=== PATIENT | female | born 1955 | race Caucasian/White ===

== ENCOUNTER 2024-10-30 17:40 | Emergency (ER) | payer MEDICARE, SELFPAY ==
--- OUTSIDE RECORDS SUMMARY | 2023-12-11 15:36 | XMS_ITS ---
Author Organization [facility] in [place] Address [address] [place] [address] Care Team Providers Care Spanish Speaking Babysitter Name Role Phone Shahid Lenz Primary Care Provider REASON FOR VISIT lab results Encounters Encounter Location Date Provider Diagnosis [facility] [address] [place] [address] 12/11/2023 Shahid Lenz Plan Of Treatment No Information Progress Notes * Nicki VALVERDE ADOB: 7 (68 yo F)Acc No.[id number]:12/11/2023 Patient: Nicki GAN :1955 A ge:68 Y S ex:Female Address:[address] [place] [address] * true * Date: Generated for Azalia oneill/Fapavel/eTransmitting on: 0 10/30/2024 05:53 PM EDT
--- OUTSIDE RECORDS SUMMARY | 2024-04-30 11:07 | XMS_ITS ---
Author Organization The [facility] in [place] Address [address] [place] [address] Care Team Providers Care Aviation Warfare Systems Operator Name Role Phone Shahid Lenz Primary Care Provider REASON FOR VISIT refill Medications Medication SIG (Take, Route, Frequency, Duration) Notes Start Date End Date Status Scopolamine HBr - apply .2- .3ml behind ear topical Q8hr for 10 days scopolamine cream .25 mg per 0.1 ml Active Encounters Encounter Location Date Provider Diagnosis [address] [address] 04/30/2024 Shahid Lenz Plan Of Treatment Medication Medication Name Sig Start Date Stop Date Notes Scopolamine HBr - apply .2- .3ml behin d ear topical Q8hr for 10 days scopolamine cream .2 5 mg per 0.1 ml Progress Notes * Nicki VALVERDE ADOB: (68 yo F)Acc No.[id number]:04/30/2024 Patient: Lewis TRACY Nicki Roberto :1955 A ge:68 Y S ex:Female Address:[address] [place] [address] * Refills Refill Scopolamine HBr Powder, -, topical, 3 Milliliter, apply .2- .3ml behind ear, Q8hr, 10 days, Refills=1 * true * Date: Generated for Azalia oneill/Larry/Jan on: 0 10/30/2024 05:53 PM EDT
--- OUTSIDE RECORDS SUMMARY | 2024-05-06 10:15 | XMS_ITS ---
Author Organization [facility] [place] Address [address] [place] [address] Care Team Providers Care Application Support Analyst Name Role Phone Shahid Lenz Primary Care Provider [phone] Allergies Allergen (clinical drug ingredient) Drug/Non Drug Allergy documented on EMR Reaction Allergy Type Onset Date Status ciprofloxacin Cipro Unknown Drug Allergy Act ely Levaquin Unknown Drug Allergy Active Substance with sulfonamide structure and antibacterial mechanism of action (substance) Sulfa Antibiotics Unknown Drug Allergy Active pravastatin Pravastatin Unknown Drug Allergy Act ely REASON FOR VISIT yearly check Medications Medication SIG (Take, Route, Frequency, Duration) Notes Start Date End Date Status Rosuvastatin Calcium 5 MG TAKE 1 TABLET BY MOUTH DAILY for 90 Active Scopolamine HBr - apply .2- .3ml behind ear topical Q8hr for 10 days scopolamine cream .25 mg per 0.1 ml Active Melatonin-Lemon [place] 10-1000 MG-MCG as directed Orally Active Metoprolol Tartrate 25 MG TAKE 1 TABLET BY MOUTH TWICE A DAY for 90 Active tiZANidine HCl 4 MG 2 tablets Orally at bedtime for 90 days 07/26/2022 Active DULoxetine HCl 60 MG TAKE ONE CAPSULE BY MOUTH DAILY for 90 days Active Lynparza 150 MG 2 tablets Orally Twice a day for 30 day(s) 12/10/2023 Active Meclizine HCl 25 MG 1 tablet as needed Orally every 12 hrs Active Lansoprazole 30 MG TAKE 1 CAPSULE BY MOUTH DAILY for 90 Active Levothyroxine Sodium 200 MCG TAKE 1 TABLET BY MOUTH EVERY DAY IN THE MORNING ON AN EMPTY STOMACH FOR 30 DAYS for 90 days Active Ciprofloxacin HCl 500 MG 1 tablet Orally every 12 hrs for 10 days 05/06/2024 Active Adult Aspirin Regimen 81 MG 1 tablet Orally Once a day Active Benzonatate 200 MG 1 capsule Orally Three times a day for 7 days 04/22/2023 Active Xifaxan 550 MG 1 tablet Orally every 8 hrs for 14 04/04/2023 Active Zofran Active traMADol HCl 50 MG 1 tablet as needed Orally 4 times a day for 7 days G62.9 09/10/2022 Active Vitamin D3 50 MCG (1999 MS) TAKE 1 TABLET BY MOUTH DAILY for 90 Active Social History Tobacco Use: Social History Observation Description Date Details (start date - stop date) Former Smoker 03/25/1973 - 03/25/1995 Tobacco Use/Smoking Question Answer Notes Patient is a former smoker When did you start smoking? 03/25/1973 When did you stop smoking? 03/25/1995 How long has it been since you last smoked? > 10 years Problems Problem Type SNOMED Code ICD Code Onset Dates Problem Status W/U Status Risk Notes Problem Hypertension (69220079) Hypertension (I10) Active confirmed Problem Hypercholesterolemia (13422003) Hypercholesterolemia (E78.00) Active confirmed Problem Gastroesophageal reflux disease (891904569) GERD (gastroesophageal reflux disease) (K21.9) Active confirmed Vital Signs Weight 179.60 lbs 05/06/2024 Height 64 in 05/06/2024 Blood pressure systolic 120 mm Hg 05/06/19 25 Blood pressure diastolic 72 mm Hg 025 BMI 30.82 kg/m2 05/06/2024 Encounters Encounter Location Date Provider Diagnosis [facility] [address] [place] [address] 05/06/2024 Shahid Lenz Hypothyroidism, unsp ecified E03.9 ; Hypertension I10 ; Hypercholesterolemia E78.00 ; GERD (gastroesophageal reflux disease) K21.9 and Fatigue R53.83 Assessments Encounter Date Diagnosis (ICD Code) Assessment Notes Treatment Notes Treatment Clinical Notes Section Notes 05/06/2024 Hypothyroidism, unspecified (ICD-10 - E03.9) 05/06/2024 Hypertension (ICD-10 - I10) 05/06/2024 Hypercholesterolemia (ICD-10 - E78.00) 05/06/2024 GERD (gastroesophage al reflux disease) (ICD-10 - K21.9) 05/06/2024 Fatigue (ICD-10 - R53.83) Plan Of Treatment Medication Medication Name Sig Start Date Stop Date Notes Ciprofloxacin HCl 500 MG 1 tablet Orally every 12 hrs for 10 days 05/06/2024 Pending Test Test Name Order Date HEMOGLOBIN A1C (GLYCO) 05/06/2024 IRON, TOTAL 05/06/2024 LIPID PANEL (CHOL/TRIG/HDL/LDL) 05/06/19 25 CBC WITH DIFF 05/06/2024 VITAMIN D, 25 LEVEL (TOTAL) 05/06/2024 Insulin Level 05/06/2024 THYROID PANEL (T4/TSH/FREE T3) 5 CMP (COMP MET WING) w/eGFR CKD-EPI 2024 Medications Administered Medication Instructions Date of Administration Dosage Notes Cyanocobalamin 05/06/2024 1 mL Progress Notes * Nicki VALVERDE ADOB: [birth year] (68 yo F)Acc No.[id number]:05/06/2024 Progress Note Patient: Nicki GAN Provider: Sukhjinder Lenz ([facility])MD :1955 A ge:68 Y S ex:Female Date:05/06/2024 Address:[address] [place], [place] [id number] Check In:01:59 PM ESTCheck O ut:03:03 PM EST Subjective: * Chief Complaints: * Y early check * HPI: G eneral: gered lung cancer - stil with inflammation bp well controled Choleesterol - on meds. * ROS: E ENT: hearing changes d enies, denies. v isual changes d enies, denies. n on-healing mouth sores d enies, denies. s wollen glands or neck lumps?denies, denies. h oarseness d enies, denies. s ore throat d enies, denies. d ifficulty swallowing d enies, denies. n ose bleeds d enies, denies. n laurie congestion d enies, denies. e ar ache d enies, denies. e ar discharge d enies, denies.?ringing in ears d enies, denies. l ight sensitivity d enies, denies. e ye pain denies, denies. b lurring d enies, denies. e ye irritation d enies, denies. d ouble vision d enies, denies. v ision loss d enies, denies. G eneral/Constitutional: Sweats: D enies, Denies. F atigue d enies, denies.?Sleep problems d enies, denies. A norexia d enies, denies. M alaise d enies, denies. W eight loss d enies, denies. F atigue or Weakness d enies, denies. F ever or Chills d enies, denies. C ardiovascular: Shortness of Breath w/lying flat d enies, denies. L ightheadedness/dizziness d enies, denies. C hest tightness/ heavy pressure d enies, denies.?Swelling of legs, ankles, or feet d enies, denies. W aking up with shortness of breath denies, denies. C hest pain d enies, denies. P alpitations d enies, denies.?Weight gain d enies, denies. R espiratory: Chronic or frequent cough d enies, denies. C oughing up blood d enies, denies. D ifficulty breathing d enies, denies. P roductive cough?denies, denies. S noring d enies, denies. S hortness of breath that awakens from sleep (PND) d enies, denies. C hest pain d enies, denies. S putum production d enies, denies. W heezing d enies, denies. M usculoskeletal: Joint pain d enies, denies. J oint Fluid d enies, denies. B ack pain d enies, denies. K nee pain d enies, denies. N byron pain d enies, denies. J oint Stiffness d enies, denies. M uscle cramps d enies, denies. Weakness of muscles d enies, denies. A rthritis d enies, denies. M uscle aches?denies, denies. P ain in shoulder(s) d enies, denies. S wollen joints d enies, denies. 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, left Modified On:07/25/2022 Status:confirmed H81.399 Vertigo, peripheral Modified On:07/25/2022 Status:confirmed K91.89 Biliary anastomotic leak Modified On:07/25/2022 Status:confirmed K56.600 Partial small bowel obstruction Modified On:07/25/2022 Status:confirmed Z98.0 Intestinal anastomos is present Modified On:07/25/2022 Status:confirmed U07.1 COVID-19 virus infec tion Modified On:07/25/2022 Status:confirmed R05.9 Cough, unspecified Modified On:07/25/2022 Status:confirmed B07.8 Other viral warts Modified On:07/25/2022 Status:confirmed E66.3 Overweight Modified On:07/25/2022 Status:confirmed G25.0 Essential tremor Modified On:04/04/2023U Status:confirmed L03.313 Cellulitis of chest wall Modified On:07/25/2022U Status:confirmed M51.9 Unspecified thoracic , thoracolumbar and lumbosacral intervertebral disc disorder Modified On:07/26/2022U Status:confirmed E03.9 Hypothyroidism, unsp ecified Modified On:04/04/2023 Status:confirmed C50.919 Malignant neoplasm o f unspecified site of unspecified female breast Modified On:09/11/2022 Status:confirmed 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 Modified On:09/11/2022 Status:confirmed J21.9 Acute bronchiolitis Modified On:04/22/2023U Status:confirmed K58.9 Irritable bowel Modified On:04/22/2023U Status:confirmed I10 Hypertension Modified On:05/06/2024 Status:confirmed E78.00 Hypercholesterolemia Modified On:05/06/2024 Status:confirmed K21.9 GERD (gastroesophage al reflux disease) Modified On:05/06/2024 Status:confirmed * Medical History: * Surgical History: R ight Breast Lumpectomy 2006Colostomy- Colorectal anastomsis, sm bowel resection Left Breast Lumpectomy 2019Bil Masectomy, left subclavian port removal 2020Total Hysterctomy Lap Ablation of liver mass 2021 * Hospitalization/Major Diagno stic Procedure: s ee above * Family History: F ather: . M other: . * Social History: T obacco Use: T obacco Use/Smoking P atient is a f ormer smoker W hen did you start smoking? 0 03/25/1973 W hen did you stop smoking? 0 03/25/1995 H ow long has it been since you last smoked??> 10 years * Medications: T akingAdult Aspirin Regimen 81 MG Tablet Delayed Release 1 tablet Orally Once a day Benzonatate 200 MG Capsule 1 capsule Orally Three times a day DULoxetine HCl 60 MG Capsule Delayed Release Particles TAKE ONE CAPSULE BY MOUTH DAILY Lansoprazole 30 MG Capsule Delayed Release TAKE 1 CAPSULE BY MOUTH DAILY Levothyroxine Sodium 200 MCG Tablet TAKE 1 TABLET BY MOUTH EVERY DAY IN THE MORNING ON AN EMPTY STOMACH FOR 30 DAYS Lynparza(Olaparib) 150 MG Tablet 2 tablets Orally Twice a day Meclizine HCl 25 MG Tablet 1 tablet as needed Orally every 12 hrs Melatonin-Lemon [place] 10-1000 MG-MCG Tablet as directed Orally Metoprolol Tartrate 25 MG Tablet TAKE 1 TABLET BY MOUTH TWICE A DAY Rosuvastatin Calcium 5 MG Tablet TAKE 1 TABLET BY MOUTH DAILY Scopolamine HBr - Powder apply .2- .3ml behind ear topical Q8hr , Notes to Pharmacist: scopolamine cream .25 mg per 0.1 mltiZANidine HCl 4 MG Tablet 2 tablets Orally at bedtime traMADol HCl 50 MG Tablet 1 tablet as needed Orally 4 times a day , Notes to Pharmacist: G62.9Vitamin D3 50 MCG (1999 UT) Tablet Chewable TAKE 1 TABLET BY MOUTH DAILY Xifaxan(rifAXIMin) 550 MG Tablet 1 tablet Orally every 8 hrs Zofran Medication List reviewed and reconciled with the patientTaking Adult Aspirin Regimen 81 MG Tablet Delayed Release 1 tablet Orally Once a day Taking Benzonatate 200 MG Capsule 1 capsule Orally Three times a day Taking DULoxetine HCl 60 MG Capsule Delayed Release Particles TAKE ONE CAPSULE BY MOUTH DAILY Taking Lansoprazole 30 MG Capsule Delayed Release TAKE 1 CAPSULE BY MOUTH DAILY Taking Levothyroxine Sodium 200 MCG Tablet TAKE 1 TABLET BY MOUTH EVERY DAY IN THE MORNING ON AN EMPTY STOMACH FOR 30 DAYS Taking Lynparza(Olaparib) 150 MG Tablet 2 tablets Orally Twice a day Taking Meclizine HCl 25 MG Tablet 1 tablet as needed Orally every 12 hrs Taking Melatonin-Lemon [place] 10- 1000 MG-MCG Tablet as directed Orally Taking Metoprolol Tartrate 25 MG Tablet TAKE 1 TABLET BY MOUTH TWICE A DAY Taking Rosuvastatin Calcium 5 MG Tablet TAKE 1 TABLET BY MOUTH DAILY Taking Scopolamine HBr - Powder apply .2- .3ml behind ear topical Q8hr , Notes to Pharmacist: scopolamine cream .25 mg per 0.1 mlTaking tiZANidine HCl 4 MG Tablet 2 tablets Orally at bedtime Taking traMADol HCl 50 MG Tablet 1 tablet as needed Orally 4 times a day , Notes to Pharmacist: G62.9Taking Vitamin D3 50 MCG (1999 UT) Tablet Chewable TAKE 1 TABLET BY MOUTH DAILY Taking Xifaxan(rifAXIMin) 550 MG Tablet 1 tablet Orally every 8 hrs Taking Zofran Medication List reviewed and reconciled with the patient * Allergies: P ravastatinCiproLevaquinSulfa Antibioticsno[Allergies Verified] Objective: * Vitals: W t:179.60lbs, Ht: 64 in, BP:120/72mm Hg, BMI:30.82Index, Ht-cm: 162.56 cm, Wt-k.47 kg. * Examination: P hysical Exam: GENERAL: w ell developed, well nourished, in no acute distress , well developed, well nourished, in no acute distress. HEAD: n ormocephalic/atraumatic , normocephalic/atraumatic.? EYES: p upils equal, round and reactive to light, conjunctivae and sclerae normal , pupils equal, round and reactive to light, conjunctivae and sclerae normal.? EARS: n o deformity or lesion of external ear, canals and TM appear normal bilaterally, TM's intact, not inflamed with normal light reflex, hearing grossly normal to conversational speech , no deformity or lesion of external ear, canals and TM appear normal bilaterally, TM's intact, not inflamed with normal light reflex, hearing grossly normal to conversational speech. NOSE: n o deformity, discharge, inflammation, or lesions , no deformity, discharge, inflammation, or lesions. MOUTH: m ucous membranes moist, normal oropharynx and posterior pharynx without lesions or exudates, tongue normal, dentition normal , mucous membranes moist, normal oropharynx and posterior pharynx without lesions or exudates, tongue normal, dentition normal. NECK: n byron supple, no masses or palpable cervical nodes, trachea midline, thyroid without nodules, masses, tenderness, or enlargement , neck supple, no masses or palpable cervical nodes, trachea midline, thyroid without nodules, masses, tenderness, or enlargement. CHEST: n o chest wall deformity, no chest wall tenderness , no chest wall deformity, no chest wall tenderness. LUNGS: n ormal respiratory effort and clear to auscultation, no wheezes, rales, or rhonchi, good air exchange , normal respiratory effort and clear to auscultation, no wheezes, rales, or rhonchi, good air exchange. CARDIO: r egular rate and rhythm, normal S1 and S2, nor murmur, rub, or gallop , regular rate and rhythm, normal S1 and S2, nor murmur, rub, or gallop. PULSES: n ormal capillary refill , normal capillary refill.? ABDOMEN: s oft, non-distended, non-tender, no masses , soft, non-distended, non-tender, no masses. MUSCULOSKELETAL: n o deformity or scoliosis noted, normal range of motion, joints normal, no erythema, edema, effusion, or ecchymosis , no deformity or scoliosis noted, normal range of motion, joints normal, no erythema, edema, effusion, or ecchymosis. EXTREMITY: n o clubbing, cyanosis, edema, or deformity with normal ROM in both upper and lower bilateral extremities , no clubbing, cyanosis, edema, or deformity with normal ROM in both upper and lower bilateral extremities. NEUROLOGIC: g rossly normal , grossly normal. SKIN: n o rashes, ulcerations, or suspicious lesions , no rashes, ulcerations, or suspicious lesions. LYMPH NODES: n o cervical adenopathy, nodes normal , no cervical adenopathy, nodes normal. MENTAL STATUS: a lert and oriented x3, normal mood and affect , alert and oriented x3, normal mood and affect. Assessment: * Assessment: 1. H ypothyroidism, unspecified - E03.9 (Primary) 2 . H ypertension - I10? 3. H ypercholesterolemia - E78.00 4 . G ERD (gastroesophageal reflux disease) - K21.9 5 . F atigue - R53.83 Plan: * Treatment: 2. H ypertension L AB: HEMOGLOBIN A1C (GLYCO) L AB: IRON, TOTAL L AB: LIPID PANEL (CHOL/TRIG/HDL/LDL) L AB: CBC WITH DIFF L AB: VITAMIN D, 25 LEVEL (TOTAL) L AB: Insulin Level L AB: THYROID PANEL (T4/TSH/FREE T3) L AB: CMP (COMP MET WING) w/eGFR CKD-EPI 3. H ypercholesterolemia L AB: HEMOGLOBIN A1C (GLYCO) L AB: IRON, TOTAL L AB: LIPID PANEL (CHOL/TRIG/HDL/LDL) L AB: CBC WITH DIFF L AB: VITAMIN D, 25 LEVEL (TOTAL) L AB: Insulin Level L AB: THYROID PANEL (T4/TSH/FREE T3) L AB: CMP (COMP MET WING) w/eGFR CKD-EPI 4. G ERD (gastroesophageal reflux disease) L AB: HEMOGLOBIN A1C (GLYCO) L AB: IRON, TOTAL L AB: LIPID PANEL (CHOL/TRIG/HDL/LDL) L AB: CBC WITH DIFF L AB: VITAMIN D, 25 LEVEL (TOTAL) L AB: Insulin Level L AB: THYROID PANEL (T4/TSH/FREE T3) L AB: CMP (COMP MET WING) w/eGFR CKD-EPI * Therapeutic Injections: Cyanocobalamin : 1 mL (Route: Intramuscular) given by Kaycee Crawford , on right deltoid (Fatigue) * Procedure Codes: [id number] THERAP.INJ. OF MED. INTRAMUSCULAR OR [id number] VITAMIN B-12 < 1000 MCG * * Sign off status: Completed Visit Status: C HK (Check Out) true * Provider: Sukhjinder Lenz ([facility])MD Date: 0 05/06/2024 Generated for Printi ng/Famartag/eTransmitting on: 0 10/30/2024 05:54 PM EDT History and Physical Notes * HPI (History of Present Illness) Category Sub-Category Detail Notes Category Not es General gered lung cancer - stil with inflammation bp well controled Choleesterol - on meds Examination Category Sub-Category Detail Notes Category Not es Physical Exam GENERAL: well developed, well nourished, in no acute distress , well developed, well nourished, in no acute distress HEAD: normocephalic/atraum atic , normocephalic/atraumatic EYES: pupils equal, round and reactive to light, conjunctivae and sclerae normal , pupils equal, round and reactive to light, conjunctivae and sclerae normal EARS: no deformity or lesi on of external ear, canals and TM appear normal bilaterally, TM's intact, not inflamed with normal light reflex, hearing grossly normal to conversational speech , no deformity or lesion of external ear, canals and TM appear normal bilaterally, TM's intact, not inflamed with normal light reflex, hearing grossly normal to conversational speech NOSE: no deformity, discha rge, inflammation, or lesions , no deformity, discharge, inflammation, or lesions MOUTH: mucous membranes lorraine st, normal oropharynx and posterior pharynx without lesions or exudates, tongue normal, dentition normal , mucous membranes moist, normal oropharynx and posterior pharynx without lesions or exudates, tongue normal, dentition normal NECK: neck supple, no mass es or palpable cervical nodes, trachea midline, thyroid without nodules, masses, tenderness, or enlargement , neck supple, no masses or palpable cervical nodes, trachea midline, thyroid without nodules, masses, tenderness, or enlargement CHEST: no chest wall deform ity, no chest wall tenderness , no chest wall deformity, no chest wall tenderness LUNGS: normal respiratory e ffort and clear to auscultation, no wheezes, rales, or rhonchi, good air exchange , normal respiratory effort and clear to auscultation, no wheezes, rales, or rhonchi, good air exchange CARDIO: regular rate and rhy thm, normal S1 and S2, nor murmur, rub, or gallop , regular rate and rhythm, normal S1 and S2, nor murmur, rub, or gallop PULSES: normal capillary ref ill , normal capillary refill ABDOMEN: soft, non-distended, non-tender, no masses , soft, non-distended, non- tender, no masses RECTAL: MUSCULOSKELETAL: no deformity or scol iosis noted, normal range of motion, joints normal, no erythema, edema, effusion, or ecchymosis , no deformity or scoliosis noted, normal range of motion, joints normal, no erythema, edema, effusion, or ecchymosis EXTREMITY: no clubbing, cyanosi s, edema, or deformity with normal ROM in both upper and lower bilateral extremities , no clubbing, cyanosis, edema, or deformity with normal ROM in both upper and lower bilateral extremities NEUROLOGIC: grossly normal , ernie ssly normal SKIN: no rashes, ulceratio ns, or suspicious lesions , no rashes, ulcerations, or suspicious lesions LYMPH NODES: no cervical adenopat hy, nodes normal , no cervical adenopathy, nodes normal MENTAL STATUS: alert and oriented x 3, normal mood and affect , alert and oriented x3, normal mood and affect
--- OUTSIDE RECORDS SUMMARY | 2024-10-28 13:00 | XMS_ITS | Encounter Summary ---
Author Organization [facility] Address [address] [place] [id number] Care Team Providers Care Allergist Name Role Phone Kraig Lenz MD Primary Care Provider +- Jenn Qureshi RN Unavailable [phone] Abdirashid Anderson MD Unavailable [phone] Tamia Martinez APRN.FIRMWARE ARCHITECT Unavailable [phone] Source Comments In the event this information is protected by the Federal Confidentiality of Alcohol and Drug AbusePatient Records regulations: The Federal rules restrict any use of the information to criminally investigate or prosecute any alcohol or drug abuse patient.[facility] Encounter Details Date Type Department Care Team (Latest Contact Info) Description 10/28/2024 1:00 PM EDT Infusion Center Hematology/Oncology [address] [place] [address] [place] [address] Megaloblastic anemia due to vitamin B12 deficiency (Primary Dx); 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); Dehydration Social History Tobacco Use Types Packs/Day Years Used Date Smoking Tobacco: Former Cigarettes 1 15 0 12/10/1980 - 12/11/1995 Passive Smoke Exposure: Past Smokeless Tobacco: Never Alcohol Use Standard Drinks/Week Comments No 0 (1 standard drink = 0.6 oz pur e alcohol) PHQ-2 Answer Date Recorded PHQ-2 score 0 09/27/2023 Area Deprivation Index Answer Date Jalen rded National Score (1-100), lower number is lower ri sk 81 08/31/2022 State Score (1-10), lower number is lower risk 7 08/31/2022 Data from: https://www.neighborhoodatlas.medicine.[facility]/. Last address used for calculation [address] 08/31/2022 Comments No Sex and Gender Information Value Date Recorded Sex Assigned at Female 01/04/2022 8:03 PM EDT Legal Sex Female 10:12 AM EST Gender Identity Female 01/04/2022 8:03 PM EDT Sexual Orientation Straight 08/30/2022 7: 33 PM EDT documented as of this encounter Last Filed Vital Signs Vital Sign Reading Time Taken Comments Blood Pressure 124/62 10/28/2024 1:06 PM EDT Pulse 61 10/28/2024 1:06 PM EDT Temperature 36.7 C (98 F) 10/28/2024 1:06 PM EDT Respiratory Rate 16 10/28/2024 1:06 PM EDT Oxygen Saturation 96% 10/28/2024 1:06 PM EDT Inhaled Oxygen Concentration - - Weight - - Height - - Body Mass Index - - documented in this encounter Functional Status * Are you deaf or do you have serious difficulty hearing? Answer Date of Assessment Author No 01/12/2022 10:35 AM EDT Yudith Osullivan RN * Are you blind or do you have serious difficulty seeing, even when wearing glasses? Answer Date of Assessment Author No 01/12/2022 10:35 AM EDT Yudith Osullivan RN * Do you have serious difficulty walking or climbing stairs? Answer Date of Assessment Author No 01/12/2022 10:35 AM EDT Yudith Osullivan RN * Do you have difficulty dressing or bathing? Answer Date of Assessment Author No 01/12/2022 10:35 AM EDT Yudith Osullivan RN * Because of a physical, mental, or emotional condition, do you have difficulty doing errands alone such as visiting a doctor's office or shopping? Answer Date of Assessment Author No 01/12/2022 10:35 AM EDT Yudith Osullivan RN documented as of this encounter Mental Status * Because of a physical, mental, or emotional condition, do you have serious difficulty concentrating, remembering, or making decisions? Answer Entry Date Author No 01/12/2022 10:35 AM EDT Yudith Osullivan RN documented in this encounter Plan of Treatment Upcoming Encounters Date Type Department Care Team (Latest Contact Info) Description 11/05/2024 11:40 AM EDT [facility] Hematology/Oncology [address] [place] [place] [address] Abdirashid Anderson MD [address] [place] [address] Harmon 11/10/2024 11:30 AM EDT Office Visit General Surgery [address] [place] [address] [place] [id number] [facility] [address] [place] [address] New; increase liver lesion size - ref by Dr. 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) Dehydration documented in this encounter Administered Medications Inactive Administered Medications - up to 3 most recent administrations Medication Order MAR Action Action Date Dose Rate Site cyanocobalamin 1,000 mcg injection 1,000 mcg, INTRAMUSCULAR, ONCE, 1 dose, On Sat10/28/24 at 1330Indications:Tai loblastic anemia due to vitamin B12 deficiency Given 10/28/2024 1:17 PM EDT 1,000 mcg Arm, Right NaCl 0.9% iv infusion 1,000 mL/hr (rounded to 999 mL/hr), INTRAVENOUS, Administer over 1 Hours, ONCE, 1 dose, On Sat10/28/24 at 1330Indications:Lester ocarcinoma of left breast metastatic to liver (HCC),Dehydration New Bag/Syringe/Lesvia le 10/28/2024 1:13 PM EDT 1,000 mL/hr 999 mL/hr documented in this encounter Care Teams Allergist Relationship Specialty Start Date End Date Kraig Lenz MD [address] [place] [address] PCP - General Family Medicine 11/28/21 Jenn Qureshi, CHRISTOPHER [address] [place] [address] Specialty Rehabilitation Clerk Hematology/Oncology 05/27/23 Abdirashid Anderson MD [address] [place] [address] Physician Hematology/Oncology 05/27/23 Tamia Martinez APRN.FIRMWARE ARCHITECT [address] [place] [address] Nurse Practitioner Hematology/Oncology 05/27/23 documented as of this encounter
--- OUTSIDE RECORDS SUMMARY | 2024-10-29 20:00 | XMS_ITS | Encounter Summary ---
Author Organization [facility] Address [address] [place] [address] Care Team Providers Care Television Equipment Operator Name Role Phone Kraig Lenz MD Primary Care Provider [phone] Qureshi RN Unavailable [phone] Abdirashid Anderson MD Unavailable [phone] Tamia Martinez APRN.INDUSTRIAL DESIGNER Unavailable [phone] Source Comments In the event this information is protected by the Federal Confidentiality of Alcohol and Drug AbusePatient Records regulations: The Federal rules restrict any use of the information to criminally investigate or prosecute any alcohol or drug abuse patient.[facility] Reason for Visit * Reason Comments Fever With History Of Cancer Breast canc er with mets to the liver. Pt stated fever at home today. Pt is currently on Oral cancer medications. Pt does not have fever upon arrival but has elevated heart rate. Encounter Details Date Type Department Care Team (Late st Contact Info) Description 10/29/2024 8:00 PM EDT - 10/29/2024 11:22 PM EDT Emergency [facility] Emergency Dept [address] [id number] Fever, stage 4 cancer Discharge Disposition: Home Social History Tobacco Use Types Packs/Day Years [...] is lower risk 7 08/31/2022 Data from: https://www.neighborhoodatlas.medicine.[facility]/. Last address used for calculation [address] [...] Sign Reading Time Taken Comments Blood Pressure 138/80 10/29/2024 10:59 PM EDT Pulse 86 10/29/2024 10:52 PM EDT Temperature 36.7 C (98 F) 10/29/2024 10:52 PM EDT Respiratory Rate 16 10/29/2024 10:52 PM EDT Oxygen Saturation 96% 10/29/2024 10:59 PM EDT Inhaled Oxygen Concentration - - Weight 82.1 kg (181 lb) 10/29/2024 7:59 PM EDT Height 162.6 cm (5' 4 ) 10/29/2024 7:59 PM EDT Body Mass Index 31.07 10/29/2024 7:59 PM EDT documented in this encounter Functional Status * [...] of Assessment Author No 01/12/2022 10:35 AM Yudith Carreon RN * Do you have difficulty dressing or bathing? Answer Date of Assessment Author No 01/12/2022 10:35 AM Yudith Carreon RN * Because of a physical, mental, or emotional condition, do you have difficulty doing errands alone such as visiting a doctor's office or shopping? Answer Date of Assessment Author No 01/12/2022 10:35 AM Yudith Carreon RN documented as of this encounter Mental Status * Because of a physical, mental, or emotional condition, do you have serious difficulty concentrating, remembering, or making decisions? Answer Entry Date Author No 01/12/2022 10:35 AM Yudith Carreon RN documented in this encounter Discharge Instructions * Attachments The following attachments cannot be sent through Care Everywhere. * Fever Unclear Etiology (ITALIAN) documented in this encounter Medications at Time of Discharge amoxicillin-clav ulanate potassium (AUGMENTIN) 875-125 mg per tablet Take 1 tablet by mouth two times a day for 5 days. 10 tablet 10/29/2024 11/03/2024 azithromycin (ZITHROMAX) 250 mg tablet Take 2 tablets by mouth once daily for 1 day, THEN 1 tablet once daily for 4 days. 6 tablet 10/29/2024 11/03/2024 ondansetron (ZOFRAN) 8 mg tablet TAKE 1 TABLET BY MOUTH EVERY 8 HOURS NEEDED FOR NAUSEA AND VOMITING 90 tablet 1 09/28/2024 folic acid 1 mg tablet TAKE 1 TABLET BY MOUTH EVERY DAY 90 tablet 3 08/03/2024 emollient combo no.59, bulk, (CUSTOM BASE PCCA LIPODERM) crea Apply to affected area. prochlorperazine (COMPAZINE) 10 mg tablet Take 1 tablet by mouth every 6 hours as needed. 100 tablet 1 06/06/2023 3:39 PM EDT 05/29/2023 tiZANidine (ZANAFLEX) 4 mg tablet Take 8 mg by mouth daily at bedtime. 04/04/2023 metoprolol tartrate, short acting, (LOPRESSOR) 25 mg tablet Take 25 mg by mouth two times a day. cholecalciferol, vitamin D3, 10 mcg (400 unit) cap Take 400 Units by mouth once daily. Biotin 1 mg tab Take 1,000 mcg by mouth. DULoxetine (CYMBALTA) 60 mg capsule Take 60 mg by mouth once daily. 11/05/2020 lansoprazole (PREVACID) 30 mg capsule Take 30 mg by mouth once daily. loperamide (IMODIUM) 2 mg cap(s) Take 4 mg by mouth. Takes BID 09/22/2021 meloxicam (MOBIC) 7.5 mg tablet Take 7.5 mg by mouth once daily. rosuvastatin (CRESTOR) 5 mg tablet Take 5 mg by mouth once daily. 10/14/2020 simethicone, chewable (MYLICON) 80 mg chewable tablet Take 80 mg by mouth every 6 hours as needed. levothyroxine (SYNTHROID) 175 mcg tablet Take 175 mcg by mouth once daily. 08/17/2012 Aspirin 81 mg Tab Take 81 mg by mouth. documented as of this encounter ED Notes * Mela Moise RN - 10/29/2024 11:21 PM EDT Pt A&Ox3. Equal even resp rate. Proper use of medications discussed pt. Pt verbalizes understanding. Pt home with medications to be filled. Discharged instructions hi-lighted and reviewed with pt. Pt verbalized understanding. Will follow-up with physician as instructed. No questions/ Concerns at this time of discharge. Ambulated at discharge with steady gait. * Nisha Ramírez PA-C - 10/29/2024 11:10 PM EDT ED Provider Note Patient Name: Nicki Valverde : 1955 SERVICE DATE: 10/29/24 History Patient presents with: Fever With History Of Cancer: Breast cancer with mets to the liver. Pt stated fever at home today. Pt is currently on Oral cancer medications. Pt does not have fever upon arrival but has elevated heart rate. This is a 69-year-old female with a history of breast cancer on oral anticancer drug presenting to the emergency department for evaluation of a fever. Patient states that starting last night, she wasnauseous and had a headache. She took her temperature this evening around 7 PM and found it to be 102.0 ??F. Took Tylenol and fever resolved. Denies rash, shortness of breath, cough, sore throat, abdominal pain, dysuria, leg swelling, back pain. She is scheduled to get an MRI tomorrow because she was found to have new liver metastasis with elevated liver enzymes. 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 used: No PAST MEDICAL HISTORY Diagnosis Date Arthritis Basal cell carcinoma (BCC) of face Biliary colic Breast cancer (HCC) Chronic kidney disease Diverticulitis Dizziness GERD (gastroesophageal reflux disease) Hx of sleep apnea Hyperlipidemia Hypertension Hypothyroidism Kidney stones Liver metastasis Megaloblastic anemia due to vitamin B12 deficiency 08/09/2023 Osteopenia PAST SURGICAL HISTORY Procedure Laterality Date BREAST LUMPECTOMY HX 11/09/20192016 BUNIONECTOMY, LAPIDUS-TYPE Right 2003 BX OF BREAST; INCISIONAL Right 2006&2008 BX OF BREAST; INCISIONAL Left 2016 DELIVERY ONLY 1982,1983,1985 HERNIA REPAIR HX 03/24/2019 IMPLANT CATH INSERTION (AG) 01/18/2020 LAP ABLATION LIVER TUMOR(S) CYRO 01/10/2022 LAPAROSCOPIC HEMICOLECTOMY LAPAROSCOPIC HEMICOLECTOMY 07/28/2021 MASTECTOMY,SIMPLE Bilateral 02/09/2021 PAST SURGICAL HISTORY OF reversal of ostomy PORT REMOVAL 04/25/2020 REMOVAL GALLBLADDER 03/24/2019 REVISE MEDIAN N/CARPAL TUNNEL SURG Left THYROIDECTOMY TOTAL ABDOM HYSTERECTOMY WOUND VAC 02/09/2021 FAMILY HISTORY Problem Relation Age of Onset Gall Stones Mother Alcohol abuse Father Kidney stones Paternal Aunt Breast Cancer Paternal Aunt Liver Cancer Half-brother Uterine Cancer Paternal cousin Social History Tobacco Use Smoking status: Former Current packs/day: 0.00 Average packs/day: 1 pack/day for 15.0 years (15.0 ttl pk-yrs) Types: Cigarettes Start date: 12/10/1980 Quit date: 12/11/1995 Years since quittin.9 Passive exposure: Past Smokeless tobacco: Never Vaping Use Vaping status: Never Used Substance and Sexual Activity Alcohol use: No Drug use: No Sexual activity: Not on file ALLERGIES Allergen Reactions Levofloxacin Anaphylaxis Pravastatin Other: See Comments Sulfa (Sulfonamide * Hives, Vomiting Sular [Nisoldipine] Vomiting Review of Systems Constitutional: Positive for fever. HENT: Negative. Eyes: Negative. Respiratory: Negative. Cardiovascular: Negative. Gastrointestinal: Negative. Genitourinary: Negative. Musculoskeletal: Negative. Skin: Negative. Neurological: Negative. Psychiatric/Behavioral: Negative. Physical Exam Vitals BP Pulse Temp Temp src Resp SpO2 Weight Height 10/29/24195710/29/24195710/29/24195710/29/24195710/29/24195710/29/24195710/29/24195810/29/241958 134/69 (!) 125 36.9 ??C (98.4 ??F) Oral 18 95 % 82.1 kg (181 lb) 1.626 m (5' 4 ) Physical Exam Vitals and nursing note reviewed. Constitutional: General: She is not in acute distress. Appearance: Normal appearance. She is well-developed. She is not ill-appearing, toxic-appearing or diaphoretic. HENT: Head: Normocephalic and atraumatic. Right Ear: External ear normal. Left Ear: External ear normal. Nose: Nose normal. Mouth/Throat: Mouth: Mucous membranes are moist. Eyes: Conjunctiva/sclera: Conjunctivae normal. Pupils: Pupils are equal, round, and reactive to light. Cardiovascular: Rate and Rhythm: Normal rate and regular rhythm. Heart sounds: Normal heart sounds. No murmur heard. No friction rub. No gallop. Pulmonary: Effort: Pulmonary effort is normal. No respiratory distress. Breath sounds: Normal breath sounds. No stridor. No wheezing, rhonchi or rales. Comments: Speaking in complete sentences without evidence of airway compromise Abdominal: General: Abdomen is flat. There is no distension. Palpations: Abdomen is soft. There is no mass. Tenderness: There is abdominal tenderness (Right upper quadrant tenderness, chronic due to liver mets.). There is no guarding or rebound. Musculoskeletal: General: No tenderness or deformity. Normal range of motion. Cervical back: Normal range of motion and neck supple. Right lower leg: No edema. Left lower leg: No edema. Skin: General: Skin is warm and dry. Capillary Refill: Capillary refill takes less than 2 seconds. Coloration: Skin is not jaundiced or pale. Findings: No erythema or rash. Neurological: General: No focal deficit present. Mental Status: She is alert and oriented to person, place, and time. Cranial Nerves: No cranial nerve deficit. Sensory: No sensory deficit. Comments: NIH=0 Psychiatric: Mood and Affect: Mood normal. Behavior: Behavior normal. Thought Content: Thought content normal. Judgment: Judgment normal. Diagnostic Testing ED Labs Ordered and Reviewed COMPREHENSIVE METABOLIC PANEL - Abnormal; Notable for the following components: Result Value Ref Range Protein, Total 6.2 (*) 6.3 - 8.0 g/dL Bilirubin, Total 6.2 (*) 0.2 - 1.3 mg/dL AST 167 (*) 13 - 35 U/L ALT 127 (*) 7 - 38 U/L Glucose 124 (*) 74 - 99 mg/dL CO2 21 (*) 22 - 30 mmol/L All other components within normal limits MAGNESIUM - Abnormal; Notable for the following components: Magnesium 1.6 (*) 1.7 - 2.3 mg/dL All other components within normal limits COMPLETE BLOOD COUNT AND DIFFERENTIAL - Abnormal; Notable for the following components: RBC 2.85 (*) 3.90 - 5.20 m/uL Hemoglobin 11.3 (*) 11.5 - 15.5 g/dL Hematocrit 30.6 (*) 36.0 - 46.0 % MCV 107.4 (*) 80.0 - 100.0 fL MCH 39.6 (*) 26.0 - 34.0 pg MCHC 36.9 (*) 30.5 - 36.0 g/dL RDW-CV 15.7 (*) 11.5 - 15.0 % Platelet Count 140 (*) 150 - 400 k/uL Abs Neut 8.64 (*) 1.45 - 7.50 k/uL Abs Lymph 0.13 (*) 1.00 - 4.00 k/uL Absolute nRBC 0.03 (*) <0.01 k/uL All other components within normal limits URINALYSIS (WITH MICROSCOPIC) WITH CULTURE IF INDICATED - Abnormal; Notable for the following components: Color Dark Yellow (*) Yellow Clarity Turbid (*) Clear Bilirubin, Urine 1+ (*) Negative Protein, Urine 1+ (*) Trace, Negative Urobilinogen 2+ (*) Normal WBC, Urine 6-10 /HPF (*) 0-5 /HPF RBC, Urine 3-5 /HPF (*) 0-3 /HPF Bacteria Rare (*) None Seen /HPF All other components within normal limits SEPSIS LACTATE W/ REFLEX (INITIAL) - Normal COVID & INFLUENZA A/B & RSV PCR, EXPEDITED - Normal Narrative: Reference Range (the expected result in uninfected individuals): Not detected BACTERIAL CULTURE, BLOOD BACTERIAL CULTURE, BLOOD Procedures ED Course / Clinical Impression Clinical Impressions as of 10/29/24 2323 Fever of unknown origin (FUO) Elevated liver enzymes Elevated bilirubin MDM / Disposition / Plan This is a pleasant 69-year-old female presenting to the emergency department for evaluation of fever. On exam, she is hemodynamically stable and afebrile. No jaundice. Lung sounds clear to auscultation. No leg edema. Noted to have tenderness to palpation of the right upper quadrant which patient states is chronic due to known liver mets. CBC shows no evidence of neutropenia. Liver enzymes and bilirubin are elevated on CMP, patient has known diagnosis of liver mets and is getting an MRI tomorrow. Urinalysis is not suggestive of UTI. COVID/flu/RSV negative. Patient remains afebrile during ED stay. I feel she stable for discharge home. Offered antibiotics prior to discharge, patient does not want IV antibiotics so she was given a dose of oral antibiotics. Recommend she follow-up with her oncologist after MRI tomorrow. Released in good condition with stable vital signs. The patient and/or family -had the results of all tests and diagnosis explained to them -were given both verbal and written discharge instructions -were instructed of the importance of close follow-up -educated on strict return precautions, to return to the ED if no improvement of symptoms or pain worsens or new symptoms arise. -were told that close follow-up is essential for good health and good outcomes Vital signs were reviewed. Triage records were reviewed. Medical records were reviewed. Nursing notes were reviewed and incorporated. History and Record Review Clinical information obtained from an independent historian. History obtained from or confirmed by:spouse. External record(s) reviewed: prior outpatient record. Findings from review of outpatient records: History of breast cancer Differential Diagnoses - Fever of unknown origin - COVID/flu/RSV is less likely for the following reason(s): laboratory studies not suggestive - Pneumonia is less likely for the following reason(s): no evidence on imaging - Cholecystitis is less likely for the following reason(s): H&P not suggestive - UTI is less likely for the following reason(s): laboratory studies not suggestive - Sepsis is less likely for the following reason(s): laboratory studies not suggestive - Neutropenic fever is less likely for the following reason(s): laboratory studies not suggestive Management I performed an independent interpretation of the following:imaging Imaging: My interpretation is No acute chest process Radiology Reports XR CHEST 2V FRONTAL/LAT Final Result IMPRESSION: Unremarkable exam with no acute radiographic abnormality. 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 Transcribe Date/Time: Oct 29 2024 8:38P Dictated by : PAOLA ZARAGOZA MD This examination was interpreted and the report reviewed and electronically signed by: PAOLA ZARAGOZA MD on Oct 29 2024 8:38PM EST Meds Given During Visit ED Medication Administration from 10/29/20241951 to 10/29/20242321 Date/Time Order Dose Route Action 10/29/20242316 EDT amoxicillin-clavulanate potassium 875 mg tab(s) (AUGMENTIN) 875 mg ORAL Given 10/29/20242316 EDT azithromycin 500 mg tab(s) (ZITHROMAX) 500 mg ORAL Given Contributing Factors Chronic conditions affecting care: cancer (see comments) and hypertension Chronic conditions addressed by: As above Re-evaluation clinically improved and feeling better and vital signs in acceptable range Nisha Ramírez PA-C Disposition The patient was discharged. Yes Escalation of care including transfer to ED considered. Reason(s) for deciding against admission/observation: No conditions were found that warrant admission or observation Counseled patient and spouse regarding lab results, radiology results and suspected diagnosis. Prescriptions and Discharge Orders Discharge Orders amoxicillin-clavulanate potassium (AUGMENTIN) 875-125 mg per tablet 2 TIMES DAILY Route: ORAL Dose: 1 tablet azithromycin (ZITHROMAX) 250 mg tablet DAILY Route: ORAL SIGNATURE: Nisha Ramírez PA-C - NISHA RAMÍREZ 10/29/242325 * Autumn Prater RN - 10/29/2024 10:39 PM EDT Bed: 54-ED Expected date: Expected time: Means of arrival: Comments: * Milan Salinas DO - 10/29/2024 7:57 PM EDT ED TRIAGE PROVIDER NOTE Patient Name: Nicki Valverde Service Date: 10/29/24 BRIEF HPI: This is a 69 year old female who presents to the ED with: hx of breast ca with spread to liver. Fever at home this am. No active chemotherapy. Denies dysuria, cough, abd pain, rash, or sore throat BRIEF EXAM: NAD Awake and Alert Non labored breathing INITIAL WORKUP AND DECISION MAKING: Orders Placed This Encounter XR CHEST 2V FRONTAL/LAT COMPREHENSIVE METABOLIC PANEL (BMP+LFT) MAGNESIUM BLOOD CBC + AUTO DIFF Urinalysis w Microscopic, reflex Culture COVID & Influenza A/B & RSV PCR, Expedited SIGNATURE: Milan Salinas DO documented in this encounter Miscellaneous Notes * [facility] - Nereida Artis RT(R) - 10/29/2024 8:23 PM EDT Radiology Service Progress Note PATIENT NAME: Nicki Valverde DATE OF SERVICE: October 29, 2024 TIME: 8:23 PM PATIENT IDENTITY VERIFICATION COMPLETED USING TWO (2) IDENTIFIERS: Name and Date of confirmedby patient verbally and Name and Date of confirmed by identification band. FALL SCREENING: Has the patient had 2 falls in the last year or 1 fall with injury or currently using an Ambulatory Assistive Device (Walker, Cane, Wheelchair, Crutches, etc.)? Emergency Room Patient: Screened in ED PATIENT GENDER DATA: Assigned female at . status: : No status:NO. PATIENT RELEVANT IMPLANT DATA REVIEWED: Not Applicable PATIENT PRESENTS WITH AN IMPLANTABLE OR ATTACHED TROPHY ASSEMBLER: No RADIOLOGY DEPARTMENT: General X-ray: Exam(s) Completed: Chest X-Ray PERIPHERAL IV DATA: Not applicable SIGNED BY: RT Brenda(Mallika) October 29, 2024 8:23 PM documented in this encounter Plan of Treatment Upcoming Encounters Date Type Department Care Team (Latest Contact Info) Description 11/05/2024 11:40 AM EDT [facility] Hematology/Oncology [address] [place] [address] [place] [address] Abdirashid Anderson MD [address] [place] [address] Harmon 11/10/2024 11:30 AM EDT Office Visit General Surgery [address] [facility] [address] [place] [address] [place] [address] [facility] [address] [place] [address] New; increase liver lesion size - ref by Dr. Anderson *schedule on Pending Results Name Type Priority Associated Diagnoses Date /Time BACTERIAL CULTURE, BLOOD Microbiology STAT 10/29/2024 8:40 PM EDT BACTERIAL CULTURE, BLOOD Microbiology STAT 10/29/2024 8:44 PM EDT documented as of this encounter Procedures Procedure Name Priority Date/Time Associated Diagnosis Comments URINALYSIS (WITH MICROSCOPIC) WITH CULTURE IF INDICATED STAT 10/29/2024 8:53 PM EDT COVID & INFLUENZA A/B & RSV PCR, EXPEDITED STAT 10/29/2024 8:45 PM EDT BACTERIAL CULTURE, BLOOD STAT 10/29/2024 8:44 PM EDT MAGNESIUM BLD STAT 10/29/2024 8:40 PM EDT SEPSIS LACTATE W/ REFLEX (INITIAL) STAT 10/29/2024 8:40 PM EDT BACTERIAL CULTURE, BLOOD STAT 10/29/2024 8:40 PM EDT COMPREHENSIVE METABOLIC PANEL STAT 10/29/2024 8:40 PM EDT CBC + DIFF STAT 10/29/2024 8:40 PM EDT XR CHEST 2V FRONTAL/LAT STAT 10/29/2024 8:23 PM EDT documented in this encounter Results * (ABNORMAL) URINALYSIS (WITH MICROSCOPIC) WITH CULTURE IF INDICATED (10/29/2024 8:53 PM EDT) Color Dark Yellow(A) Yellow 10/29/2024 9:[address] [facility] Clarity Turbid(A) Clear 10/29/2024 9:[address] [facility] Glucose, Urine Negative Trace, Negative 10/29/2024 9:[address] [facility] Bilirubin, Urine 1+(A) Negative 10/30/19 25 9:[address] [facility] Comment:Suggest correlation with clinical findings and serum bilirubin if clinically indicated. Ketones, Urine Negative Negative, Trace 10/29/2024 9:[address] [facility] Specific [place], Ur 1.019 1.005 - 1.030 10/29/2024 9:[address] [facility] Hemoglobin/Blood ,Ur Negative Negative, Trace 10/29/2024 9:[address] [facility] pH, Urine 8.0 5.0 - 8.0 10/29/2024 9:[address] [facility] Protein, Urine 1+(A) Trace, Negative 10/29/2024 9:[address] [facility] Urobilinogen 2+(A) Normal 10/29/2024 9:[address] [facility] Nitrites Negative Negative 10/29/2024 9:[address] [facility] Leuk Esterase Negative Negative, 25 Renzo/uL 10/29/2024 9:[address] [facility] WBC, Urine 6-10 /HPF(A) 0-5 /HPF 10/29/2024 9:[address] [facility] RBC, Urine 3-5 /HPF(A) 0-3 /HPF 10/29/2024 9:[address] [facility] Bacteria Rare(A) None Seen /HPF 10/29/2024 9:[address] [facility] Squamous Epithelial Cells Few /HPF 10/29/2024 9:[address] [facility] Urine MID-STREAM URINE SPECIMEN / Unknown Non Blood / Unknown 10/29/2024 8:53 PM EDT 10/29/2024 9:23 PM EDT Milan Salinas DO LABORATORY Final Re sult Performing Organization Address [facility] Co de Phone Number [facility] [address] [place] [address], * COVID & INFLUENZA A/B & RSV PCR, EXPEDITED (10/29/2024 8:45 PM EDT) [facility] SARS-CoV-2 (Agent of COVID-19) RNA Not detected See comment [employer] COVID19 10/29/2024 9:[address] [facility] Influenza A RNA Not detected Not Detected CEPHEID [employer] COVID19 10/29/2024 9:[address] [facility] Influenza B RNA Not detected Not Detected CEPHEID [employer]EXP[employer] COVID19 10/29/2024 9:[address] [facility] Respiratory syncytial virus (RSV) RNA Not detected Not Detected CEPID GENEXPERT COVID19 10/29/2024 9:[address] [facility] Swab NASOPHARYNGEAL SWAB / Unknown Non Blood / Unknown 10/29/2024 8:45 PM EDT 10/29/2024 8:51 [address]ative [facility] - 10/29/2024 9:34 PM EDT Reference Range (the expected result in uninfected individuals): Not detected Milan Salinas DO MICROBIOLOGY Final Re sult Performing Organization Address [facility] Co de Phone Number [facility] [address] [place] [address], * SEPSIS LACTATE W/ REFLEX (INITIAL) (10/29/2024 8:40 PM EDT) [facility] Sepsis Lactate 1.7 <=2.0 mmol/L 10/29/2024 8:[address] [facility] Blood BLOOD SPECIMEN / Unknown Venipuncture / Unknown 10/29/2024 8:40 PM EDT 10/29/2024 8:51 PM EDT us Milan Salinas DO LABORATORY Final Re sult [facility] [address] [place] [address], * (ABNORMAL) COMPLETE BLOOD COUNT AND DIFFERENTIAL (10/29/2024 8:40 PM EDT) WBC 9.44 3.70 - 11.00 k/uL 10/29/2024 9:[address] [facility] RBC 2.85(L) 3.90 - 5.20 m/uL 10/29/2024 9:[address] [facility] Hemoglobin 11.3(L) 11.5 - 15.5 g/dL 10/29/2024 9:[address] [facility] Hematocrit 30.6(L) 36.0 - 46.0 % 10/29/2024 9:[address] [facility] MCV 107.4(H) 80.0 - 100.0 fL 10/29/2024 9:[address] [facility] MCH 39.6(H) 26.0 - 34.0 pg 10/29/2024 9:[address] [facility] MCHC 36.9(H) 30.5 - 36.0 g/dL 10/29/2024 9:[address] [facility] RDW-CV 15.7(H) 11.5 - 15.0 % 10/29/2024 9:[address] [facility] Platelet Count 140(L) 150 - 400 k/uL 10/29/2024 9:[address] [facility] Comment:No clot detected. MPV 9.1 9.0 - 12.7 fL 10/29/2024 9:[address] [facility] Neutrophils % 91.5 % 10/29/2024 9:[address] [facility] Abs Neut 8.64(H) 1.45 - 7.50 k/uL 10/29/2024 9:[address] [facility] Lymphocytes % 1.4 % 10/29/2024 9:[address] [facility] Abs Lymph 0.13(L) 1.00 - 4.00 k/uL 10/29/2024 9:[address] [facility] Monocytes % 6.4 % 10/29/2024 9:[address] [facility] Abs [place] 0.60 <0.87 k/uL 10/29/2024 9:[address] [facility] Eosinophils % 0.0 % 10/29/2024 9:[address] [facility] Abs Eosin <0.03 <0.46 k/uL 10/29/2024 9:[address] [facility] Basophils % 0.2 % 10/29/2024 9:[address] [facility] Abs Baso <0.03 <0.11 k/uL 10/29/2024 9:[address] [facility] Immature Granulocytes % 0.5 % 10/29/2024 9:[address] [facility] Abs Immature Gran 0.05 <0.10 k/uL 10/29/2024 9:[address] [facility] NRBC 0.3 /100 WBC 10/29/2024 9:[address] [facility] Absolute nRBC 0.03(H) <0.01 k/uL 10/29/2024 9:[address] [facility] Diff Type Auto 10/29/2024 9:[address] [facility] Blood BLOOD SPECIMEN / Unknown Venipuncture / Unknown 10/29/2024 8:40 PM EDT 10/29/2024 8:51 PM EDT Milan Salinas DO LABORATORY Final Re sult [facility] [address] * (ABNORMAL) MAGNESIUM (10/29/2024 8:40 PM EDT) Magnesium 1.6(L) 1.7 - 2.3 mg/dL 10/29/2024 9:[address] [facility] Blood BLOOD SPECIMEN / Unknown Venipuncture / Unknown 10/29/2024 8:40 PM EDT 10/29/2024 8:51 PM EDT Christopher P Salinas DO LABORATORY Final Re sult [facility] [address] [place] [address], * (ABNORMAL) COMPREHENSIVE METABOLIC PANEL (10/29/2024 8:40 PM EDT) Protein, Total 6.2(L) 6.3 - 8.0 g/dL 10/29/2024 9:[address] [facility] Albumin 4.0 3.9 - 4.9 g/dL 10/29/2024 9:[address] [facility] Calcium, Total 8.7 8.5 - 10.2 mg/dL 10/29/2024 9:[address] [facility] Bilirubin, Total 6.2(H) 0.2 - 1.3 mg/dL 10/29/2024 9:[address] [facility] Alkaline Phosphatase 100 34 - 123 U/L 10/29/2024 9:[address] [facility] AST 167(H) 13 - 35 U/L 10/29/2024 9:[address] [facility] ALT 127(H) 7 - 38 U/L 10/29/2024 9:[address] [facility] Glucose 124(H) 74 - 99 mg/dL 10/29/2024 9:[address] [facility] Comment: The [place] Diabetes Association (ADA) provides guidance for cutoff values for fasting glucose and random glucose. The ADA defines fasting as no caloric intake for at least 8 hours. Fasting plasma glucose results between 100 to 125 mg/dL indicate increased risk for diabetes (prediabetes). Fasting plasma glucose results greater than or equal to 126 mg/dL meet the criteria for diagnosis of diabetes. In the absence of unequivocal hyperglycemia, results should be confirmed by repeat testing. In a patient with classic symptoms of hyperglycemia or hyperglycemic crisis, random plasma glucose results greater than or equal to 200 mg/dL meet the criteria for diagnosis of diabetes. Reference: Standards of Medical Care in Diabetes 2016, Canadian Diabetes Association. Diabetes Care. 2016.39(Suppl 1). BUN 9 7 - 21 mg/dL 10/29/2024 9:[address] [facility] Creatinine 0.76 0.58 - 0.96 mg/dL 10/29/2024 9:[address] [facility] Sodium 136 136 - 144 mmol/L 10/29/2024 9:[address] [facility] Potassium 3.8 3.7 - 5.1 mmol/L 10/29/2024 9:[address] [facility] Chloride 100 98 - 107 mmol/L 10/29/2024 9:[address] [facility] CO2 21(L) 22 - 30 mmol/L 10/29/2024 9:[address] [facility] Anion Gap 15 8 - 15 mmol/L 10/29/2024 9:[address] [facility] Estimated Glomerular Filtration Rate 85 >=60 mL/min/1. 73m 10/29/2024 9:[address] [facility] Comment:Estimated Glomerular Filtration Rate (eGFR) is calculated using the 2020 CKD-EPI creatinine equation. This equation utilizes serum creatinine, sex, and age as parameters. The creatinine assay has traceable calibration to isotope dilution- mass spectrometry. Refer to KDIGO guidelines for clinical interpretation. In patients with unstable renal function, e.g. those with acute kidney injury, the eGFR may not accurately reflect actual GFR. Blood BLOOD SPECIMEN / Unknown Venipuncture / Unknown 10/29/2024 8:40 PM EDT 10/29/2024 8:51 PM EDT us Milan Salinas DO LABORATORY Final Re sult [facility] [address] [place] [address], [place] * XR CHEST 2V FRONTAL/LAT (10/29/2024 8:23 PM EDT) Anatomical Region Laterality Modality Chest Radiographic Sophie ging 10/29/2024 8:20 PM EDT Impressions 10/29/2024 8:41 PM EDT IMPRESSION: Unremarkable exam with no acute radiographic abnormality. 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 Transcribe Date/Time: Oct 29 2024 8:38P Dictated by : PAOLA ZARAGOZA MD This examination was interpreted and the report reviewed and electronically signed by: PAOLA ZARAGOZA MD on Oct 29 2024 8:38PM EST Narrative 10/29/2024 8:41 PM EDT * * *Final Report* * * DATE OF EXAM: Oct 29 2024 8:20PM [id number] 5291 - XR CHEST 2V FRONTAL/LAT / PROCEDURE REASON: Cough * * * * Physician Interpretation * * * * EXAMINATION: CHEST RADIOGRAPH (2 VIEW FRONTAL & LATERAL) CLINICAL HISTORY: Cough MQ: XC2_6 EXAM DATE/TIME: 10/29/2024 8:20 PM COMPARISON: No relevant prior studies available. RESULT: Lines, tubes, and devices: None. Lungs and pleura: No consolidation. No lung mass. No pleural effusion. No pneumothorax. Cardiomediastinal silhouette: Unremarkable cardiomediastinal silhouette. Bones and soft tissues: Unremarkable. Procedure Note Provider, [facility] [place] - 10/29/2024 * * *Final Report* * * DATE OF EXAM: Oct 29 2024 8:20PM FVX [id number] - XR CHEST 2V FRONTAL/LAT / PROCEDURE REASON: Cough * * * * Physician Interpretation * * * * EXAMINATION: CHEST RADIOGRAPH (2 VIEW FRONTAL & LATERAL) CLINICAL HISTORY: Cough MQ: XC2_6 EXAM DATE/TIME: 10/29/2024 8:20 PM COMPARISON: No relevant prior studies available. RESULT: Lines, tubes, and devices: None. Lungs and pleura: No consolidation. No lung mass. No pleural effusion. No pneumothorax. Cardiomediastinal silhouette: Unremarkable cardiomediastinalsilhouette. Bones and soft tissues: Unremarkable. IMPRESSION IMPRESSION: Unremarkable exam with no acute radiographic abnormality. 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 Transcribe Date/Time: Oct 29 2024 8:38P Dictated by : PAOLA ZARAGOZA MD This examination was interpreted and the report reviewed and electronically signed by: PAOLA ZARAGOZA MD on Oct 29 2024 8:38PM EST Milan BRIGHT Final Re sult documented in this encounter Visit Diagnoses Diagnosis Fever of unknown origin (FUO)- Primary Fever, unspecified Elevated liver enzymes Other nonspecific abnormal serum enzyme levels Elevated bilirubin Jaundice, unspecified, not of documented in this encounter Administered Medications Inactive Administered Medications - up to 3 most recent administrations Medication Order MAR Action Action Date Dose Rate Site amoxicillin-clavulanate potassium 875 mg tab(s) (AUGMENTIN) 875 mg, ORAL, ONCE, 1 dose, On Rosario 10/29/24 at 2330, Antimicrobial indication: Empiric, Infectious source(s): Respiratory, Pharmacist may modify dose per [facility] dose optimization consult agreement: Yes Given 10/29/2024 11:17 PM EDT 875 mg azithromycin 500 mg tab(s) (ZITHROMAX) 500 mg, ORAL, ONCE, 1 dose, On Rosario 10/29/24 at 2330, Antimicrobial indication: Empiric, Infectious source(s): Respiratory, Pharmacist may modify dose per [facility] dose optimization consult agreement: Yes Given 10/29/2024 11:17 PM EDT 500 mg documented in this encounter Active and Recently Administered Medications Times are shown in EDT. Scheduled Medication Order 10/27/2024 10/28/2024 10/29/2024 amoxicillin-clavulanate potassium 875 mg tab(s) (AUGMENTIN) (COMPLETED) 875 mg, ORAL, ONCE, 1 dose, On Rosario 10/29/24 at 2330, Antimicrobial indication: Empiric, Infectious source(s): Respiratory, Pharmacist may modify dose per [facility] dose optimization consult agreement: Yes 2316 (Given - Provid er: Mela Moise RN) azithromycin 500 mg tab(s) (ZITHROMAX) (COMPLETED) 500 mg, ORAL, ONCE, 1 dose, On Rosario 10/29/24 at 2330, Antimicrobial indication: Empiric, Infectious source(s): Respiratory, Pharmacist may modify dose per [facility] dose optimization consult agreement: Yes 2316 (Given - Provid er: Mela Moise RN) documented in this encounter Additional Health Concerns Infection Onset Date Last Indicated Resolved Time COVID-19 Rule-Out 10/29/2024 10/29/2024 10/29/2024 9:34 PM EDT documented as of this encounter Care Teams Television Equipment Operator Relationship Specialty Start Date End Date Kraig Lenz MD [address] [place] [address] PCP - General Family Medicine 11/28/21 Jenn Qureshi RN [address] [place] [address] [place] [address] Specialty Lacquer Shader Hematology/Oncology 05/27/23 Abdirashid Anderson MD [address] [place] [address] [place] [address] Physician Hematology/Oncology 05/27/23 Tamia Martinez APRN.[facility] [address] [place] [address] Nurse Practitioner Hematology/Oncology 05/27/23 documented as of this encounter
--- OUTSIDE RECORDS SUMMARY | 2024-10-30 07:55 | XMS_ITS | Encounter Summary ---
Author Organization [facility] Address [address] [place] [id number] Care Team Providers Care Commercial Sheet Metal Foreman Name Role Phone Kraig Lenz MD Primary Care Provider [phone] Jenn Qureshi RN Unavailable [phone] Abdirashid Anderson MD Unavailable [phone] Tamia Martinez APRN.[employer]OWERTR[employer] CONTROL SYSTEMS ENGINEER Unavailable [phone] Source Comments In the event this information is protected by the Federal Confidentiality of Alcohol and Drug AbusePatient Records regulations: The Federal rules restrict any use of the information to criminally investigate or prosecute any alcohol or drug abuse patient.[facility] Encounter Details Date Type Department Care Team (Latest Contact Info) Description 10/30/2024 7:55 AM EDT Hospital Encounter Radiology [address] [place], [place] [id number] Liver disease [K76.9] Social History Tobacco Use Types Packs/Day Years [...] is lower risk 7 08/31/2022 Data from: https://www.neighborhoodatlas.medicine.[facility]/. Last address used for calculation [address] 08/31/2022 Comments No Sex and Gender Information Value Date Recorded Sex Assigned at Female 01/04/2022 8:03 PM EDT Legal Sex Female 10:12 AM EST Gender Identity Female 01/04/2022 8:03 PM EDT Sexual Orientation Straight 08/30/2022 7: 33 PM EDT documented as of this encounter Functional Status * Are you [...] of Assessment Author No 01/12/2022 10:35 AM KITTYT Yudith Osullivan RN * Do you have [...] Yudith Osullivan RN documented in this encounter Progress Notes * Maddison Mcmanus, RT(R) - 10/30/2024 8:30 AM EDT Radiology Service Progress Note PATIENT NAME: Nicki Valverde DATE OF SERVICE: October 30, 2024 TIME: 8:08 AM PATIENT IDENTITY VERIFICATION COMPLETED USING TWO (2) IDENTIFIERS: Name and Date of confirmedby patient verbally and Name and Date of confirmed by identification band. FALL SCREENING: Has the patient had 2 falls in the last year or 1 fall with injury or currently using an Ambulatory Assistive Device (Walker, Cane, Wheelchair, Crutches, etc.)? No PATIENT GENDER DATA: Assigned female at . status: : No status:NO. PATIENT RELEVANT IMPLANT DATA REVIEWED: Yes PATIENT PRESENTS WITH AN IMPLANTABLE OR ATTACHED INFORMATION CLERK CASHIER: No RADIOLOGY DEPARTMENT: MR; Exam(s) Completed: Body: Liver (routine). Aromatherapy Administered: No PERIPHERAL IV DATA: Site assessment: Clean,Dry and Intact, Site disposition Discontinued SIGNED BY: RT Tashi(R) October 30, 2024 8:08 AM documented in this encounter Nursing Notes * Davey Teran RN - 10/30/2024 8:30 AM EDT Radiology Service Progress Note DATE OF SERVICE: October 30, 2024 TIME: 8:30 AM PATIENT WEIGHT: 181 LBS PATIENT IDENTITY VERIFICATION COMPLETED USING TWO (2) STANDARD IDENTIFIERS: Name and Date of confirmed by patient verbally and Name and Date of confirmed by identification band. FALL SCREENING: Has the patient had 2 falls in the last year or 1 fall with injury or currently using an Ambulatory Assistive Device (Walker, Cane, Wheelchair, Crutches, etc.)? No PATIENT GENDER DATA: Assigned female at . status: : No status: NO. ALLERGIES: Reviewed and unchanged CONTRAST ALLERGY: No EXAM: MRI - CONTRAST TYPE: GROUP II IV SITE: Ambulatory: A peripheral IV was started in the Right antecubital site with a Angio cath/Butterfly: 22 gauge. Diffuiscs by Vega Shay RN IV SITE APPEARANCE: Clean,Dry and Intact SIGNATURE: Davey Teran RN PATIENT NAME: Nicki Valverde DATE: October 30, 2024 TIME: 8:30 AM documented in this encounter Plan of Treatment Upcoming Encounters Date Type Department Care Team (Latest Contact Info) Description 11/05/2024 11:40 AM EDT [facility] Hematology/Oncology [address] [place] [address] Abdirashid Anderson MD [address] [place] [address] Harmon 11/10/2024 11:30 AM EDT Office Visit General Surgery [address] [place], [place] [id number] [place] [address] [place] [address] New; increase liver lesion size - ref by Dr. Anderson *schedule on documented as of this encounter Procedures Procedure Name Priority Date/Time Associated Diagnosis Comments MRI LIVER (EOVIST) WO/W IVCON Routine 10/30/2024 9:18 AM EDT Liver disease documented in this encounter Results * MRI LIVER (EOVIST) WO/W IVCON (10/30/2024 9:18 AM EDT) Anatomical Region Laterality Modality Abdomen Magnetic Resonan ce 10/30/2024 9:18 AM EDT Impressions 10/30/2024 10:54 AM EDT IMPRESSION: 1.7 cm solitary metastasis in segment 2 just medial to the ablation zone. 0.5 cm treated metastasis in segment 6 without viable tumor. Hepatic steatosis. Speech Pathologist: PSCB Transcribe Date/Time: Oct 30 2024 10:22A Dictated by : LINN ASTUDILLO MD This examination was interpreted and the report reviewed and electronically signed by: LINN ASTUDILLO MD on Oct 30 2024 10:52AM EST Narrative 10/30/2024 10:54 AM EDT * * *Final Report* * * DATE OF EXAM: Oct 30 2024 9:18AM [facility] 2175 - MRI LIVER (EOVIST) WO/W IVCON / PROCEDURE REASON: Liver disease * * * * Physician Interpretation * * * * MRI OF THE ABDOMEN WITHOUT AND WITH CONTRAST CLINICAL HISTORY: History of triple negative breast cancer to the liver. * 01/10/2022 - Dr. Ordonez: Diagnostic laparoscopy with lysis of adhesions and intraoperative liver ultrasound with laparoscopic ablation of liver mass * 03/22/2023 - 04/03/2023 - SBRT lesions in left liver / upper. * 03/06/2023 - 03/15/2023 - SBRT lesions in right liver / lower. * 10/01/2024 - CT Liver/Pelvis: 1. ?Interval increase in size of left hepatic lobe hypodensity, now measuring up to 1.6 cm. ?Findings are again suspicious for progression of metastatic disease. ?No new hepatic lesions are identified. COMPARISON: Liver CT 10/01/2024, 02/13/2024, MR Liver 10/17/2023, 01/16/2023, 05/18/2022, 12/19/2021 TECHNIQUE: Magnet: 1.5T scanner. Multiplanar MRI of the abdomen with multiple sequences, including both pre- and post-contrast imaging, utilizing liver protocol Contrast: IV: 8 ml of Elucirem RESULT: Liver: Ablation changes within segment 4A with volume loss and associated posttreatment related intrahepatic biliary ductal dilation and volume loss. 1.7 cm T2 hyperintense peripherally enhancing mass within segment 2 (4:21) slowly enlarging since 05/28/2024 compatible with metastatic disease. 0.5 cm treated metastasis in segment 6 (702:99) without associated enhancement though there is peripheral wedge-shaped enhancement which is posttreatment related. No additional hepatic metastasis. Diffuse signal loss on opposed phase imaging compatible with steatosis. No thrombus in the portal venous system (splenic vein, main portal vein, left and right anterior and right posterior portal vein branches). Spleen: No focal splenic lesions. Spleen is normal in size. Pancreas: Pancreas is normal in precontrast T1 signal intensity with no solid masses or main pancreatic duct dilatation. Biliary: No intrahepatic or extrahepatic biliary ductal dilation. Gallbladder: Status post cholecystectomy. Kidneys: Kidneys enhance symmetrically without hydroureteronephrosis or enhancing renal masses. Bilateral parapelvic cysts. Adrenal glands: Adrenal glands are normal. Lymph nodes: No lymphadenopathy by size criteria. Mesentery: No ascites. Osseous structures: No aggressive osseous lesions. Procedure Note Provider, [facility] [place] - 10/30/2024 * * *Final Report* * * DATE OF EXAM: Oct 30 2024 9:18AM [facility] 2175 - MRI LIVER (EOVIST) WO/W IVCON / PROCEDURE REASON: Liver disease * * * * Physician Interpretation * * * * MRI OF THE ABDOMEN WITHOUT AND WITH CONTRAST CLINICAL HISTORY: History of triple negative breast cancer to the liver. * 01/10/2022 - Dr. Ordonez: Diagnostic laparoscopy with lysis of adhesions and intraoperative liver ultrasound with laparoscopic ablation of liver mass * 03/22/2023 - 04/03/2023 - SBRT lesions in left liver / upper. * 03/06/2023 - 03/15/2023 - SBRT lesions in right liver / lower. * 10/01/2024 - CT Liver/Pelvis: 1. ?Interval increase in size of left hepatic lobe hypodensity, now measuring up to 1.6 cm. ?Findings are again suspicious for progression of metastatic disease. ?No new hepatic lesions are identified. COMPARISON: Liver CT 10/01/2024, 02/13/2024, MR Liver 10/17/2023, 01/16/2023, 05/18/2022, 12/19/2021 TECHNIQUE: Magnet: 1.5T scanner. Multiplanar MRI of the abdomen with multiple sequences, including both pre- and post-contrast imaging, utilizing liver protocol Contrast: IV: 8 ml of Elucirem RESULT: Liver: Ablation changes within segment 4A with volume loss and associated posttreatment related intrahepatic biliary ductal dilation and volume loss. 1.7 cm T2 hyperintense peripherally enhancing mass within segment 2 (4:21) slowly enlarging since 05/28/2024 compatible with metastatic disease. 0.5 cm treated metastasis in segment 6 (702:99) without associated enhancement though there is peripheral wedge-shaped enhancement which is posttreatment related. No additional hepatic metastasis. Diffuse signal loss on opposed phase imaging compatible with steatosis. No thrombus in the portal venous system (splenic vein, main portal vein, left and right anterior and right posterior portal vein branches). Spleen: No focal splenic lesions. Spleen is normal in size. Pancreas: Pancreas is normal in precontrast T1 signal intensity with no solid masses or main pancreatic duct dilatation. Biliary: No intrahepatic or extrahepatic biliary ductal dilation. Gallbladder: Status post cholecystectomy. Kidneys: Kidneys enhance symmetrically without hydroureteronephrosis or enhancing renal masses. Bilateral parapelvic cysts. Adrenal glands: Adrenal glands are normal. Lymph nodes: No lymphadenopathy by size criteria. Mesentery: No ascites. Osseous structures: No aggressive osseous lesions. IMPRESSION IMPRESSION: 1.7 cm solitary metastasis in segment 2 just medial to the ablationzone. 0.5 cm treated metastasis in segment 6 without viable tumor. Hepatic steatosis. Speech Pathologist: PSCB Transcribe Date/Time: Oct 30 2024 10:22A Dictated by : LINN ASTUDILLO MD This examination was interpreted and the report reviewed and electronically signed by: LINN ASTUDILLO MD on Oct 30 2024 10:52AM EST Abdirashid Anderson MD [facility] Final Result documented in this encounter Visit Diagnoses Diagnosis Liver disease Unspecified disorder of liver documented in this encounter Care Teams Commercial Sheet Metal Foreman Relationship Specialty Start Date End Date Kraig Lenz MD [address] [place] [address] PCP - General Family Medicine 11/28/21 Jenn Qureshi, CHRISTOPHER [address] [place] [address] Specialty Line Installer Trolley Hematology/Oncology 05/27/23 Abdirashid Anderson MD [address] [facility] [facility] [place] [address] Physician Hematology/Oncology 05/27/23 Tamia Martinez APRN.POWERTRAIN CONTROL SYSTEMS ENGINEER [address] [facility] [place] [address] Nurse Practitioner Hematology/Oncology 05/27/23 documented as of this encounter
[2024-10-30 17:47] VITALS: BP 148/60; PULSE 114; TEMP 39.4; O2SAT 95; BMI 34.3
--- OUTSIDE RECORDS SUMMARY | 2024-10-30 17:53 | XMS_ITS | Encounter Summary ---
Author Organization [facility] tem Address [id number] [address] [place] [address] Care Team Providers Care Breaker Machine Tender Name Role Phone Kraig Lenz MD Primary Care Provider [phone] Encounter Details Date Type Department Care Team (Late st Contact Info) Description 11/02/2021 Telephone [facility] - CT Imaging [address] [place] [phone] Antonia Espinoza, RN Social History Tobacco Use Types Packs/Day Years Used Date Smoking Tobacco: Former Cigarettes 1 15 0 12/10/1980 - 12/11/1995 Smokeless Tobacco: Never Alcohol Use Standard Drinks/Week Comments No 0 (1 standard drink = 0.6 oz pur e alcohol) PHQ-2 Answer Date Recorded Total Score 0 01/04/2020 Childcare Answer Date Recorded Childcare Unknown 09/03/2018 Employment Answer Date Recorded Employment Unknown 09/03/2018 Purpose - Life Answer Date Recorded Purpose and direction in life Unknown Comments No Sex and Gender Information Value Date Recorded Sex Assigned at Female 12/24/2019 7:02 AM EDT Legal Sex Female 11:39 AM EDT Gender Identity Female 12/24/2019 7:02 AM EDT Sexual Orientation Straight 12/24/2019 7: 02 AM EDT COVID-19 Exposure Response Date Recorded In the last month, have you been in contact with someone who was confirmed or suspected to have Coronavirus / COVID-19? No / Unsure 10/26/2021 1:53 PM EDT documented as of this encounter Plan of Treatment Not on file documented as of this encounter Goals Goal Patient Goal Type Associated Problems Recent Progress Patient-Stated? Author home General Yes Yulia Redding, RN Note: Evaluation of progress towards goal: PT/OT consulted for discharge recommendations. Patient may need Home Health Care vs Long-Term Facility documented as of this encounter Visit Diagnoses Not on filedocumented in this encounter Additional Health Concerns Assessment Noted Time PHQ-9 Depression Total Score: 0 01/04/20 20 1:35 PM EDT documented as of this encounter Care Teams Breaker Machine Tender Relationship Specialty Start Date End Date Kraig Lenz MD PCP - General Family Medicine 09/16/19 documented as of this encounter
--- OUTSIDE RECORDS SUMMARY | 2024-10-30 17:53 | XMS_ITS | Encounter Summary ---
Author Organization [facility] Address [id number] [address] [place] [address] Care Team Providers Care Childbirth Educator Name Role Phone Kraig Lenz MD Primary Care Provider [phone] Encounter Details Date Type Department Care Team (Late st Contact Info) Description 08/16/2020 Orders Only [facility] [address] [place] [id number] Nicole Alejo CMA Personal history of malignant neoplasm of breast (Primary Dx) Social History Tobacco Use Types Packs/Day Years Used Date Smoking Tobacco: Former Cigarettes 1 2 0 12/10/1993 - 12/11/1995 Smokeless Tobacco: Never Alcohol Use [...] have Coronavirus / COVID-19? No / Unsure 08/19/2020 12:56 PM EDT documented as of this encounter Plan of Treatment Scheduled Orders Name Type Priority Associated Diagnoses Orde r Schedule Ultrasound breast limited left Imaging Routine Personal history of malignant neoplasm of breast Expected: 08/16/2020, Expires: 08/16/2021 documented as of this encounter Visit Diagnoses Diagnosis Personal history of malignant neoplasm of breast- Primary documented in this encounter Additional Health Concerns Infection Onset Date Last Indicated Resolved Time Enteric Rule-Out 12/28/2020 12/28/2020 12/28/2020 10:49 PM EDT COVID-19 Rule-Out 02/06/2021 02/06/2021 02/06/2021 10:23 PM EST Assessment Noted Time PHQ-9 Depression Total Score: 0 01/04/20 20 1:35 PM EDT documented as of this encounter Care Teams Childbirth Educator Relationship Specialty Start Date End Date Kraig Lenz MD PCP - General Family Medicine 09/16/19 documented as of this encounter
--- OUTSIDE RECORDS SUMMARY | 2024-10-30 17:53 | XMS_ITS | Encounter Summary ---
Author Organization Address [address] [place] [address] Care Team Providers Care Bander And Cellophaner Helper Machine Name Role Phone Kraig Lenz MD Primary Care Provider + Jenn Qureshi RN Unavailable [phone] Abdirashid Anderson MD Unavailable [phone] Tamia Martinez SAFE AND VAULT INSTALLER.WELFARE SUPERVISOR Unavailable [phone] Source Comments In the event this information is protected by the Federal Confidentiality of Alcohol and Drug AbusePatient Records regulations: The Federal rules restrict any use of the information to criminally investigate or prosecute any alcohol or drug abuse patient. Reason for Visit * Reason Comments Refill Request Encounter Details Date Type Department Care Team (Late st Contact Info) Description 04/05/2024 Refill Hematology/Oncology [address] [facility] [address] Rachana Baer APRN.WELFARE SUPERVISOR [address] [facility] [place] [address] Refill Request Social History Tobacco Use Types Packs/Day Years [...] is lower risk 7 08/31/2022 Data from: https://www.neighborhoodatlas.medicine.[facility]/. Last address used for calculation 6[address] [...] Yudith Carreon RN * Do you have serious difficulty [...] Yudith Carreon RN documented in this encounter Plan of Treatment Upcoming Encounters Date Type Department Care Team (Latest Contact Info) Description 11/05/2024 11:40 AM EDT [facility] Hematology/Oncology [address] [facility] [place] [address] Abdirashid Anderson MD [address] [facility] [place] [address] Harmon 11/10/2024 11:30 AM EDT Office Visit General Surgery [address] [facility] [address] [place] [address] [place] [address] [facility] [address] [place] [address] New; increase liver lesion size - ref by Dr. Anderson *schedule on documented as of this encounter Visit Diagnoses Not on filedocumented in this encounter Additional Health Concerns Infection Onset Date Last Indicated Resolved Time COVID-19 Rule-Out 10/29/2024 10/29/2024 10/29/2024 9:34 PM EDT documented as of this encounter Care Teams Bander And Cellophaner Helper Machine Relationship Specialty Start Date End Date Kraig Lenz MD [address] [place] [address] PCP - General Family Medicine 11/28/21 Jenn Qureshi, CHRISTOPHER [address] [facility] [place] [address] Specialty Dimethylaniline Sulfator Operator Hematology/Oncology 05/27/23 Abdirashid Anderson MD [address] [facility] [place] [address] Physician Hematology/Oncology 05/27/23 Tamia Martinez APRN.WELFARE SUPERVISOR [address] [place] [address] [place] [address] Nurse Practitioner Hematology/Oncology 05/27/23 documented as of this encounter
--- OUTSIDE RECORDS SUMMARY | 2024-10-30 17:53 | XMS_ITS | Encounter Summary ---
Author Organization [facility] tem Address [id number] [address] [place] [address] Care Team Providers Care Store Coordinator Name Role Phone Kraig Lenz MD Primary Care Provider [phone] Encounter Details Date Type Department Care Team (Late st Contact Info) Description 01/08/2020 Orders Only [facility] - Medical Oncology [address] [place] [address] Trae Nicholas, DO [address] [place] [address], [address] [place] [address] Social History Tobacco Use Types Packs/Day Years Used Date Smoking Tobacco: Former Cigarettes 1 2 0 12/10/1993 - 12/11/1995 Smokeless Tobacco: Never Alcohol Use Standard Drinks/Week Comments No 0 (1 standard drink = 0.6 oz pur e alcohol) PHQ-2 Answer Date Recorded Total Score 0 01/04/2020 Childcare Answer Date Recorded Childcare Unknown 09/03/2018 Employment Answer Date Recorded Employment Unknown 09/03/2018 Comments No Sex and Gender Information Value [...] have Coronavirus / COVID-19? No / Unsure 01/11/2020 1:11 PM EDT documented as of this encounter Plan of Treatment Not on file documented as of this encounter Procedures Procedure Name Priority Date/Time Associated Diagnosis Comments BETA GLOBIN FULL GENE SEQ Routine 12/24/2019 documented in this encounter Results * Unlisted Genetic Test (12/24/2019) Trae Nicholas DO LAB BLOOD ORDERABLES Final Resu lt documented in this encounter Visit Diagnoses Not on filedocumented in this encounter Additional Health Concerns Infection Onset Date Last Indicated Resolved Time Enteric Rule-Out 12/28/2020 12/28/2020 12/28/2020 10:49 PM EDT COVID-19 Rule-Out 02/06/2021 02/06/2021 02/06/2021 10:23 PM EST Assessment Noted Time PHQ-9 Depression Total Score: 0 01/04/20 20 1:35 PM EDT documented as of this encounter Care Teams Store Coordinator Relationship Specialty Start Date End Date Kraig Lenz MD PCP - General Family Medicine 09/16/19 documented as of this encounter
--- OUTSIDE RECORDS SUMMARY | 2024-10-30 17:53 | XMS_ITS | Encounter Summary ---
Author Organization [facility] Address [address] [place] [address] Care Team Providers Care Experimental Mechanic Spacecraft Name Role Phone Kraig Lenz MD Primary Care Provider + Jenn Qureshi RN Unavailable [phone] Abdirashid Anderson MD Unavailable [phone] Tamia Martinez APRN.POST PARTUM NURSE Unavailable [phone] Source Comments In the event this information is protected by the Federal Confidentiality of Alcohol and Drug AbusePatient Records regulations: The Federal rules restrict any use of the information to criminally investigate or prosecute any alcohol or drug abuse patient.[facility] Reason for Visit * Reason Comments Refill Request Encounter Details Date Type Department Care Team (Late st Contact Info) Description 06/03/2024 Refill Hematology/Oncology [address] [facility] [address] Christal Vega PA-C [address] [facility] [place] [address] Refill Request Social History Tobacco Use [...] is lower risk 7 08/31/2022 Data from: https://www.neighborhoodatlas.medicine.[facility]/. Last address used for calculation [address] [...] Yudith Carreon RN documented in this encounter Miscellaneous Notes * Telephone Encounter - Christal Vega PA-C - 06/03/2024 11:37 AM EDT The following approved medication requests have been transmitted electronically. Requested Prescriptions Signed Prescriptions Disp Refills ondansetron (ZOFRAN) 8 mg tablet 90 tablet 1 Sig: TAKE 1 TABLET BY MOUTH EVERY 8 HOURS NEEDED FOR NAUSEA AND VOMITING Authorizing Provider: CHRISTAL VEGA PA-C documented in this encounter Plan of Treatment Upcoming Encounters Date Type Department Care Team (Latest Contact Info) Description 11/05/2024 11:40 AM EDT [facility] Hematology/Oncology [address] [place] [address] [place] [address] Abdirashid Anderson MD [address] [place] [address] [place] [address] Harmon 11/10/2024 11:30 AM EDT Office Visit General Surgery [address] [facility] [address] [place], [place] [id number] [place] [address] [facility] [address] [place] [address] New; increase liver lesion size - ref by Dr. Anderson *schedule on documented as of this encounter Visit Diagnoses Not on filedocumented in this encounter Additional Health Concerns Infection Onset Date Last Indicated Resolved Time COVID-19 Rule-Out 10/29/2024 10/29/2024 10/29/2024 9:34 PM EDT documented as of this encounter Care Teams Experimental Mechanic Spacecraft Relationship Specialty Start Date End Date Kraig Lenz MD [address] [place] [address] PCP - General Family Medicine 11/28/21 Jenn Qureshi RN [address] [place] [address] [place] [address] Specialty Corn Cooker Hematology/Oncology 05/27/23 Abdirashid Anderson MD [address] [facility] [place] [place] [address] Physician Hematology/Oncology 05/27/23 Tamia Martinez APRN.POST PARTUM NURSE [address] [place] [address] Nurse Practitioner Hematology/Oncology 05/27/23 documented as of this encounter
--- OUTSIDE RECORDS SUMMARY | 2024-10-30 17:53 | XMS_ITS | Encounter Summary ---
Author Organization [employer] [facility] tem Address [id number] [address] [place] [address] Care Team Providers Care Wad Blanking Press Adjuster Name Role Phone Kraig Lenz MD Primary Care Provider [phone] Encounter Details Date Type Department Care Team (Late st Contact Info) Description 02/08/2020 Social Work [facility] - Medical Oncology [address] [place] [id number] Clair Gomez LSW Social History Tobacco Use Types Packs/Day Years [...] have Coronavirus / COVID-19? No / Unsure 02/08/2020 12:47 PM EST documented as of this encounter Plan of Treatment Not on file documented as of this encounter Visit Diagnoses Not on filedocumented in this encounter Additional Health Concerns Infection Onset Date Last Indicated Resolved Time Enteric Rule-Out 12/28/2020 12/28/2020 12/28/2020 10:49 PM EDT COVID-19 Rule-Out 02/06/2021 02/06/2021 02/06/2021 10:23 PM EST Assessment Noted Time PHQ-9 Depression Total Score: 0 01/04/20 1:35 PM EDT documented as of this encounter Care Teams Wad Blanking Press Adjuster Relationship Specialty Start Date End Date Kraig Lenz MD PCP - General Family Medicine 09/16/19 documented as of this encounter
--- OUTSIDE RECORDS SUMMARY | 2024-10-30 17:53 | XMS_ITS | Encounter Summary ---
Author Organization [facility] Address [address] [place] [address] Care Team Providers Care Ambulatory Services Representative Name Role Phone Kraig Lenz MD Primary Care Provider + Jenn Qureshi RN Unavailable [phone] Abdirashid Anderson MD Unavailable [phone] Ernst Thompson APRN.EXTRUSION PRESS ADJUSTER Unavailable [phone] Source Comments In the event this information is protected by the Federal Confidentiality of Alcohol and Drug AbusePatient Records regulations: The Federal rules restrict any use of the information to criminally investigate or prosecute any alcohol or drug abuse patient.[facility] Reason for Visit * Reason Onset Date Comments Refill Request 07/02/2024 Encounter Details Date Type Department Care Team (Late st Contact Info) Description 07/02/2024 Refill Hematology/Oncology [address] [place], [place] [address] [address] Abdirashid Anderson MD [facility] [address] [facility] [place] [address] Refill Request Social History Tobacco Use [...] is lower risk 7 08/31/2022 Data from: https://www.neighborhoodatlas.medicine.[facility]/. Last address used for calculation [...] 10:35 AM KITTYT Yudith Osullivan RN * Are you blind or do you have serious difficulty seeing, even when wearing glasses? Answer Date of Assessment Author No 01/12/2022 10:35 AM Yudith Crareon RN * Do you have serious difficulty [...] encounter Miscellaneous Notes * Telephone Encounter - Ernst Thompson APRN.CNP - 07/02/2024 2:56 PM EDT The following approved medication requests have been transmitted electronically. Requested Prescriptions Signed Prescriptions Disp Refills oxyCODONE IR (ROXICODONE) 5 mg immediate release tablet 50 tablet 0 Sig: Take 1 tablet by mouth every 6 hours as needed for pain for up to 13 days. Authorizing Provider: ERNST THOMPSON APRN.CNP * Telephone Encounter - Kary Hayden RN - 07/02/2024 2:21 PM EDT Pt here for b12 and hydration requesting a refill of oxycodone. Last filled in March. documented in this encounter Plan of Treatment Upcoming Encounters Date Type Department Care Team (Latest Contact Info) Description 11/05/2024 11:40 AM EDT [facility] Hematology/Oncology [address] [place] [address] [place] [address] Abdirashid Anderson MD [address] [facility] [address] Harmon 11/10/2024 11:30 AM EDT Office Visit General Surgery [address] [place] [address] [place] [address] [address] [place] [address] New; increase liver lesion size - ref by Dr. Anderson *schedule on documented as of this encounter Visit Diagnoses Diagnosis Breast cancer metastasized to liver, left (HCC) documented in this encounter Additional Health Concerns Infection Onset Date Last Indicated Resolved Time COVID-19 Rule-Out 10/29/2024 10/29/2024 10/29/2024 9:34 PM EDT documented as of this encounter Care Teams Ambulatory Services Representative Relationship Specialty Start Date End Date Kraig Lenz MD [address] [place] [address] PCP - General Family Medicine 11/28/21 Jenn Qureshi, RN [address] [facility] [place] [address] Specialty Jowl Trimmer Hematology/Oncology 05/27/23 Abdirashid Anderson MD [address] [facility] [place] [address] Physician Hematology/Oncology 05/27/23 Ernst Thompson APRN.CNP [address] [facility] [place] [address] Nurse Practitioner Hematology/Oncology 05/27/23 documented as of this encounter
--- OUTSIDE RECORDS SUMMARY | 2024-10-30 17:53 | XMS_ITS | Continuity of Care Document ---
Author [facility] Address [address] [place] [address] Problems Unknown Problems Results Test Result Date/Time Value / Unit Interp. Refere nce Range SARS-COV-2 (COVID19), NAAT[[id number]] Collected: 01/15/2020 06:15 PM Specimen Received: 01/17/2020 06:49 PM Source: [facility] SARS-CoV-2 INTERPRETATION [[id number]] 01/18/2020 03:16 AM Negative See Note SARS-CoV-2 RNA NOT DETECTEDN egative results do not preclude SARS-CoV-2 infection and should notbe used as the sole basis for patient management decisions. Negativeresults must be combined with clinical observations, patient history,and epidemiological information. Optimum specimen types and timingfor peak viral levels during infections caused by SARS-CoV-2 have notbeen determined. Collection of multiple specimens or types ofspecimens may be necessary to detect virus. Improper specimencollection and handling, sequence variability under primers/probes,or organism present below the limit of detection may lead to falsenegative results. Positive and negative predictive values oftesting are highly dependent on prevalence. False negative testresults are more likely when prevalence is high. SOURCE [[id number]] 01/18/2020 03:16 AM NASOPHARYNGEAL Note: Methodology is Elaine C carmita Real-Time RT-PCR. The expected result or reference range is NEGATIVE (Not Detected). For more information regarding COVID-19 testing to include clinicalinformation, methodology detail, intended use, FDA authorization andrecommended fact sheets for patients or healthcare providers, see NewTest Announcement: SARS-CoV-2 (COVID-19) by NAAT at URL below (note,fact sheets are provided by method given in report:https://www.[employer].com/clinicians/client-communications/ Alternatively, see downloadable PDF fact sheet at:https://[email or web address].MysteryD/GICKS-20-DE-PCR Allergies, adverse reactions, alerts No known allergies and adverse reactions Medications No administered medications reported Vital Signs No vital signs reported Social History No smoking Hx information available
--- OUTSIDE RECORDS SUMMARY | 2024-10-30 17:53 | XMS_ITS | Encounter Summary ---
Author Organization [facility] Address [address] [place] [address] Care Team Providers Care Fence Rider Name Role Phone Kraig Lenz MD Primary Care Provider [phone] Jenn Qureshi RN Unavailable [phone] Abdirashid Anderson MD Unavailable [phone] Tamia Martinez APRN.SILVERING APPLICATOR Unavailable [phone] Source Comments In the event this information is protected by the Federal Confidentiality of Alcohol and Drug AbusePatient Records regulations: The Federal rules restrict any use of the information to criminally investigate or prosecute any alcohol or drug abuse patient.[facility] Encounter Details Date Type Department Care Team (Latest Contact Info) Description 11/30/2021 H&P External-NonCCF Provider, External, PADeloresC Do not enter address information under generic External Provider. Social History Tobacco Use Types Packs/Day Years Used Date Smoking Tobacco: Former Cigarettes 1 15 0 12/10/1980 - 12/11/1995 Passive Smoke Exposure: Past Smokeless Tobacco: Never Alcohol Use Standard Drinks/Week Comments No 0 (1 standard drink = 0.6 oz pur e alcohol) Comments Unknown Sex and Gender Information Value Date Recorded Sex Assigned at Female 01/04/2022 8:03 PM EDT Legal Sex Female 10:12 AM EST Gender Identity Female 01/04/2022 8:03 PM EDT Sexual Orientation Straight 08/30/2022 7: 33 PM EDT COVID-19 Exposure Response Date Recorded In the last 10 days, have yo u been in contact with someone who was confirmed or suspected to have Coronavirus/COVID-19? No / Unsure 12/01/2021 10:07 AM EDT documented as of this encounter Plan of Treatment Upcoming Encounters Date Type Department Care Team (Latest Contact Info) Description 11/05/2024 11:40 AM EDT [facility] Hematology/Oncology [address] [place] [address] [place] [address] Abdirashid Anderson MD [address] [place] [address] [place] [address] Harmon 11/10/2024 11:30 AM EDT Office Visit General Surgery [address] [place] [facility] [address] [place] [address] [place] [address] [facility] [place] [facility] [address] [place] [address] New; increase liver lesion size - ref by Dr. Anderson *schedule on documented as of this encounter Visit Diagnoses Not on filedocumented in this encounter Additional Health Concerns Infection Onset Date Last Indicated Resolved Time COVID-19 Rule-Out 01/10/2022 01/10/2022 01/10/2022 9:08 AM EDT COVID-19 Rule-Out 10/29/2024 10/29/2024 10/29/2024 9:34 PM EDT documented as of this encounter Care Teams Fence Rider Relationship Specialty Start Date End Date Kraig Lenz MD [address] [place] [address] PCP - General Family Medicine 11/28/21 Jenn Qureshi, CHRISTOPHER [address] [facility] [place] [address] Specialty Electronic Equipment Maint Tech Hematology/Oncology 05/27/23 Abdirashid Anderson MD [address] [place] [address] Physician Hematology/Oncology 05/27/23 Tamia Martinez APRN.SILVERING APPLICATOR [address] [place] [address] Nurse Practitioner Hematology/Oncology 05/27/23 documented as of this encounter
--- OUTSIDE RECORDS SUMMARY | 2024-10-30 17:53 | XMS_ITS | Encounter Summary ---
Author Organization [facility] Address [address] [place] [address] Care Team Providers Care Environmental Permitting Specialist Name Role Phone Giovanny Serra MD Primary Care Provider [phone] Kraig Lenz MD Primary Care Provider [phone] Jenn Qureshi RN Unavailable [phone] Abdirashid Anderson MD Unavailable [phone] Tamia Martinez APRN.FELLER OPERATOR Unavailable [phone] Source Comments In the event this information is protected by the Federal Confidentiality of Alcohol and Drug AbusePatient Records regulations: The Federal rules restrict any use of the information to criminally investigate or prosecute any alcohol or drug abuse patient.[facility] Encounter Details Date Type Department Care Team (Late st Contact Info) Description 2021 [place] [address] Provider, [facility] Medicare Coverage of Physical Exams Social History Tobacco Use Types Packs/Day Years Used Date Smoking Tobacco: Never Smokeless Tobacco: Never Alcohol Use Standard Drinks/Week [...] [facility] Hematology/Oncology [address] [place] [address] [place] [address] Abdirashid Anderson MD [address] [facility] [place] [place] [address] Harmon 11/10/2024 11:30 AM EDT Office Visit General Surgery [address] [id number] [place] [address] [address] New; increase liver lesion size - ref by Dr. Anderson *schedule on documented as of this encounter Visit Diagnoses Not on filedocumented in this encounter Additional Health Concerns Infection Onset Date Last Indicated Resolved Time COVID-19 Rule-Out 01/10/2022 01/10/2022 01/10/2022 9:08 AM EDT COVID-19 Rule-Out 10/29/2024 10/29/2024 10/29/2024 9:34 PM EDT documented as of this encounter Care Teams Environmental Permitting Specialist Relationship Specialty Start Date End Date Giovanny Serra MD PCP - General Family Medicine 05/10/11 11/27/21 Kraig Lenz MD [address] [place] [address] PCP - General Family Medicine 11/28/21 Jenn Qureshi, CHRISTOPHER [address] [facility] [place] [place] [address] Specialty Scrap Drop Operator Hematology/Oncology 05/27/23 Abdirashid Anderson MD [address] [place] [address] Physician Hematology/Oncology 05/27/23 Tamia Martinez APRN.FELLER OPERATOR [address] [place] [address] Nurse Practitioner Hematology/Oncology 05/27/23 documented as of this encounter
--- OUTSIDE RECORDS SUMMARY | 2024-10-30 17:53 | XMS_ITS | Encounter Summary ---
Author Organization [facility] Address [address] [place] [address] Care Team Providers Care Dry Wall Installer Name Role Phone Kraig Lenz MD Primary Care Provider + Jenn Qureshi RN Unavailable [phone] Abdirashid Anderson MD Unavailable [phone] Tamia Martinez APRN.RN TESTING Unavailable [phone] Source Comments In the event this information is protected by the Federal Confidentiality of Alcohol and Drug AbusePatient Records regulations: The Federal rules restrict any use of the information to criminally investigate or prosecute any alcohol or drug abuse patient.[facility] Reason for Visit * Reason Comments Lab Orders Encounter Details Date Type Department Care Team (Late st Contact Info) Description 06/03/2024 Telephone Hematology/Oncology [facility] [place] [address] Abdirashid Anderson MD [facility] [address] [facility] [place] [address] Lab Orders Social History Tobacco Use Types Packs/Day Years [...] is lower risk 7 08/31/2022 Data from: https://www.neighborhoodatlas.[facility]/. Last address used for calculation [address] [...] encounter Miscellaneous Notes * Telephone Encounter - Kadi Becerra MA - 06/03/2024 3:23 PM EDT Lab orders needed for appointment scheduled 06/04. Kadi Becerra MA documented in this encounter Plan of Treatment Upcoming Encounters Date Type Department Care Team (Latest Contact Info) Description 11/05/2024 11:40 AM EDT [facility] Hematology/Oncology [address] [facility] [place] [address] Abdirashid Anderson MD [address] [place] [address] [place] [address] Harmon 11/10/2024 11:30 AM EDT Office Visit General Surgery [address] [facility] [address] [place], [place] [address] [place] [address] [facility] [address] [place] [address] New; increase liver lesion size - ref by Dr. Anderson *schedule on documented as of this encounter Visit Diagnoses Not on filedocumented in this encounter Additional Health Concerns Infection Onset Date Last Indicated Resolved Time COVID-19 Rule-Out 10/29/2024 10/29/2024 10/29/2024 9:34 PM EDT documented as of this encounter Care Teams Dry Wall Installer Relationship Specialty Start Date End Date Kraig Lenz MD [address] [place] [address] PCP - General Family Medicine 11/28/21 Jenn Qureshi, CHRISTOPHER [address] [place] [address] [place] [address] Specialty Greeter Guest Services Hematology/Oncology 05/27/23 Abdirashid Anderson MD [address] [facility] [place] [address] Physician Hematology/Oncology 05/27/23 Tamia Martinez APRN.[facility] [address] [place] [address] [place] [address] Nurse Practitioner Hematology/Oncology 05/27/23 documented as of this encounter
--- OUTSIDE RECORDS SUMMARY | 2024-10-30 17:53 | XMS_ITS | Encounter Summary ---
Author Organization [facility] Address [address] [place] [id number] Care Team Providers Care School Athletic Director Name Role Phone Kraig Lenz MD Primary Care Provider [phone] Jenn Qureshi RN Unavailable [phone] Abdirashid Anderson MD Unavailable [phone] Tamia Martinez APRN.KILN TESTER Unavailable [phone] Source Comments In the event this information is protected by the Federal Confidentiality of Alcohol and Drug AbusePatient Records regulations: The Federal rules restrict any use of the information to criminally investigate or prosecute any alcohol or drug abuse patient.[facility] Encounter Details Date Type Department Care Team (Late st Contact Info) Description 12/04/2021 Patient Msg Hematology/Oncology [address] [place] [address] Seven Perez, Research Coordinator Genomic testing ordered by Dr. Anderson Social History Tobacco Use Types Packs/Day Years Used Date Smoking Tobacco: Former Cigarettes 1 15 0 12/10/1980 - 12/11/1995 Passive Smoke Exposure: Past Smokeless Tobacco: Never Alcohol Use Standard Drinks/Week Comments No 0 (1 standard drink = 0.6 oz pur e alcohol) Comments No Sex and Gender Information Value [...] 11/05/2024 11:40 AM EDT [facility] Hematology/Oncology [address] [place] [address] Abdirashid Anderson MD [address] [place] [address] Harmon 11/10/2024 11:30 AM EDT Office Visit General [facility] [address] [facility] [address] [place] [address] [place] [address] [address] [facility] [address] [place] [address] New; increase liver lesion size - ref by Dr. Anderson *schedule on 12th documented as of this encounter Visit Diagnoses Not on filedocumented in this encounter Additional Health Concerns Infection Onset Date Last Indicated Resolved Time COVID-19 Rule-Out 01/10/2022 01/10/2022 01/10/2022 9:08 AM EDT COVID-19 Rule-Out 10/29/2024 10/29/2024 10/29/2024 9:34 PM EDT documented as of this encounter Care Teams School Athletic Director Relationship Specialty Start Date End Date Kraig Lenz MD [address] [place] [address] PCP - General Family Medicine 11/28/21 Jenn Qureshi, CHRISTOPHER [address] [place] [address] Specialty Bay Stocker Hematology/Oncology 05/27/23 Abdirashid Anderson MD [address] [place] [address] Physician Hematology/Oncology 05/27/23 Tamia Martinez APRN.KILN TESTER [address] [place] [address] [place] [address] Nurse Practitioner Hematology/Oncology 05/27/23 documented as of this encounter
--- OUTSIDE RECORDS SUMMARY | 2024-10-30 17:54 | XMS_ITS | Encounter Summary ---
Author Organization [facility] Address [address] [place] [address] Care Team Providers Care Strategy Planning Consultant Name Role Phone Kraig Lenz MD Primary Care Provider [phone] Jenn Qureshi RN Unavailable [phone] Abdirashid Anderson MD Unavailable [phone] Tamia Martinez APRN.DISTRICT MANAGER IN TRAINING Unavailable [phone] Source Comments In the event this information is protected by the Federal Confidentiality of Alcohol and Drug AbusePatient Records regulations: The Federal rules restrict any use of the information to criminally investigate or prosecute any alcohol or drug abuse patient.[facility] Encounter Details Date Type Department Care Team (Late st Contact Info) Description 03/16/2022 Patient Msg General Surgery [address] [facility] [address] [place] [id number] [place] [address] [address] [facility] [address] [place] [address] Repeat MRI due Social History Tobacco Use Types Packs/Day Years [...] Recorded In the last 10 days, have ashia wilson been in contact with someone who was confirmed or suspected to have Coronavirus/COVID-19? No / Unsure 02/16/2022 1:32 PM EST documented as of this encounter Functional Status [...] 10:35 AM KITTYT Yudith Osullivan RN * Because of a physical, mental, or emotional condition, do you have difficulty doing errands alone such as visiting a doctor's office or shopping? Answer Date of Assessment Author No 01/12/2022 10:35 AM KITTYT Yudith Osullivan RN documented as of this encounter Mental Status * Because of a physical, mental, or emotional condition, do you have serious difficulty concentrating, remembering, or making decisions? Answer Entry Date Author No 01/12/2022 10:35 AM Yudith Carreon RN documented in this encounter Plan of Treatment Upcoming Encounters Date Type Department Care Team (Latest Contact Info) Description 11/05/2024 11:40 AM EDT [facility] Hematology/Oncology [address] [place] [address] [place] [address] Abdirashid Anderson MD [address] [place] [address] Harmon 11/10/2024 11:30 AM EDT Office Visit General Surgery [address] [facility] [address] [place] [address] [place] [address] [facility] [address] [place] [address] New; increase liver lesion size - ref by Dr. Anderson *schedule on documented as of this encounter Visit Diagnoses Not on filedocumented in this encounter Additional Health Concerns Infection Onset Date Last Indicated Resolved Time COVID-19 Rule-Out 10/29/2024 10/29/2024 10/29/2024 9:34 PM EDT documented as of this encounter Care Teams Strategy Planning Consultant Relationship Specialty Start Date End Date Kraig Lenz MD [address] [place] [address] PCP - General Family Medicine 11/28/21 Jenn Qureshi, RN [address] [place] [address] Specialty Buyer Planner Hematology/Oncology 05/27/23 Abdirashid Anderson MD [address] [place] [address] Physician Hematology/Oncology 05/27/23 Tamia Martinez APRN.DISTRICT MANAGER IN TRAINING [address] [place] [address] Nurse Practitioner Hematology/Oncology 05/27/23 documented as of this encounter
--- OUTSIDE RECORDS SUMMARY | 2024-10-30 17:54 | XMS_ITS | Encounter Summary ---
Author Organization [employer] Address [id number] [address] [place] [address] Care Team Providers Care Senior Network Administrator Name Role Phone Kraig Lenz MD Primary Care Provider [phone] Encounter Details Date Type Department Care Team (Late st Contact Info) Description 02/01/2020 Orders Only Alyssa Chávez Larue [facility] - Medical Oncology [address] [place] [phone] Zaira Mathews, CHRISTOPHER Social History Tobacco Use Types Packs/Day Years [...] have Coronavirus / COVID-19? No / Unsure 02/04/2020 2:17 PM EST documented as of this encounter [...] documented as of this encounter Care Teams Senior Network Administrator Relationship Specialty Start Date End Date Kraig Lenz MD PCP - General Family Medicine 09/16/19 documented as of this encounter
--- OUTSIDE RECORDS SUMMARY | 2024-10-30 17:54 | XMS_ITS | Clinical Summary ---
Author Organization [employer] Address [id number] [address] [place] [address] Care Team Providers Care Senior Interactive Producer Name Role Phone Kraig Lenz MD Primary Care Provider [phone] Allergies Active Allergy Reactions Criticality Noted Date Comments Levofloxacin Anaphylaxis High 09/11/2012 Pravastatin muscle cramps High 12/10/2016 Sulfa (Sulfonamide Antibiotics) Hives,Vomiting High 12/10/2016 Medications aspirin 81 mgIndications: myocardial infarction prevention Take 1 tablet (81 mg total) by mouth in the morning. Indications: treatment to prevent a heart attack. Active levothyroxine (SYNTHROID, LEVOTHROID) 112 MCG tabletIndicati ons:hypothyroi dism Take 150 mcg by mouth in the morning. Indications: a condition with low thyroid hormone levels. Active lansoprazole (PREVACID) 30 mg capsuleIndicat ions:gastroeso phageal reflux disease Take 1 capsule (30 mg total) by mouth in the morning. Indications: gastroesophageal reflux disease. Active melatonin (CIRCADIN) capsule Take 2 capsules (10 mg total) by mouth daily as needed (SLEEP). PER PT OTC Activ e metoprolol tartrate (LOPRESSOR ORAL) Take 25 mg by mouth 2 (two) times a day. 25 Active rosuvastatin (CRESTOR) 5 mg tabletIndicati ons:hyperchole sterolemia Take 1 tablet (5 mg total) by mouth in the morning. Indications: high cholesterol. 021 Active DULoxetine (CYMBALTA) 60 mg capsuleIndicat ions:diabetic peripheral neuropathy Take 1 capsule (60 mg total) by mouth in the morning. Indications: diabetic complication causing injury to some body nerves. Active estradioL (ESTRACE) 0.01 % (0.1 mg/gram) vaginal creamIndicatio ns:Vaginal atrophy Insert 2 g into the vagina daily. For two weeks before bed. 42.5 g Active Additional Information Patient not taking.Reported on 03/14/2022 meloxicam (MOBIC) 7.5 mg tablet Take 7.5 mg by mouth in the morning. Active simethicone (MYLICON) 80 mg chewable tablet Chew 1 tablet (80 mg total) and swallow every 6 (six) hours as needed for flatulence. Active biotin 1 mg tablet Take 1 tablet (1 mg total) by mouth 3 (three) times a day. Active meclizine (ANTIVERT) 25 mg tablet Chew 1 tablet (25 mg total) and swallow 3 (three) times a day as needed for dizziness. Active colestipoL (COLESTID) 1 g tabletIndicati ons:Diarrhea, unspecified type TAKE ONE TABLET BY MOUTH EVERY MORNING AND TAKE ONE TABLET BY MOUTH EVERY NIGHT BEFORE BEDTIME 60 tablet 2 Active Additional Information Patient not taking.Reported on 03/14/2022 predniSONE (DELTASONE) 10 mg tablet Active psyllium (METAMUCIL) 0.52 gram capsuleIndicat ions:Altered bowel habits Take 4 capsules (2.08 g total) by mouth in the morning. 3 capsules twice daily. Total of 6 capsules. . 180 capsule 5 Active Additional Information Patient not taking.Reported on 03/14/2022 loperamide (IMODIUM) 2 mg capsuleIndicat ions:Altered bowel habits TAKE 2 CAPSULES BY MOUTH IN THE MORNING AND 2 CAPSULES AT BEDTIME 120 capsule 6 025 Active loperamide (IMODIUM) 2 mg capsuleIndicat ions:Altered bowel habits TAKE TWO CAPSULES BY MOUTH EVERY MORNING AND TAKE TWO CAPSULES BY MOUTH EVERY NIGHT AT BEDTIME 120 capsule 6 023 2024 Discontinued Active Problems Problem Noted Date Diagnosed Date Liver metastasis 11/22/2021 Overview (12/23/2022): replacing diagnoses that were inactivated after the 12/23 regulatory import Functional diarrhea 08/08/2021 Right lower quadrant pain and bulge 08/08/2021 Bone pain 08/03/2021 Iron deficiency anemia 03/31/2021 Altered bowel habits 01/10/2021 CINV (chemotherapy-induced nausea and vomiting) 01/25/2020 BRCA2 gene mutation positive 01/08/2020 Triple negative malignant neoplasm of breast Cancer Staging:Pathologic stage from 10/30/2019:Stage IIA(pT2, pN0(sn), cM0, G3, ER-, NM-, HER2-) - Signed by Aimee Gardner DO on 01/01/2020 Clinical stage from 12/11/2019:Stage IIB(cT2, cN0, cM0, G3, ER-, NM-, HER2-) - Unsigned Personal history of malignant neoplasm of breast 12/11/2019 Cholecystitis 04/07/2019 Parastomal hernia without obstruction or gangren e 03/24/2019 Resolved Problems Problem Noted Date Diagnosed Date Resolved Date Colostomy status 10/23/2020 08/08/2021 Encounters Date Type Department Care Team Description 10/20/2024 Refill [facility] General [facility] [address] [place] [address] [address] [place] [phone] Kelly Kimball PA Altered bowel habits from Last 3 Months Immunizations Immunization Administration Dates Next Due Hepatitis B 07/17/2001,02/28/2001,01/24/2001 Zoster Live 03/16/2017 Zoster, unspecified formulation 01/23/2017 Family History Medical History Relation Name Comments Alcohol abuse Father Skin cancer Father Liver cancer Half-sibling Agent orange Gallbladder disease Mother Kidney cancer Paternal Aunt 1 Breast cancer Paternal Aunt 2 metastatic Uterine cancer Paternal cousin Anesthesia problems Neg Hx Bleeding Disorder Neg Hx Clotting disorder Neg Hx Colon cancer Neg Hx Heart attack Neg Hx Ovarian cancer Neg Hx Pancreatic cancer Neg Hx Stroke Neg Hx Relation Name Status Comments Father Half-sibling agent orange li cleo cancer Mother Paternal Aunt 1 Paternal Aunt 2 Paternal cousin Son Alive Social History Tobacco Use Types Packs/Day Years Used Date Smoking Tobacco: Former Cigarettes 1 15 0 12/10/1980 - 12/11/1995 Smokeless Tobacco: Never Tobacco Cessation:Counseling Given: Not Answered Alcohol Use Standard Drinks/Week Comments No 0 [...] Orientation Straight 12/24/2019 7: 02 AM EDT Last Filed Vital Signs Vital Sign Reading Time Taken Comments Blood Pressure 141/93 10/04/2022 12:57 PM EDT Pulse 64 10/04/2022 12:57 PM EDT Temperature 36.4 C (97.6 F) 10/04/2022 12:57 PM EDT Respiratory Rate 16 03/14/2022 3:33 PM EST Oxygen Saturation 93% 11/17/2021 11:45 AM EDT Inhaled Oxygen Concentration - - Weight 83.9 kg (185 lb) 10/04/2022 12:57 PM EDT Height 165.1 cm (5' 5 ) 10/04/2022 12:57 PM EDT Body Mass Index 30.79 10/04/2022 12:57 PM EDT Plan of Treatment Health Maintenance Due Date Last Done Comments Depression Screening 1967 Tobacco Screening 1967 DTaP,Tdap and Td Vaccines (1 - Tdap) 07/01/1975 Zoster (Shingles) Vaccine (1 of 2) 05/11/20172016, 01/23/2017 Fall Risk Screening 2021 Adult BMI Screening 10/05/2023 10/04/2022 Influenza Vaccine 11/23/2024 Goals Goal Patient Goal Type Associated Problems Recent Progress Patient-Stated? Author home General Yes Yulia Redding, RN Note: Evaluation of progress towards goal: PT/OT consulted for discharge recommendations. Patient may need Home Health Care vs Halfway Facility Medical Devices Implanted Type Area Power Hammer Operator Device Identifier Shelf Expiration Date Model / Serial / Lot Mesh [id number] Pp Macroporous Parietene Mfl Srg Strl Lf Disp Rpl [id number] - [id number] Implanted:Qty: 1 on 12/01/2020 by Donnie Lucas MD at [facility] Mesh N/A: Abdomen [employer] [place] 04/24/2025 [id number] / / [id number] Mesh [id number] Macroporous Parietene Srg Rpl [id number] - [id number] Implanted:Qty: 1 on 12/01/2020 by Donnie Lucas MD at [facility] Mesh N/A: Abdomen [employer] [place] 04/24/2025 [id number] / / [id number] Port Pp Mri 8fr Chrnflx - Sna - [id number] Implanted:Qty: 1 on 01/18/2020 by Julius Richmond MD at [facility] Port Left: Chest [employer] [facility] 06/22/2021 [id number] / [id number] / [id number] Insurance MEDICARE [facility]URANCE Advance Directives Documents on File Type Date Recorded Patient Straightening Press Operator Expl anation Durable Power of Fashion Director * Full Code (Latest Code Status on File) Date Activated Date Inactivated Comments 12/01/2020 6:32 PM 12/08/2020 7:58 PM * Full Code Date Activated Date Inactivated Comments 03/24/2019 4:34 PM 03/25/2019 1:37 PM Care Teams Senior Interactive Producer Relationship Specialty Start Date End Date Kraig Lenz MD PCP - General Family Medicine 09/16/19
--- OUTSIDE RECORDS SUMMARY | 2024-10-30 17:54 | XMS_ITS | Clinical Summary ---
Author Organization [facility] Address [address] [place] [address] Care Team Providers Care Meter Readers Supervisor Name Role Phone Kraig Lenz MD Primary Care Provider [phone] Jenn Qureshi RN Unavailable [phone] Abdirashid Anderson MD Unavailable [phone] Tamia Martinez ASSISTANT STORE MANAGER OPERATIONS.APPROVER Unavailable [phone] Allergies Active Allergy Reactions Criticality Noted Date Comments Levofloxacin Anaphylaxis High 09/11/2012 Pravastatin Other: See Comments High 12/10/2016 Nisoldipine Vomiting 09/11/2012 Sulfa (Sulfonamide Antibiotics) Hives,Vomiting High 12/10/2016 Medications levothyroxine (SYNTHROID) 175 mcg tablet Take 175 mcg by mouth once daily. 08/18/19 13 Active Aspirin 81 mg Tab Take 81 mg by mouth. Active Biotin 1 mg tab Take 1,000 mcg by mouth. Active DULoxetine (CYMBALTA) 60 mg capsule Take 60 mg by mouth once daily. 11/06/19 21 Active lansoprazole (PREVACID) 30 mg capsule Take 30 mg by mouth once daily. Active loperamide (IMODIUM) 2 mg cap(s) Take 4 mg by mouth. Takes BID 09/23/19 22 Active meloxicam (MOBIC) 7.5 mg tablet Take 7.5 mg by mouth once daily. Active rosuvastatin (CRESTOR) 5 mg tablet Take 5 mg by mouth once daily. 10/15/19 21 Active simethicone, chewable (MYLICON) 80 mg chewable tablet Take 80 mg by mouth every 6 hours as needed. Active cholecalciferol, vitamin D3, 10 mcg (400 unit) cap Take 400 Units by mouth once daily. Active metoprolol tartrate, short acting, (LOPRESSOR) 25 mg tablet Take 25 mg by mouth two times a day. Active tiZANidine (ZANAFLEX) 4 mg tablet Take 8 mg by mouth daily at bedtime. 04/04/19 24 Active prochlorperazine (COMPAZINE) 10 mg tablet Take 1 tablet by mouth every 6 hours as needed. 100 tablet 1 4 3:39 PM EDT 05/29/19 24 Active emollient combo no.59, bulk, (CUSTOM BASE PCCA LIPODERM) crea Apply to affected area. Active olaparib (LYNPARZA) 150 mg tabletIndication s:Breast cancer metastasized to liver, left (HCC),Malignant neoplasm of areola of left breast in female, estrogen receptor negative (HCC) Take 2 tablets (300 mg) by mouth two times a day. 120 tablet 3 06/19/19 25 Active folic acid 1 mg tablet TAKE 1 TABLET BY MOUTH EVERY DAY 90 tablet 3 08/04/19 25 Active ondansetron (ZOFRAN) 8 mg tablet TAKE 1 TABLET BY MOUTH EVERY 8 HOURS NEEDED FOR NAUSEA AND VOMITING 90 tablet 1 09/29/19 25 Active amoxicillin-clav ulanate potassium (AUGMENTIN) 875-125 mg per tablet Take 1 tablet by mouth two times a day for 5 days. 10 tablet 10/30/19 25 025 Active azithromycin (ZITHROMAX) 250 mg tablet Take 2 tablets by mouth once daily for 1 day, THEN 1 tablet once daily for 4 days. 6 tablet 10/30/19 25 025 Active ALPRAZolam (XANAX) 0.25 mg tabletIndication s:Breast cancer metastasized to liver, left (HCC),Megaloblas tic anemia due to vitamin B12 deficiency,Bone pain,Insomnia due to medical condition,Anxiet y neurosis,Cancer associated pain Take 1 tablet by mouth at bedtime as needed for up to 60 days. 30 tablet 1 08/28/19 25 025 iv contrast (will be provided with radiology test) MRI LIVER (EOVIST) Inject, intravenously, once for 1 dose. No IV access, insert saline lock prior to the beginning of sedation, infusion, injection of imaging exam. Discontinue saline lock post exam. If Pt. has a central line or IVAD, may access for administration according to line specific nursing protocol. Once exam is complete flush line and de-access according to line specific nursing protocol in the MR contrast administration guidelines link. 1 each 10/08/19 25 025 Active Problems Problem Noted Date Diagnosed Date Malignant neoplasm of upper- outer quadrant of left breast in female, estrogen receptor negative 02/13/2024 Dehydration 10/24/2023 Megaloblastic anemia due to vitamin B12 deficien cy 08/09/2023 Red blood cell antibody positive 01/15/2022 Overview (01/15/2022): See Blood Bank Report, Antibody Interpretation for details. Breast cancer metastasized to liver, left 2021 Post-operative nausea and vomiting 01/05/2022 Adenocarcinoma of left breast metastatic to live r 09/11/2012 Hyperlipidemia Hypertension GERD (gastroesophageal reflux disease) Hypothyroidism Hx of sleep apnea Resolved Problems Problem Noted Date Diagnosed Date Resolved Date Malignant neoplasm of areola of left breast in female, estrogen receptor negative 03/16/2022 Chronic kidney disease 06/23 Encounters Date Type Department Care Team Description 10/30/2024 7:55 AM EDT Hospital Encounter Radiology [address] [place] [address] Liver disease [K76.9] 10/30/2024 Telephone Hematology/Oncolog y [facility] [place] [address] Rosetta Hawkins, CHRISTOPHER Care Coordination (ER follow up call) 10/29/2024 8:00 PM EDT - 10/29/2024 11:22 PM EDT Emergency [facility] Emergency Dept [address] [id number] Fever, stage 4 cancer Discharge Disposition: Home 10/29/2024 Travel 10/28/2024 1:00 PM EDT Infusion Center Hematology/Oncolog y [facility] [place] [address] Megaloblastic anemia due to vitamin B12 deficiency (Primary Dx); 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); Dehydration 10/21/2024 Orders Only Hematology/Oncolog y [address] [place] [address] Lydia Vega PA-C 10/21/2024 Orders Only Hematology/Oncolog y [address] [place] [address] Tamia Martinez APRN.APPROVER 10/07/2024 1:00 PM EDT Visit (SP) Office Hematology/Oncolog y [address] [place] [address] Abdirashid Anderson MD Liver disease (Primary Dx); Other specified carcinomas of liver (HCC); Secondary malignant neoplasm of liver (HCC); Triple negative malignant neoplasm of breast (HCC); Encounter for antineoplastic chemotherapy 10/07/2024 Telephone Cancer Appts [facility] [place] [address] [place] [address] Abdirashid Anderson MD Future Appointment 10/01/2024 11:45 AM EDT Infusion Center Hematology/Oncolog y [address] [place] [address] 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) (Primary Dx); Dehydration 10/01/2024 11:30 AM EDT Nurse Visit Hematology/Oncolog y [address] [place] [address] Gretchen Monet Nurse Chang Megaloblastic anemia due to vitamin B12 deficiency (Primary Dx) 10/01/2024 9:37 AM EDT - 10/01/2024 11:59 PM EDT Hospital Encounter Radiology [facility] [address] [place] [address] Malignant neoplasm of right breast in female, estrogen receptor positive, unspecified site of breast (HCC) [C50.911, Z17.0] Discharge Disposition: Home 10/01/2024 Travel 09/26/2024 Refill Hematology/Oncolog y [address] [place] [address] Tamia Martinez APRN.APPROVER Refill Request 09/24/2024 Orders Only Hematology/Oncolog y [address] [place] [address] Abdirashid Anderson MD 09/24/2024 Orders Only [facility] [address] [place] [address] Elissa Dennis [facility] 09/23/2024 Orders Only HOSPITAL PHARMACY -[address] [place] [address] Elissa Dennis, [facility] 08/27/2024 3:00 PM EDT Infusion Center Hematology/Oncolog y [address] [place] [address] 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) (Primary Dx); Dehydration 08/27/2024 2:45 PM EDT Nurse Visit Hematology/Oncolog y [address] [place] [address] [place] [address] Gretchen Monet Nurse Chang Megaloblastic anemia due to vitamin B12 deficiency (Primary Dx) 08/27/2024 2:20 PM EDT Visit (SP) Office Hematology/Oncolog y [address] [place] [address] [place] [address] Abdirashid Anderson MD Breast cancer metastasized to liver, left (HCC) (Primary Dx); Megaloblastic anemia due to vitamin B12 deficiency; Bone pain; Insomnia due to medical condition; Anxiety neurosis; Cancer associated pain; Malignant neoplasm of right breast in female, estrogen receptor positive, unspecified site of breast (HCC); Encounter for antineoplastic chemotherapy; Secondary malignant neoplasm of bone (HCC); Arthritis; Anemia due to vitamin B12 deficiency, unspecified B12 deficiency type 08/27/2024 Travel 08/25/2024 Results Follow-Up Hematology/Oncolog y [address] [place] [address] [place] [address] Abdirashid Anderson MD Care Coordination (CT Results) 08/20/2024 12:47 PM EDT - 08/20/2024 11:59 PM EDT Hospital Encounter Radiology Pet CT [address] [facility] [place] [address] Breast cancer metastasized to liver, left (HCC) [C50.912, C78.7] Discharge Disposition: Home 08/02/2024 Refill Hematology/Oncolog y [address] [place] [address] [place] [address] Abdirashid Anderson MD Refill Request 07/30/2024 2:00 PM EDT Infusion Center Hematology/Oncolog y [address] [place] [address] Megaloblastic anemia due to vitamin B12 deficiency (Primary Dx); 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); Dehydration 07/30/2024 Travel from Last 3 Months Immunizations Immunization Administration Dates Next Due hepatitis B (HepB) vaccine, 3-dose series, age 20+ yr (ENGERIX-B, RECOMBIVAX HB) 07/17/2001,02/28/2001,01/24/2001 zoster (ZVL) vaccine, live (ZOSTAVAX) 03/16/2017 zoster vaccine, unspecified formulation 01/24/20 17 Family History Medical History Relation Comments Alcohol abuse Father Liver Cancer Half-brother Gall Stones Mother Kidney stones Paternal Aunt 1 Breast Cancer Paternal Aunt 2 Uterine Cancer Paternal cousin Relation Status Comments Father Half-brother Alive possible agent o range Mother Paternal Aunt 1 Alive Paternal Aunt 2 Alive Paternal cousin Alive Social History Tobacco Use Types Packs/Day Years Used Date Smoking Tobacco: Former Cigarettes 1 15 0 12/10/1980 - 12/11/1995 Passive Smoke Exposure: Past Smokeless Tobacco: Never Tobacco Cessation:Counseling Given: Not Answered Alcohol Use Standard Drinks/Week Comments No 0 (1 standard drink = 0.6 oz pur e alcohol) PHQ-2 Answer Date Recorded PHQ-2 score 0 09/27/2023 Area Deprivation Index Answer Date Jalen rded National Score (1-100), lower number is lower ri sk 81 08/31/2022 State Score (1-10), lower number is lower risk 7 08/31/2022 Data from: https://www.neighborhoodatlas.medicine.[facility].edu/. Last address used for calculation [address] 08/31/2022 Comments No Sex and Gender Information Value Date Recorded Sex Assigned at Female 01/04/2022 8:03 PM EDT Legal Sex Female 10:12 AM EST Gender Identity Female 01/04/2022 8:03 PM EDT Sexual Orientation Straight 08/30/2022 7: 33 PM EDT Last Filed Vital Signs Vital Sign [...] Mass Index 31.07 10/29/2024 7:59 PM EDT Plan of Treatment Upcoming Encounters Date Type Department Care Team (Latest Contact Info) Description 11/05/2024 11:40 AM EDT [facility] Hematology/Oncology [address] [place] [address] [place] [address] Abdirashid Anderson MD [address] [facility] [place] [address] Harmon 11/10/2024 11:30 AM EDT Office Visit General Surgery [address] [place] [address] [place] [address] [facility] [address] [place] [address] New; increase liver lesion size - ref by Dr. Anderson *schedule on Health Maintenance Due Date Last Done Comments Annual PCP Team Chronic Dise ase Visit 1974 Anxiety Screening 1974 Depression Screening 1974 Hepatitis C Screening 1974 DTaP,Tdap,Td Vaccine (1 - Tdap) 07/01/1975 Pneumococcal Vaccine: 50+ (1 of 2 - PCV) 07/01/1975 CT Colonography 2001 Cologuard (FIT-DNA) 2001 Colonoscopy 2001 Fecal Occult Blood 2001 Shingrix Vaccine (1 of 2) 05/11/2017 03/16/2017, 03/2016 Mammogram Screening 10/22/2020 10/23/2019, 09/16/2019, 09/16/2019, Additional history exists Medicare Annual Wellness Visit 06/23/2021 Advance Directive Discussion 03/25/2024 Influenza Vaccine (#1) 2024 Colorectal Cancer Screening 12/01/2025 Sigmoidoscopy 12/01/2025 12/01/2020 Diabetes Screening 10/30/2027 10/29/2024, 0 10/01/2024, 08/20/2024, Additional history exists Lipid Screening 04/08/2028 04/08/2023, 05/09/2022, 08/28/2019 RSV Vaccine (1 - 1-dose 75+ series) 07/01/2031 Bone Density Screening Completed 11/05/2016 Procedures Procedure Name Priority Date/Time Associated Diagnosis Comments MRI LIVER (EOVIST) WO/W IVCON Routine 10/30/2024 9:18 AM EDT Liver disease URINALYSIS (WITH MICROSCOPIC) WITH CULTURE IF INDICATED STAT 10/29/2024 8:53 PM EDT COVID & INFLUENZA A/B & RSV PCR, EXPEDITED STAT 10/29/2024 8:45 PM EDT BACTERIAL CULTURE, BLOOD STAT 10/29/2024 8:44 PM EDT BACTERIAL CULTURE, BLOOD STAT 10/29/2024 8:40 PM EDT SEPSIS LACTATE W/ REFLEX (INITIAL) STAT 10/29/2024 8:40 PM EDT CBC + DIFF STAT 10/29/2024 8:40 PM EDT MAGNESIUM BLD STAT 10/29/2024 8:40 PM EDT COMPREHENSIVE METABOLIC PANEL STAT 10/29/2024 8:40 PM EDT XR CHEST 2V FRONTAL/LAT STAT 10/29/2024 8:[address] LIVER/PELVIS W IVCON Routine 10/01/2024 11:10 AM EDT Malignant neoplasm of right breast in female, estrogen receptor positive, unspecified site of breast (HCC) CBC + DIFF Routine 10/01/2024 9:39 AM EDT Breast cancer metastasized to liver, left (HCC) Megaloblastic anemia due to vitamin B12 deficiency COMPREHENSIVE METABOLIC PANEL Routine 10/01/2024 9:39 AM EDT Breast cancer metastasized to liver, left (HCC) Megaloblastic anemia due to vitamin B12 deficiency IRON + TIBC Routine 10/01/2024 9:39 AM EDT Breast cancer metastasized to liver, left (HCC) Megaloblastic anemia due to vitamin B12 deficiency FERRITIN BLD Routine 10/01/2024 9:39 AM EDT Breast cancer metastasized to liver, left (HCC) Megaloblastic anemia due to vitamin B12 deficiency VITAMIN B12 BLOOD Routine 10/01/2024 9:3 9 AM EDT Breast cancer metastasized to liver, left (HCC) Megaloblastic anemia due to vitamin B12 deficiency FOLATE SERUM Routine 10/01/2024 9:39 AM EDT Breast cancer metastasized to liver, left (HCC) Megaloblastic anemia due to vitamin B12 deficiency CA 15-3 BLD Routine 10/01/2024 9:39 AM EDT Breast cancer metastasized to liver, left (HCC) CT LIVER/PELVIS W IVCON Routine 08/20/2024 2:05 PM EDT Breast cancer metastasized to liver, left (HCC) Malignant neoplasm of left breast in female, estrogen receptor negative, unspecified site of breast (HCC) CT CHEST W IVCON Routine 08/20/2024 2:05 PM EDT Breast cancer metastasized to liver, left (HCC) Malignant neoplasm of left breast in female, estrogen receptor negative, unspecified site of breast (HCC) COMPREHENSIVE METABOLIC PANEL Routine 08/20/2024 12:51 PM EDT Breast cancer metastasized to liver, left (HCC) CBC + DIFF Routine 08/20/2024 12:51 PM EDT Breast cancer metastasized to liver, left (HCC) CA 15-3 BLD Routine 08/20/2024 12:51 PM EDT Breast cancer metastasized to liver, left (HCC) from Last 3 Months Results * MRI LIVER (EOVIST) WO/W IVCON (10/30/2024 9:18 AM EDT) Anatomical Region Laterality Modality Abdomen Magnetic Resonan ce 10/30/2024 9:18 AM EDT Impressions 10/30/2024 10:54 AM EDT IMPRESSION: 1.7 cm solitary metastasis in segment 2 just medial to the ablation zone. 0.5 cm treated metastasis in segment 6 without viable tumor. Hepatic steatosis. Torts Law Professor: [facility] Transcribe Date/Time: Oct 30 2024 10:22A Dictated by : LINN ASTUDILLO MD This examination was interpreted and the report reviewed and electronically signed by: LINN ASTUDILLO MD on Oct 30 2024 10:52AM EST Narrative 10/30/2024 10:54 AM EDT * * *Final Report* * * DATE OF EXAM: Oct 30 2024 9:18AM [facility] 2175 - MRI LIVER (EOVIST) WO/W [...] No aggressive osseous lesions. Procedure Note Provider, [facility] - 10/30/2024 * * *Final Report* * * DATE OF EXAM: Oct 30 2024 9:18AM [facility] 2175 - MRI LIVER (EOVIST) WO/W [...] segment 6 without viable tumor. Hepatic steatosis. Torts Law Professor: LINDEN Transcribe Date/Time: Oct 30 2024 10:22A Dictated by : LINN ASTUDILLO MD This examination was interpreted and the report reviewed and electronically signed by: LINN ASTUDILLO MD on Oct 30 2024 10:52AM EST us Abdirashid Abhyankar MD [facility] Final Result * (ABNORMAL) URINALYSIS (WITH MICROSCOPIC) WITH CULTURE IF INDICATED (10/29/2024 8:53 PM EDT) Color Dark Yellow(A) Yellow 10/29/2024 9:50 PM EDT [facility] Clarity Turbid(A) Clear 10/29/2024 9:50 PM EDT [facility] Glucose, Urine Negative Trace, Negative 10/29/2024 9:50 PM EDT [facility] Bilirubin, Urine 1+(A) Negative 10/30/19 25 9:50 PM EDT [facility] Comment:Suggest correlation with clinical findings and serum bilirubin if clinically indicated. Ketones, Urine Negative Negative, Trace 10/29/2024 9:50 PM EDT [facility] Specific [place], Ur 1.019 1.005 - 1.030 10/29/2024 9:50 PM EDT [facility] Hemoglobin/Blood ,Ur Negative Negative, Trace 10/29/2024 9:50 PM EDT [facility] pH, Urine 8.0 5.0 - 8.0 10/29/2024 9:50 PM EDT [facility] Protein, Urine 1+(A) Trace, Negative 10/29/2024 9:50 PM EDT [facility] Urobilinogen 2+(A) Normal 10/29/2024 9:50 PM EDT [facility] Nitrites Negative Negative 10/29/2024 9:50 PM EDT [facility] Leuk Esterase Negative Negative, 25 Renzo/uL 10/29/2024 9:50 PM EDT [facility] WBC, Urine 6-10 /HPF(A) 0-5 /HPF 10/29/2024 9:50 PM EDT [facility] RBC, Urine 3-5 /HPF(A) 0-3 /HPF 10/29/2024 9:50 PM EDT [facility] Bacteria Rare(A) None Seen /HPF 10/29/2024 9:50 PM EDT [facility] Squamous Epithelial Cells Few /HPF 10/29/2024 9:50 PM EDT [facility] Urine MID-STREAM URINE SPECIMEN / Unknown Non Blood / Unknown 10/29/2024 8:53 PM EDT 10/29/2024 9:23 PM EDT Milan Salinas DO LABORATORY Final Re sult Performing Organization Address [facility] Co de Phone Number [facility] [id number] [place] [address], * COVID & INFLUENZA A/B & RSV PCR, EXPEDITED (10/29/2024 8:45 PM EDT) [facility] SARS-CoV-2 (Agent of COVID-19) RNA Not detected See comment CEPHEID [employer]EXPERT COVID19 10/29/2024 9:34 PM EDT [facility] Influenza A RNA Not detected Not Detected CEPID GENEXPERT COVID19 10/29/2024 9:34 PM EDT [facility] Influenza B RNA Not detected Not Detected CEPHEID GENEXPERT COVID19 10/29/2024 9:34 PM EDT [facility] Respiratory syncytial virus (RSV) RNA Not detected Not Detected CEPID GENEXPERT COVID19 10/29/2024 9:34 PM EDT [facility] Swab NASOPHARYNGEAL SWAB / Unknown Non Blood / Unknown 10/29/2024 8:45 PM EDT 10/29/2024 8:51 PM EDT Narrative [facility] - 10/29/2024 9:34 PM EDT Reference Range (the expected result in uninfected individuals): Not detected Milan Salinas DO MICROBIOLOGY Final Re sult Performing Organization Address [facility] Co de Phone Number [facility] [address] [place] [address], * (ABNORMAL) MAGNESIUM (10/29/2024 8:40 PM EDT) [facility] Magnesium 1.6(L) 1.7 - 2.3 mg/dL 10/29/2024 9:16 PM EDT [facility] Blood BLOOD SPECIMEN / Unknown Venipuncture / Unknown 10/29/2024 8:40 PM EDT 10/29/2024 8:51 PM EDT Milan Salinas DO LABORATORY Final Re sult Performing Organization Address [facility]/ZIP Co de Phone Number [facility] [phone] [phone], * SEPSIS LACTATE W/ REFLEX (INITIAL) (10/29/2024 8:40 PM EDT) [facility] Sepsis Lactate 1.7 <=2.0 mmol/L 10/29/2024 8:57 PM EDT [facility] Blood BLOOD SPECIMEN / Unknown Venipuncture / Unknown 10/29/2024 8:40 PM EDT 10/29/2024 8:51 PM EDT Milan Salinas DO LABORATORY Final Re sult Performing Organization Address [facility] de Phone Number [facility] [address] [place] [address], * (ABNORMAL) COMPREHENSIVE METABOLIC PANEL (10/29/2024 8:40 PM EDT) Only the most recent of3 resultswithin the time period is included. [facility] Protein, Total 6.2(L) 6.3 - 8.0 g/dL 10/29/2024 9:16 PM EDT [facility] Albumin 4.0 3.9 - 4.9 g/dL 10/29/2024 9:16 PM EDT [facility] Calcium, Total 8.7 8.5 - 10.2 mg/dL 10/29/2024 9:16 PM EDT [facility] Bilirubin, Total 6.2(H) 0.2 - 1.3 mg/dL 10/29/2024 9:16 PM EDT [facility] Alkaline Phosphatase 100 34 - 123 U/L 10/29/2024 9:16 PM EDT [facility] AST 167(H) 13 - 35 U/L 10/29/2024 9:16 PM EDT [facility] ALT 127(H) 7 - 38 U/L 10/29/2024 9:16 PM EDT [facility] Glucose 124(H) 74 - 99 mg/dL 10/29/2024 9:16 PM EDT [facility] Comment: The [place] [employer] (ADA) provides guidance for cutoff [...] Standards of Medical Care in Diabetes 2016, [place] [employer]. Diabetes Care. 2016.39(Suppl 1). BUN 9 7 - 21 mg/dL 10/29/2024 9:16 PM EDT [facility] Creatinine 0.76 0.58 - 0.96 mg/dL 10/29/2024 9:16 PM [facility] Sodium 136 136 - 144 mmol/L 10/29/2024 9:16 PM EDT [facility] Potassium 3.8 3.7 - 5.1 mmol/L 10/29/2024 9:16 PM EDT [facility] Chloride 100 98 - 107 mmol/L 10/29/2024 9:16 PM EDT [facility] CO2 21(L) 22 - 30 mmol/L 10/29/2024 9:16 PM [facility] Anion Gap 15 8 - 15 mmol/L 10/29/2024 9:16 PM EDT [facility] Estimated Glomerular Filtration Rate 85 >=60 mL/min/1. 73m 10/29/2024 9:16 PM [facility] Comment:Estimated Glomerular Filtration Rate (eGFR) is [...] Milan Salinas DO LABORATORY Final Re sult [facility] [id number] [phone], [place] * (ABNORMAL) COMPLETE BLOOD COUNT AND DIFFERENTIAL (10/29/2024 8:40 PM EDT) Only the most recent of3 resultswithin the time period is included. WBC 9.44 3.70 - 11.00 k/uL 10/29/2024 9:12 PM EDT [facility] RBC 2.85(L) 3.90 - 5.20 m/uL 10/29/2024 9:12 PM EDT [facility] Hemoglobin 11.3(L) 11.5 - 15.5 g/dL 10/29/2024 9:12 PM EDT [facility] Hematocrit 30.6(L) 36.0 - 46.0 % 10/29/2024 9:12 PM EDT [facility] MCV 107.4(H) 80.0 - 100.0 fL 10/29/2024 9:12 PM EDT [facility] MCH 39.6(H) 26.0 - 34.0 pg 10/29/2024 9:12 PM EDT [facility] MCHC 36.9(H) 30.5 - 36.0 g/dL 10/29/2024 9:12 PM EDT [facility] RDW-CV 15.7(H) 11.5 - 15.0 % 10/29/2024 9:12 PM EDT [facility] Platelet Count 140(L) 150 - 400 k/uL 10/29/2024 9:12 PM EDT [facility] Comment:No clot detected. MPV 9.1 9.0 - 12.7 fL 10/29/2024 9:12 PM EDT [facility] Neutrophils % 91.5 % 10/29/2024 9:12 PM EDT [facility] Abs Neut 8.64(H) 1.45 - 7.50 k/uL 10/29/2024 9:12 PM EDT [facility] Lymphocytes % 1.4 % 10/29/2024 9:12 PM EDT [facility] Abs Lymph 0.13(L) 1.00 - 4.00 k/uL 10/29/2024 9:12 PM EDT [facility] Monocytes % 6.4 % 10/29/2024 9:12 PM EDT [facility] Abs [facility] 0.60 <0.87 k/uL 10/29/2024 9:12 PM EDT [facility] Eosinophils % 0.0 % 10/29/2024 9:12 PM EDT [facility] Abs Eosin <0.03 <0.46 k/uL 10/29/2024 9:12 PM EDT [facility] Basophils % 0.2 % 10/29/2024 9:12 PM EDT [facility] Abs Baso <0.03 <0.11 k/uL 10/29/2024 9:12 PM EDT [facility] Immature Granulocytes % 0.5 % 10/29/2024 9:12 PM EDT [facility] Abs Immature Gran 0.05 <0.10 k/uL 10/29/2024 9:12 PM EDT [facility] NRBC 0.3 /100 WBC 10/29/2024 9:12 PM EDT [facility] Absolute nRBC 0.03(H) <0.01 k/uL 10/29/2024 9:12 PM EDT [facility] Diff Type Auto 10/29/2024 9:12 PM EDT [facility] Blood BLOOD SPECIMEN / Unknown Venipuncture / Unknown 10/29/2024 8:40 PM EDT 10/29/2024 8:51 PM EDT us Milan Salinas DO LABORATORY Final Re sult [facility] [phone] [phone], [place] * XR CHEST 2V FRONTAL/LAT (10/29/2024 8:23 PM EDT) Anatomical Region Laterality Modality Chest Radiographic Sophie ging 10/29/2024 8:20 PM EDT Impressions 10/29/2024 8:41 PM EDT IMPRESSION: Unremarkable exam with no acute radiographic abnormality. Torts Law Professor: LINDEN Transcribe Date/Time: Oct 29 2024 8:38P Dictated [...] and soft tissues: Unremarkable. Procedure Note Provider, [facility] [place] - 10/29/2024 * * *Final Report* * [...] Unremarkable exam with no acute radiographic abnormality. Torts Law Professor: PSCB Transcribe Date/Time: Oct 29 2024 8:38P Dictated by : PAOLA ZARAGOZA MD This examination was interpreted and the report reviewed and electronically signed by: PAOLA ZARAGOZA MD on Oct 29 2024 8:38PM EST us Milan Salinas DO RAD-PAMA Final Re sult * CT LIVER/PELVIS W IVCON (10/01/2024 11:10 AM EDT) Anatomical Region Laterality Modality Abdomen Nuclear Medicine , Nuclear Medicine 10/01/2024 11:1 0 AM EDT Impressions 10/01/2024 2:21 PM EDT IMPRESSION: 1. Interval increase in size of left hepatic lobe hypodensity, now measuring up to 1.6 cm. Findings are again suspicious for progression of metastatic disease. No new hepatic lesions are identified. 2. No evidence of abdominal or pelvic lymphadenopathy. 3. Nonobstructive nephrolithiasis. Transcribe Date/Time: Oct 01 2024 2:07P Dictated by: ESEQUIEL CARDENAS MD This examination was interpreted and the report reviewed and electronically signed by: ESEQUIEL CARDENAS MD on Oct 01 2024 2:19PM EST Thank you for allowing us to participate in the care of your patient. Should there be any questions regarding this interpretation, please call [phone]. If you are unable to reach us at the number above, please feel free to contact [facility] at [phone]. Narrative 10/01/2024 2:21 PM EDT * * *Final Report* * * DATE OF EXAM: Oct 01 2024 11:10AM [facility] 0550 - CT LIVER/PELVIS W IVCON / PROCEDURE REASON: multiple diagnoses * * * * Physician Interpretation * * * * RESULT: EXAMINATION: CT ABDOMEN (LIVER) AND PELVIS WITH IV CONTRAST CLINICAL HISTORY: History of breast cancer. TECHNIQUE: Multiphase imaging of the abdomen was performed utilizing IV contrast. Venous phase imaging was continued through the pelvis. Contrast: IV: 100 ml of Omnipaque 350 Oral: None CT Radiation dose: Integrated Dose-length product (DLP) for this visit = 2382 mGy*cm. CT Dose Reduction Employed: Automated exposure control (AEC) COMPARISON: CT performed 08/20/2024 RESULT: Liver: Previously described rounded hypodensity in segment 2 now measures 1.6 x 1.6 cm, previously 1.3 x 1 cm. No new hepatic lesions are identified. Biliary: The gallbladder is absent. Mild ductal dilation is seen in the left hepatic lobe, similar to prior exam. The common bile duct is normal in caliber status post cholecystectomy. Pancreas: No mass or duct dilation. Adrenals: No mass. Kidneys: The kidneys symmetrically enhance. Bilateral cortical and parapelvic cysts are noted. Nonobstructing calculi are noted in the lower pole of the left kidney measuring up to 5 mm. GI tract: The stomach is unremarkable. Postsurgical changes are noted in both the small bowel and colon, unchanged from prior exam. Lymph nodes: No abdominal lymphadenopathy. Mesentery/Peritoneum: No ascites. No mass. Retroperitoneum: No mass. Vasculature: - Abdominal aorta and iliac arteries: Atherosclerotic calcifications without aneurysm. - Celiac and SMA: Patent without stenosis. - Portal venous system (SMV, splenic vein, portal vein and branches): Patent. - Hepatic veins: Patent. Pelvis: No mass, ascites or fluid collection. The urinary bladder is unremarkable. Bones/Soft Tissues: Degenerative changes are noted in the lumbar spine. Superficial soft tissues are unremarkable. Lower thorax: There is bibasal atelectasis. No lobar consolidation is seen. Localizer images: No additional findings. Procedure Note Provider, [facility] [place] - 10/01/2024 * * *Final Report* * * DATE OF EXAM: Oct 01 2024 11:10AM [facility] 0550 - CT LIVER/PELVIS W IVCON / PROCEDURE REASON: multiple diagnoses * * * * Physician Interpretation * * * * RESULT: EXAMINATION: CT ABDOMEN (LIVER) AND PELVIS WITH IV CONTRAST CLINICAL HISTORY: History of breast cancer. TECHNIQUE: Multiphase imaging of the abdomen was performed utilizing IV contrast. Venous phase imaging was continued through the pelvis. Contrast: IV: 100 ml of Omnipaque 350 Oral: None CT Radiation dose: Integrated Dose-length product (DLP) for this visit = 2382 mGy*cm. CT Dose Reduction Employed: Automated exposure control (AEC) COMPARISON: CT performed 08/20/2024 RESULT: Liver: Previously described rounded hypodensity in segment 2 now measures 1.6 x 1.6 cm, previously 1.3 x 1 cm. No new hepatic lesions are identified. Biliary: The gallbladder is absent. Mild ductal dilation is seen in the left hepatic lobe, similar to prior exam. The common bile duct is normal in caliber status post cholecystectomy. Pancreas: No mass or duct dilation. Adrenals: No mass. Kidneys: The kidneys symmetrically enhance. Bilateral cortical and parapelvic cysts are noted. Nonobstructing calculi are noted in the lower pole of the left kidney measuring up to 5 mm. GI tract: The stomach is unremarkable. Postsurgical changes are noted in both the small bowel and colon, unchanged from prior exam. Lymph nodes: No abdominal lymphadenopathy. Mesentery/Peritoneum: No ascites. No mass. Retroperitoneum: No mass. Vasculature: - Abdominal aorta and iliac arteries: Atherosclerotic calcifications without aneurysm. - Celiac and SMA: Patent without stenosis. - Portal venous system (SMV, splenic vein, portal vein and branches): Patent. - Hepatic veins: Patent. Pelvis: No mass, ascites or fluid collection. The urinary bladder is unremarkable. Bones/Soft Tissues: Degenerative changes are noted in the lumbar spine. Superficial soft tissues are unremarkable. Lower thorax: There is bibasal atelectasis. No lobar consolidation is seen. Localizer images: No additional findings. IMPRESSION IMPRESSION: 1. Interval increase in size of left hepatic lobe hypodensity, now measuring up to 1.6 cm. Findings are again suspicious for progression of metastatic disease. No new hepatic lesions are identified. 2. No evidence of abdominal or pelvic lymphadenopathy. 3. Nonobstructive nephrolithiasis. Transcribe Date/Time: Oct 01 2024 2:07P Dictated by: ESEQUIEL CARDENAS MD This examination was interpreted and the report reviewed and electronically signed by: ESEQUIEL CARDENAS MD on Oct 01 2024 2:19PM EST Thank you for allowing us to participate in the care of your patient. Should there be any questions regarding this interpretation, please call [phone]. If you are unable to reach us at the number above, please feel free to contact [facility] at [phone]. us Abdirashid Anderson MD CT-PAMA Final Result * VITAMIN B12 (10/01/2024 9:39 AM EDT) Vitamin B12 395 232 - 1,245 pg/mL 10/01/2024 8:30 PM EDT [facility] Blood BLOOD SPECIMEN / Unknown Venipuncture / Unknown 10/01/2024 9:39 AM EDT 10/01/2024 9:46 AM EDT us Abdirashid Anderson MD LABORATORY Final Result [facility] [address] [address] [address], [place] * IRON AND TIBC (10/01/2024 9:39 AM EDT) Pathologist [facility] Iron 141 41 - 186 ug/dL 10/01/2024 10:36 PM EDT [facility] TIBC 310 232 - 386 ug/dL 10/01/2024 10:36 PM EDT [facility] Transferrin Saturation 45.5 15.0 - 57.0 % 10/01/2024 10:36 PM EDT [facility] Blood BLOOD SPECIMEN / Unknown Venipuncture / Unknown 10/01/2024 9:39 AM EDT 10/01/2024 9:46 AM EDT us Abdirashid Anderson MD LABORATORY Final Result Performing Organization Address [facility] de Phone Number [facility] [address] [place] [address], [place] * FOLATE, SERUM (10/01/2024 9:39 AM EDT) [facility] Folate >20.0 >4.7 ng/mL 10/01/2024 8:30 PM EDT [facility] Comment: A result of > 20 ng/mL is not necessarily indicative of a pathologic or treatable condition: it reflects a limitation of the test methodology. Assay reference range: 4.8 to 24.2 ng/mL. Suitable for detection of folate deficiency. Reference: Folate III (Folate III) [package insert V 1.0 Faroese]. [facility], [place], [place]: January 2015. Blood BLOOD SPECIMEN / Unknown Venipuncture / Unknown 10/01/2024 9:39 AM EDT 10/01/2024 9:46 AM EDT us Abdirashid Anderson MD LABORATORY Final Result Performing Organization Address [facility]/ZIP Co de Phone Number [facility] [address] [place] [address], [place] * (ABNORMAL) FERRITIN (10/01/2024 9:39 AM EDT) Pathologist [facility] Ferritin 249.0(H) 14.7 - 205.1 ng/mL 10/01/2024 8:23 PM EDT [facility] Blood BLOOD SPECIMEN / Unknown Venipuncture / Unknown 10/01/2024 9:39 AM EDT 10/01/2024 9:46 AM EDT us Abdirashid Anderson MD LABORATORY Final Result Performing Organization Address [facility] Co de Phone Number [facility] [address] [place] [address], [place] * (ABNORMAL) CA 15-3 BLD (10/01/2024 9:39 AM EDT) Only the most recent of2 resultswithin the time period is included. Pathologist [facility] Breast CA 15-3 37.4(H) <26.0 U/mL 10/01/2024 8:36 PM EDT [facility] Comment:The CA 15-3 test met hodology used is the Electrochemiluminescence Immunoassay by [facility]. Results obtained with different methods or kits cannot be used interchangeably. Blood BLOOD SPECIMEN / Unknown Venipuncture / Unknown 10/01/2024 9:39 AM EDT 10/01/2024 9:46 AM EDT us Abdirashid Anderson MD LABORATORY Final Result Performing Organization Address [facility] Co de Phone Number [facility] [place] [address], [place] * CT LIVER/PELVIS W IVCON (08/20/2024 2:05 PM EDT) Anatomical Region Laterality Modality Abdomen Nuclear Medicine , Nuclear Medicine 08/20/2024 2:04 PM EDT Impressions 08/21/2024 12:23 PM EDT IMPRESSION: 1. 1.2 cm left lobe hepatic hypodensity, slightly progressed in size when compared to the prior examination, concerning for progression of metastases. 2. No substantial intra-abdominal or pelvic lymphadenopathy is appreciated. 3. Left-sided nonobstructive nephrolithiasis is again noted. Transcribe Date/Time: Aug 21 2024 9:25A Dictated by: UBALDO SAWYER MD This examination was interpreted and the report reviewed and electronically signed by: UBALDO ASWYER MD on Aug 21 2024 12:20PM EST Thank you for allowing us to participate in the care of your patient. Should there be any questions regarding this interpretation, please call [phone]. If you are unable to reach us at the number above, please feel free to contact [facility] at [phone]. Narrative 08/21/2024 12:23 PM EDT * * *Final Report* * * DATE OF EXAM: Aug 20 2024 2:04PM [facility] 0550 - CT LIVER/PELVIS W IVCON / PROCEDURE REASON: multiple diagnoses * * * * Physician Interpretation * * * * RESULT: EXAMINATION: CT ABDOMEN (LIVER) AND PELVIS WITH IV CONTRAST CLINICAL HISTORY: Metastatic breast carcinoma TECHNIQUE: Multiphase imaging of the abdomen was performed utilizing IV contrast. Venous phase imaging was continued through the pelvis. Contrast: IV: 100 ml of Omnipaque 350 Oral: None CT Radiation dose: Integrated Dose-length product (DLP) for this visit = 2334 mGy*cm. CT Dose Reduction Employed: Automated exposure control(AEC) and iterative recon COMPARISON: 05/28/2024. RESULT: Liver: Left lobe intrahepatic biliary dilation is again appreciated, unchanged. 1.3 cm hypodensity adjacent to this region appears more conspicuous, previously 0.9 cm, image 73, series 8. Additional 0.6 cm subcapsular right lobe hypodensity, image 159, series 8, stable. No new hepatic lesion is appreciated. The gallbladder is not identified. Spleen: No splenomegaly. No mass. Pancreas: No mass or ductal dilation. Adrenal glands: No mass. Kidneys: No enhancing mass or hydronephrosis. Subcentimeter hypodensities are difficult to fully characterize, however, likely related to small cysts. Bilateral parapelvic cysts are again noted. Nonobstructive left-sided nephrolithiasis is again appreciated, larger measuring approximately 6 mm, unchanged. GI Tract: No bowel wall thickening or dilation. Postoperative changes involving the small and large bowel, stable. Lymph nodes: No substantial abdominal or pelvic lymphadenopathy. Mesentery/Peritoneum: No ascites or mass. Retroperitoneum: No mass. Vasculature: - Abdominal aorta and iliac arteries: Atherosclerotic calcifications without aneurysm. - Celiac and SMA: Patent. - Portal venous system (SMV, splenic vein, portal vein and branches): Patent. - Hepatic veins: Patent. Pelvis: No free fluid or pelvic mass. The uterus is absent. No substantial inguinal adenopathy. Bones/Soft Tissues: Mild degenerative change within the lumbar spine. No osseous destructive process. Lower Thorax: A CT examination of the chest has been performed concurrently and will be dictated separately. Network Associate (topogram) images: No additional findings. Procedure Note Provider, [facility] [place] - 08/21/2024 * * *Final Report* * * DATE OF EXAM: Aug 20 2024 2:04PM [facility] 0550 - CT LIVER/PELVIS W IVCON / PROCEDURE REASON: multiple diagnoses * * * * Physician Interpretation * * * * RESULT: EXAMINATION: CT ABDOMEN (LIVER) AND PELVIS WITH IV CONTRAST CLINICAL HISTORY: Metastatic breast carcinoma TECHNIQUE: Multiphase imaging of the abdomen was performed utilizing IV contrast. Venous phase imaging was continued through the pelvis. Contrast: IV: 100 ml of Omnipaque 350 Oral: None CT Radiation dose: Integrated Dose-length product (DLP) for this visit = 2334 mGy*cm. CT Dose Reduction Employed: Automated exposure control(AEC) and iterative recon COMPARISON: 05/28/2024. RESULT: Liver: Left lobe intrahepatic biliary dilation is again appreciated, unchanged. 1.3 cm hypodensity adjacent to this region appears more conspicuous, previously 0.9 cm, image 73, series 8. Additional 0.6 cm subcapsular right lobe hypodensity, image 159, series 8, stable. No new hepatic lesion is appreciated. The gallbladder is not identified. Spleen: No splenomegaly. No mass. Pancreas: No mass or ductal dilation. Adrenal glands: No mass. Kidneys: No enhancing mass or hydronephrosis. Subcentimeter hypodensities are difficult to fully characterize, however, likely related to small cysts. Bilateral parapelvic cysts are again noted. Nonobstructive left-sided nephrolithiasis is again appreciated, larger measuring approximately 6 mm, unchanged. GI Tract: No bowel wall thickening or dilation. Postoperative changes involving the small and large bowel, stable. Lymph nodes: No substantial abdominal or pelvic lymphadenopathy. Mesentery/Peritoneum: No ascites or mass. Retroperitoneum: No mass. Vasculature: - Abdominal aorta and iliac arteries: Atherosclerotic calcifications without aneurysm. - Celiac and SMA: Patent. - Portal venous system (SMV, splenic vein, portal vein and branches): Patent. - Hepatic veins: Patent. Pelvis: No free fluid or pelvic mass. The uterus is absent. No substantial inguinal adenopathy. Bones/Soft Tissues: Mild degenerative change within the lumbar spine. No osseous destructive process. Lower Thorax: A CT examination of the chest has been performed concurrently and will be dictated separately. Network Associate (topogram) images: No additional findings. IMPRESSION IMPRESSION: 1. 1.2 cm left lobe hepatic hypodensity, slightly progressed in size when compared to the prior examination, concerning for progression of metastases. 2. No substantial intra-abdominal or pelvic lymphadenopathy is appreciated. 3. Left-sided nonobstructive nephrolithiasis is again noted. Transcribe Date/Time: Aug 21 2024 9:25A Dictated by: UBALDO SAWYER MD This examination was interpreted and the report reviewed and electronically signed by: UBALDO SAWYER MD on Aug 21 2024 12:20PM EST Thank you for allowing us to participate in the care of your patient. Should there be any questions regarding this interpretation, please call [phone]. If you are unable to reach us at the number above, please feel free to contact [facility] at [phone]. us Abdirashid Anderson MD CT-PAMA Final Result * CT CHEST W IVCON (08/20/2024 2:05 PM EDT) Anatomical Region Laterality Modality Chest Nuclear Medicine , Nuclear Medicine 08/20/2024 2:04 PM EDT Impressions 08/21/2024 10:01 AM EDT IMPRESSION: Stable CT examination of the chest. Bilateral subcentimeter pulmonary nodules, unchanged. No substantial intrathoracic adenopathy is identified. Transcribe Date/Time: Aug 21 2024 9:16A Dictated by: UBALDO SAWYER MD This examination was interpreted and the report reviewed and electronically signed by: UBALDO SAWYER MD on Aug 21 2024 9:59AM EST Thank you for allowing us to participate in the care of your patient. Should there be any questions regarding this interpretation, please call [phone]. If you are unable to reach us at the number above, please feel free to contact [facility] at [phone]. Narrative 08/21/2024 10:01 AM EDT * * *Final Report* * * DATE OF EXAM: Aug 20 2024 2:04PM [facility] 0539 - CT CHEST W IVCON / PROCEDURE REASON: multiple diagnoses * * * * Physician Interpretation * * * * RESULT: EXAMINATION: CHEST CT WITH CONTRAST CLINICAL HISTORY: Metastatic breast carcinoma Technique: Spiral CT acquisition of the chest from the thoracic inlet to the upper abdomen following IV contrast. MQ: CTCW_6 Contrast: 100 mL Omnipaque [address] Radiation dose: Integrated Dose-length product (DLP) for this visit = 2334 mGy*cm CT Dose Reduction Employed: Automated exposure control(AEC) and iterative recon Comparison: CT chest 05/28/2024 RESULT: Limitations: None. Lines, tubes, and devices: None. Lung parenchyma , airways, and pleural space: No consolidative process or pleural effusion. The trachea and major airways appear patent. Mild upper lobe centrilobular emphysematous changes are again appreciated. 4 mm subpleural posterior left upper lobe nodule, image 37, series 3, stable. 6 mm subpleural right lower lobe nodule, image 85, series 3, stable. No suspicious enlarging nodule is appreciated. Lower neck, lymph nodes, and mediastinum: The thyroid gland is not well visualized. No substantial supraclavicular, axillary, mediastinal or hilar adenopathy is appreciated. Heart, pericardium, and thoracic vessels: The thoracic aorta is normal in caliber. No substantial pericardial effusion. Coronary artery calcification is noted. Bones/Soft Tissues: No osseous destructive process. Degenerative change within the thoracic spine is again identified. Upper Abdomen: A CT examination of the abdomen has been performed concurrently and will be dictated separately. Network Associate (topogram) images: No additional findings. Procedure Note Provider, [facility] [place] - 08/21/2024 * * *Final Report* * * DATE OF EXAM: Aug 20 2024 2:04PM [facility] 0539 - CT CHEST W IVCON / PROCEDURE REASON: multiple diagnoses * * * * Physician Interpretation * * * * RESULT: EXAMINATION: CHEST CT WITH CONTRAST CLINICAL HISTORY: Metastatic breast carcinoma Technique: Spiral CT acquisition of the chest from the thoracic inlet to the upper abdomen following IV contrast. MQ: CTCW_6 Contrast: 100 mL Omnipaque [address] Radiation dose: Integrated Dose-length product (DLP) for this visit = 2334 mGy*cm CT Dose Reduction Employed: Automated exposure control(AEC) and iterative recon Comparison: CT chest 05/28/2024 RESULT: Limitations: None. Lines, tubes, and devices: None. Lung parenchyma , airways, and pleural space: No consolidative process or pleural effusion. The trachea and major airways appear patent. Mild upper lobe centrilobular emphysematous changes are again appreciated. 4 mm subpleural posterior left upper lobe nodule, image 37, series 3, stable. 6 mm subpleural right lower lobe nodule, image 85, series 3, stable. No suspicious enlarging nodule is appreciated. Lower neck, lymph nodes, and mediastinum: The thyroid gland is not well visualized. No substantial supraclavicular, axillary, mediastinal or hilar adenopathy isappreciated. Heart, pericardium, and thoracic vessels: The thoracic aorta is normal in caliber. No substantial pericardial effusion. Coronary artery calcification is noted. Bones/Soft Tissues: No osseous destructive process. Degenerative change within the thoracic spine is again identified. Upper Abdomen: A CT examination of the abdomen has been performed concurrently and will be dictated separately. Network Associate (topogram) images: No additional findings. IMPRESSION IMPRESSION: Stable CT examination of the chest. Bilateral subcentimeter pulmonary nodules, unchanged. No substantial intrathoracic adenopathy is identified. Transcribe Date/Time: Aug 21 2024 9:16A Dictated by: UBALDO SAWYER MD This examination was interpreted and the report reviewed and electronically signed by: UBALDO SAWYER MD on Aug 21 2024 9:59AM EST Thank you for allowing us to participate in the care of your patient. Should there be any questions regarding this interpretation, please call [phone]. If you are unable to reach us at the number above, please feel free to contact [facility] at [phone]. us Abdirashid Anderson MD CT-PAMA Final Result from Last 3 Months Insurance MEDICARE BANK[employer] Care Teams Meter Readers Supervisor Relationship Specialty Start Date End Date Kraig Lenz MD [address] [place] [address] PCP - General Family Medicine 11/28/21 Jenn Qureshi, CHRISTOPHER [address] [place] [address] Specialty Patient Intake Coordinator Hematology/Oncology 05/27/23 Abdirashid Anderson MD [facility] [place] [address] Physician Hematology/Oncology 05/27/23 Tamia Martinez APRN.APPROVER [facility] [place] [address] Nurse Practitioner Hematology/Oncology 05/27/23
--- OUTSIDE RECORDS SUMMARY | 2024-10-30 17:54 | XMS_ITS | Encounter Summary ---
Author Organization [employer] s tem Address [id number] [address] [place] [address] Care Team Providers Care Supervisor Typesetting Name Role Phone Kraig Lenz MD Primary Care Provider [phone] Encounter Details Date Type Department Care Team (Late st Contact Info) Description 05/22/2022 Orders Only [facility] [address] [place] [id number] Ranjeet Peters, [facility] [address] Social History Tobacco Use Types Packs/Day Years [...] Orientation Straight 12/24/2019 7: 02 AM EDT documented as of this encounter Plan of Treatment Not on file documented as of this encounter Goals Goal Patient Goal Type Associated Problems Recent Progress Patient-Stated? Author home General Yes Yulia Redding, RN Note: Evaluation of progress towards goal: PT/OT consulted for discharge recommendations. Patient may need Home Health Care vs [facility] Facility documented as of this encounter Visit Diagnoses Not on filedocumented in this encounter Additional Health Concerns Assessment Noted Time PHQ-9 Depression Total Score: 0 01/04/20 20 1:35 PM EDT documented as of this encounter Care Teams Supervisor Typesetting Relationship Specialty Start Date End Date Kraig Lenz MD PCP - General Family Medicine 09/16/19 documented as of this encounter
--- OUTSIDE RECORDS SUMMARY | 2024-10-30 17:54 | XMS_ITS | Encounter Summary ---
Author [facility] Address [id number] [address] [place] [address] Care Team Providers Care Decaler Name Role Phone Kraig Lenz MD Primary Care Provider [phone] Encounter Details Date Type Department Care Team (Late st Contact Info) Description 01/28/2019 [facility]phone [facility] [address] [phone] Slime Padgett, ASHLEY Social History Tobacco Use Types Packs/Day Years Used Date Smoking Tobacco: Former Cigarettes Q uit: 12/10/2006 Smokeless Tobacco: Never Alcohol Use Standard Drinks/Week Comments No 0 (1 standard drink = 0.6 oz pur e alcohol) Childcare Answer Date Recorded Childcare Unknown 09/03/2018 [...] Date Last Indicated Resolved Time COVID-19 Rule-Out 11/13/2019 11/13/2019 11/13/2019 5:25 PM EDT Enteric Rule-Out 12/28/2020 12/28/2020 12/28/2020 10:49 PM EDT COVID-19 Rule-Out 02/06/2021 02/06/2021 02/06/2021 10:23 PM EST documented as of this encounter Care Teams Decaler Relationship Specialty Start Date End Date Kraig Lenz MD PCP - General Family Medicine 09/16/19 documented as of this encounter
--- OUTSIDE RECORDS SUMMARY | 2024-10-30 17:54 | XMS_ITS | Encounter Summary ---
Author Organization [facility] Address [address] [place] [address] Care Team Providers Care Dental Prosthetist Name Role Phone Kraig Lenz MD Primary Care Provider + Jenn Qureshi RN Unavailable [phone] Abdirashid Anderson MD Unavailable [phone] Tamia Martinez APRN.OFFICE ANALYST Unavailable [phone] Source Comments In the event this information is protected by the Federal Confidentiality of Alcohol and Drug AbusePatient Records regulations: The Federal rules restrict any use of the information to criminally investigate or prosecute any alcohol or drug abuse patient.[facility] Encounter Details Date Type Department Care Team (Late st Contact Info) Description 10/21/2024 Orders Only Hematology/Oncology [address] [place] [address] Lydia Vega PA-C [address] [place] [address] Social History Tobacco Use Types Packs/Day Years [...] is lower risk 7 08/31/2022 Data from: https://www.neighborhoodatlas.[facility]/. Last address used for calculation [address] [...] Contact Info) Description 11/05/2024 11:40 AM EDT [facility] Hematology/Oncology [address] [facility] [place] [address] Abdirashid Anderson MD [address] [place] [address] Harmon 11/10/2024 11:30 AM EDT Office Visit General Surgery [address] [place] [address] [place] [address] [place] [address] New; increase liver lesion size - ref by Dr. Anderson *schedule on documented as of this encounter Visit Diagnoses Not on filedocumented in this encounter Care Teams Dental Prosthetist Relationship Specialty Start Date End Date Kraig Lenz MD [address] [place] [address] PCP - General Family Medicine 11/28/21 Jenn Qureshi, RN [address] [place] [address] Specialty Oxygen Plant Operator Hematology/Oncology 05/27/23 Abdirashid Anderson MD [address] [place] [address] Physician Hematology/Oncology 05/27/23 Tamia Martinez APRN.OFFICE ANALYST [address] [facility] [place] [address] Nurse Practitioner Hematology/Oncology 05/27/23 documented as of this encounter
--- OUTSIDE RECORDS SUMMARY | 2024-10-30 17:54 | XMS_ITS | Encounter Summary ---
Author Organization [facility] Address [id number] [address] [place] [address] Care Team Providers Care Utility Worker Roller Shop Name Role Phone Kraig Lenz MD Primary Care Provider [phone] Encounter Details Date Type Department Care Team (Late st Contact Info) Description 12/13/2020 Orders Only [facility] General [facility] [address] [place] [phone] Alysia Lopez PA [address] [place] [address] Post-op pain (Primary Dx) Social History Tobacco Use Types [...] have Coronavirus / COVID-19? No / Unsure 12/01/2020 5:47 AM EDT documented as of this encounter Plan of Treatment Not on file documented as of this encounter Goals Goal Patient Goal Type Associated Problems Recent Progress Patient-Stated? Author home General Yes Yulia Redding, RN Note: Evaluation of progress towards goal: PT/OT consulted for discharge recommendations. Patient may need Home Health Care vs Retirement Facility documented as of this encounter Visit Diagnoses Diagnosis Post-op pain- Primary Other acute postoperative pain documented in this encounter Additional Health Concerns Infection Onset Date Last Indicated Resolved Time Enteric Rule-Out 12/28/2020 12/28/2020 12/28/2020 10:49 PM EDT COVID-19 Rule-Out 02/06/2021 02/06/2021 02/06/2021 10:23 PM EST Assessment Noted Time PHQ-9 Depression Total Score: 0 01/04/20 20 1:35 PM EDT documented as of this encounter Care Teams Utility Worker Roller Shop Relationship Specialty Start Date End Date rKaig Lenz MD PCP - General Family Medicine 09/16/19 documented as of this encounter
--- OUTSIDE RECORDS SUMMARY | 2024-10-30 17:54 | XMS_ITS | Clinical Summary ---
Author Organization [facility] Address [address] [place] [address] Care Team Providers Care Tube And Rod Straightener Name Role Phone Unavailable Primary Care Provider Unavailabl e Allergies Active Allergy Reactions Criticality Noted Date Comments Levofloxacin Anaphylaxis,Other High 09/11/2012 Pt does not remember Nisoldipine GI intolerance 09/11/2012 Pravastatin Other,Unknown High 12/10/2016 Sulfa Antibiotics Hives,Other,Rash,GI intolerance High 12/10/2016 Medications Aspirin-Calcium Carbonate 81-777 MG tablet Take 81 mg by mouth Active biotin 1000 MCG tablet Take 1,000 mcg by mouth Active cholecalciferol (Vitamin D-3) 10 MCG (400 UNIT) capsule Take 400 Units by mouth in the morning. Active DULoxetine (Cymbalta) [address] capsule Take 30 mg by mouth Daily 03/28/2023 Active HYDROcodone-pranay taminophen (Windham) 5-325 MG tablet Take 1 tablet by mouth every 6 (six) hours if needed 06/24/2023 Active ibuprofen 800 MG tablet Active lansoprazole (Prevacid) [address] capsule Take 1 capsule every day by oral route for 30 days. Active levothyroxine (Synthroid, Levoxyl) 125 MCG tablet Take 1 tablet every day by oral route for 30 days. Active loperamide (Imodium) 2 MG capsule TAKE 2 CAPSULES BY MOUTH IN THE MORNING AND 2 CAPSULES AT BEDTIME 03/28/2023 Active Meclizine HCl 25 MG chewable tablet TAKE 1 TABLET BY MOUTH EVERY 12 HOURS NEEDED FOR DIZZINESS. Active Melatonin 5 MG capsule Take 10 mg by mouth Daily as needed Active meloxicam (Mobic) 7.5 MG tablet Take 7.5 mg by mouth in the morning. Active metoprolol tartrate (Lopressor) 50 MG tablet every 12 (twelve) hours Active ondansetron (Zofran) 8 MG tablet Take 8 mg by mouth every 8 (eight) hours if needed 11/29/2023 Active oxyCODONE-aceta minophen (Percocet) 5-325 MG tablet 12/30/2023 Act ely prochlorperazin e (Compazine) 10 MG tablet Take 10 mg by mouth every 6 (six) hours if needed 05/29/2023 Active rosuvastatin (Crestor) 5 MG tablet Take 5 mg by mouth Daily 12/17/2023 Active simethicone (Mylicon) 80 MG chewable tablet Chew 80 mg every 6 (six) hours if needed Active Ciclopirox 1 % shampooIndicati ons:Other seborrheic dermatitis Lather on wet hair, leave on 5 min, rinse 2-3 x week, 30 day supply 120 mL 11 01/09/2024 Active Active Problems Problem Noted Date Diagnosed Date Esophageal reflux 01/09/2024 Disease of intestine, unspecified 01/09/2024 Difficulty walking 01/09/2024 Malignant neoplasm of female breast 01/09/2024 Dehydration 10/24/2023 Malignant neoplasm metastatic to liver 2 Overview (01/09/2024): replacing diagnoses that were inactivated after the 12/23 regulatory import Functional diarrhea 08/08/2021 Bone pain 08/03/2021 Altered bowel habits 01/10/2021 BRCA2 gene mutation positive 01/08/2020 Cholecystitis 04/07/2019 Fistula 10/01/2017 Diverticulitis of colon with perforation 018 Complication of colostomy 10/01/2017 Malignant tumor of breast 10/01/2017 Abnormal mammogram 05/21/2013 Breast cancer metastasized to liver, left 2012 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, unspecified laterality 01/09/2011 Carpal tunnel syndrome 11/12/2007 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/12/2007 Social History Tobacco Use Types Packs/Day Years Used Date Smoking Tobacco: Former Cigarettes Smokeless Tobacco: Never Tobacco Cessation:Counseling Given: Not Answered Comments Unknown Sex and Gender Information Value Date Recorded Sex Assigned at Not on file Legal Sex Female 6:46 PM EDT Gender Identity Not on file Sexual Orientation Not on file Last Filed Vital Signs Vital Sign Reading Time Taken Comments Blood Pressure 132/76 06/14/2020 12:00 PM EDT Pulse - - Temperature - - Respiratory Rate - - Oxygen Saturation - - Inhaled Oxygen Concentration - - Weight 88 kg (194 lb) 06/23/2020 12:00 PM EDT Height 165.1 cm (5' 5 ) 06/23/2020 12:00 PM EDT Body Mass Index 32.28 06/23/2020 12:00 PM EDT Plan of Treatment Not on file Insurance MEDICARE [employer]
--- OUTSIDE RECORDS SUMMARY | 2024-10-30 17:54 | XMS_ITS | Encounter Summary ---
[facility] Address [id number] [address] [place] [address] Care Team Providers Care Dispatch Associate Name Role Phone Kraig Lenz MD Primary Care Provider [phone] Encounter Details Date Type Department Care Team (Late st Contact Info) Description 05/18/2022 [facility]phone [facility] [address] [facility] [address] [place] [phone] Tran Pena CMA Social History Tobacco Use Types Packs/Day Years [...] AM EDT documented as of this encounter Miscellaneous Notes * Telephone Encounter - Tran Pena CMA - 05/18/2022 2:42 PM EST Called Nicki Valverde on 05/18/22 to reschedule appointment. Left message stating to call office to reschedule. documented in this encounter Plan of Treatment Not on file documented as of this encounter Goals Goal Patient Goal Type Associated Problems Recent Progress Patient-Stated? Author home General Yes Yulia Redding, RN Note: Evaluation of progress towards goal: PT/OT consulted for discharge recommendations. Patient may need Home Health Care vs [facility] Facility documented as of this encounter Visit Diagnoses Not on filedocumented in this encounter Additional Health Concerns Assessment Noted Time PHQ-9 Depression Total Score: 0 01/04/20 20 1:35 PM EDT documented as of this encounter Care Teams Dispatch Associate Relationship Specialty Start Date End Date Kraig Lenz MD PCP - General Family Medicine 09/16/19 documented as of this encounter
--- OUTSIDE RECORDS SUMMARY | 2024-10-30 17:54 | XMS_ITS | Encounter Summary ---
Author Organization [facility] Address [address] [place] [address] Care Team Providers Care Time Signal Wirer Name Role Phone Kraig Lenz MD Primary Care Provider [phone] Jenn Qureshi RN Unavailable [phone] Abdirashid Anderson MD Unavailable [phone] Tamia Martinez APRN.QUALITY SPECIALIST Unavailable [phone] Source Comments In the event this information is protected by the Federal Confidentiality of Alcohol and Drug AbusePatient Records regulations: The Federal rules restrict any use of the information to criminally investigate or prosecute any alcohol or drug abuse patient.[facility] Encounter Details Date Type Department Care Team (Late st Contact Info) Description 01/03/2022 Patient Msg General Surgery [address] [place] [address] [place] [address] [place] [address] Lodging Options Social History Tobacco Use Types Packs/Day Years [...] suspected to have Coronavirus/COVID-19? No / Unsure 01/04/2022 1:18 PM EDT documented as of this encounter Plan of Treatment Upcoming Encounters Date Type Department Care Team (Latest Contact Info) Description 11/05/2024 11:40 AM EDT [facility] Hematology/Oncology [address] [place] [address] [place] [address] Abdirashid Anderson MD [address] [facility] [place] [address] Harmon 11/10/2024 11:30 AM EDT Office [facility] [address] [facility] [address] [address] [place] [address] [facility] [place] [address] [id number] New; increase liver lesion size - ref by Dr. Anderson *schedule on documented as of this encounter Visit Diagnoses Not on filedocumented in this encounter Additional Health Concerns Infection Onset Date Last Indicated Resolved Time COVID-19 Rule-Out 01/10/2022 01/10/2022 01/10/2022 9:08 AM EDT COVID-19 Rule-Out 10/29/2024 10/29/2024 10/29/2024 9:34 PM EDT documented as of this encounter Care Teams Time Signal Wirer Relationship Specialty Start Date End Date Kraig Lenz MD [address] [place] [address] PCP - General Family Medicine 11/28/21 Jenn Qureshi, RN [address] [facility] [place] [address] Specialty Aircraft Engine Technician Hematology/Oncology 05/27/23 Abdirashid Anderson MD [address] [facility] [place] [address] Physician Hematology/Oncology 05/27/23 Tamia Martinez APRN.QUALITY SPECIALIST [address] [facility] [address] [place] [address] Nurse Practitioner Hematology/Oncology 05/27/23 documented as of this encounter
--- OUTSIDE RECORDS SUMMARY | 2024-10-30 17:54 | XMS_ITS ---
Author Organization [employer] tem Address [id number] [address] [place] [address] Care Team Providers Care Archery Instructor Name Role Phone Kraig Lenz MD Primary Care Provider [phone] Active Problems Problem Noted Date Diagnosed Date [...] from 10/30/2019:Stage IIA(pT2, pN0(sn), cM0, G3, ER-, OK-, HER2-) - Signed by Aimee Gardner DO on 01/01/2020 Clinical stage from 12/11/2019:Stage IIB(cT2, cN0, cM0, G3, ER-, OK-, HER2-) - Unsigned Personal history of malignant neoplasm of breast 12/11/2019 Cholecystitis 04/07/2019 Parastomal hernia without obstruction or gangren e 03/24/2019 Current Treatment and Therapy Plans ADULT ONCOLOGY/INFUSION CENTER FLUSH ORDERS* Plan Start Date:01/25/2020 Plan Provider:Vicky Quintana APRN-JOINT CUTTER MACHINE Linked Problems 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 Other Ken Reyes MD INFUSION TREATMENT 2 Plan Name Start Date Discontinue Date Treatment Medications Discontinue Reason Plan Provider ONCOLOGY STANDING ELECTROLYTE REPLACEMENT 03/29/2020 06/26/2024 No medications scheduled. Other Ken Reyes MD Resolved Problems Problem Noted Date Diagnosed Date Resolved Date Colostomy status 10/23/2020 08/08/2021
--- OUTSIDE RECORDS SUMMARY | 2024-10-30 17:54 | XMS_ITS | Encounter Summary ---
Author Organization [facility] Address [address] [place] [address] Care Team Providers Care Butcher Meat Name Role Phone Kraig Lenz MD Primary Care Provider [phone] Jenn Qureshi RN Unavailable [phone] Abdirashid Anderson MD Unavailable [phone] Tamia Martinez SKIN CARVER.SENIOR INDUSTRIAL ENGINEER Unavailable [phone] Source Comments In the event this information is protected by the Federal Confidentiality of Alcohol and Drug AbusePatient Records regulations: The Federal rules restrict any use of the information to criminally investigate or prosecute any alcohol or drug abuse patient.[facility] Encounter Details Date Type Department Care Team (Late st Contact Info) Description 01/05/2022 Patient Msg Pre Anesthesia [address] [facility] [address] [place] [address] Tamia Vazquez PA-C [address] [place] [address] PRE OP INSTRUCTIONS Social History Tobacco Use Types Packs/Day Years [...] Contact Info) Description 11/05/2024 11:40 AM EDT [facility] Hematology/Oncology [address] [place] [address] [place] [address] Abdirashid Anderson MD [address] [facility] [place] [address] Harmon 11/10/2024 11:30 AM EDT [facility] [address] [id number] [place] [address] [address] New; increase liver lesion size - ref by Dr. Anderson *schedule on 12th documented as of this encounter Visit Diagnoses Not on filedocumented in this encounter Additional Health Concerns Infection Onset Date Last Indicated Resolved Time COVID-19 Rule-Out 01/10/2022 01/10/2022 01/10/2022 9:08 AM EDT COVID-19 Rule-Out 10/29/2024 10/29/2024 10/29/2024 9:34 PM EDT documented as of this encounter Care Teams Butcher Meat Relationship Specialty Start Date End Date Kraig Lenz MD [address] [place] [address] PCP - General Family Medicine 11/28/21 Jenn Qureshi, RN [address] [facility] [place] [address] Specialty Lining Vamper Hematology/Oncology 05/27/23 Abdirashid Anderson MD [address] [facility] [place] [address] Physician Hematology/Oncology 05/27/23 Tamia Martinez APRN.SENIOR INDUSTRIAL ENGINEER [address] [facility] [place] [address] Nurse Practitioner Hematology/Oncology 05/27/23 documented as of this encounter
--- OUTSIDE RECORDS SUMMARY | 2024-10-30 17:54 | XMS_ITS | Encounter Summary ---
Author Organization [facility] Address [address] [place] [address] Care Team Providers Care Nursing Assoc Name Role Phone Kraig Lenz MD Primary Care Provider [phone] Jenn Qureshi RN Unavailable [phone] Abdirashid Anderson MD Unavailable [phone] Tamia Martinez APRN.ENROLLMENT MANAGEMENT COORDINATOR Unavailable [phone] Source Comments In the event this information is protected by the Federal Confidentiality of Alcohol and Drug AbusePatient Records regulations: The Federal rules restrict any use of the information to criminally investigate or prosecute any alcohol or drug abuse patient.[facility] Encounter Details Date Type Department Care Team (Latest Contact Info) Description 10/29/2024 Travel Social History Tobacco Use Types Packs/Day Years [...] Score (1-100), lower number is lower ri 81 08/31/2022 State Score (1-10), lower number is lower risk 7 08/31/2022 Data from: https://www.neighborhoodatlas.medicine.[facility]/. Last address used for calculation [address] [...] Entry Date Author No 01/12/2022 10:35 AM KITTYT Yudith Osullivan RN documented in this encounter Plan of Treatment Upcoming Encounters Date Type Department Care Team (Latest Contact Info) Description 11/05/2024 11:40 AM EDT [facility] Hematology/Oncology [address] [place] [address] [place] [address] Abdirashid Anderson MD [address] [place] [address] Harmon 11/10/2024 11:30 AM EDT Office Visit General Surgery [address] [facility] [address] [place] [address] [place] [address] [facility] [address] [place] [address] New; increase liver lesion size - ref by Dr. Anderson *schedule on documented as of this encounter Visit Diagnoses Not on filedocumented in this encounter Additional Health Concerns Infection Onset Date Last Indicated Resolved Time COVID-19 Rule-Out 10/29/2024 10/29/2024 10/29/2024 9:34 PM EDT documented as of this encounter Care Teams Nursing Assoc Relationship Specialty Start Date End Date Kraig Lenz MD [address] [place] [address] PCP - General Family Medicine 11/28/21 Jenn Qureshi, CHRISTOPHER [address] [facility] [place] [address] Specialty Regional Coordinator Hematology/Oncology 05/27/23 Abdirashid Anderson MD [address] [place] [address] Physician Hematology/Oncology 05/27/23 Tamia Martinez APRN.ENROLLMENT MANAGEMENT COORDINATOR [address] [place] [address] Nurse Practitioner Hematology/Oncology 05/27/23 documented as of this encounter
--- OUTSIDE RECORDS SUMMARY | 2024-10-30 17:54 | XMS_ITS ---
Author Organization [facility] Address [address] [place] [address] Care Team Providers Care Billing Machine Operator Name Role Phone Kraig Lenz MD Primary Care Provider [phone] Jenn Qureshi RN Unavailable [phone] Abdirashid Anderson MD Unavailable [phone] Tamia Martinez SIGN OUT CLERK.STOCK BROKER Unavailable [phone] Active Problems Problem Noted Date Diagnosed Date [...] reflux disease) Hypothyroidism Hx of sleep apnea Current Treatment and Therapy Plans AMB HYDRATION - NS 1000ML IV - ONCE* Plan Start Date:06/04/2024 Plan Provider:Abdirashid Anderson MD Linked Problems Adenocarcinoma of left breas t metastatic to liver (HCC)Dehydration Treatment Medications No medications scheduled. AMB SACITUZUMAB GOVITECAN 10 D1,8 - Q21D* Plan Start Date:10/14/2024 Plan Provider:Abdirashid Anderson MD Linked Problems Adenocarcinoma of left breas t metastatic to liver (HCC) Treatment Medications Current Day (Day 1 , Cycle 1 - Planned for 10/14/2024) Next Day (Day 8, Cycle 1 - Planned for 10/21/2024) fosaprepitant (EMEND)palonosetron (ALOXI)sacituzumab govitecan-hziy iv piggyback in NaCl 0.9% (TRODELVY) fosaprepitant 150 mg in NaCl 0.9% 250 mL (EMEND)palonosetron 0.25 mg injection (ALOXI)sacituzumab govitecan-hziy 824 mg in NaCl 0.9% 82.4 mL (TRODELVY) fosaprepitant 150 mg in NaCl 0.9% 250 mL (EMEND)palonosetron 0.25 mg injection (ALOXI)sacituzumab govitecan-hziy 824 mg in NaCl 0.9% 82.4 mL (TRODELVY) Other Current Plans CYANOCOBALAMIN 1000 D1,29,57 - Q84D* Plan Start Date:08/09/2023 Plan Provider:Abdirashid Anderson MD Linked Problems Megaloblastic anemia due to vitamin B12 deficiency Treatment Medications Current Day (Day 5 7, Cycle 5 - Planned for 11/25/2024) Next Day (Day 1, Cycle 6 - Planned for 12/23/2024) No medications scheduled. No medications schedul ed. No medications scheduled. Past Treatment and Therapy Plans NON-CHEMO 2 Plan Name Start Date Discontinue Date Treatment Medications Discontinue Reason Plan Provider Cycles AMB HYDRATION - NS 1000ML IV - ONCE 10/24/2023 05/05/2024 No medications scheduled. Other Abdirashid Anderson MD 3 of 5 cycles started Resolved Problems Problem Noted Date Diagnosed Date Resolved Date Malignant neoplasm of areola of left breast in female, estrogen receptor negative 03/16/2022 Chronic kidney disease 06/23
--- OUTSIDE RECORDS SUMMARY | 2024-10-30 17:54 | XMS_ITS | Encounter Summary ---
Author Organization [facility] Address [address] [place] [address] Care Team Providers Care Strip Stamp Straightener Name Role Phone Kraig Lenz MD Primary Care Provider + Jenn Qureshi RN Unavailable [phone] Abdirashid Anderson MD Unavailable [phone] Tamia Martinez APRN.TEXTILE ENGINEER Unavailable [phone] Source Comments In the event this information is protected by the Federal Confidentiality of Alcohol and Drug AbusePatient Records regulations: The Federal rules restrict any use of the information to criminally investigate or prosecute any alcohol or drug abuse patient.[facility] Reason for Visit * Reason Comments Care Coordination ER follow up call Encounter Details Date Type Department Care Team (Late st Contact Info) Description 10/30/2024 Telephone Hematology/Oncology [address] [place] [address] Rosetta Hawkins RN [address] [place] [address] Care Coordination (ER follow up call) Social History Tobacco Use Types Packs/Day Years [...] is lower risk 7 08/31/2022 Data from: https://www.neighborhoodatlas.[facility]/. Last address used for calculation [...] encounter Miscellaneous Notes * Telephone Encounter - Rosetta Hawkins RN - 10/30/2024 11:28 AM EDT EMERGENCY ROOM CALL BACK Today's date: October 30, 2024 Patient identified by name and date of . YES Primary Cancer Diagnosis: breast and liver cancer Reason for Emergency Room Visit: fever Time of day presented to Emergency Room evening If Sat-Saturday during business hours: N/A Patient with any new symptom issues: No Psychosocial Risk Factors: None FOLLOW UP Patient reminded of her [facility] provider, Dr Harmon virtual visit on 11/05: No Next Loop Tender outreach with patient scheduled? As needed Discussed with patient how she is feeling. Pt states she still feels feverish, but hasn't checked her temp. States she took tylenol at 0830 this morning with relief. Pt states she just got home from her MRI at [place] so she's pretty tired. is at the pharmacy now picking up pt's antibiotics. Instructed pt to proceed to the ER over the weekend if her s/s persist. Verbalized understanding. PATIENT EDUCATION/REINFORCEMENT Patient verbalizes understanding of when to seek Medical Attention? YES Patient verbalizes understanding of after hours and weekend phone number? YES Patient verbalizes understanding of next outreach appointment? YES Rosetta Hawkins RN documented in this encounter Plan of Treatment Upcoming Encounters Date Type Department Care Team (Latest Contact Info) Description 11/05/2024 11:40 AM EDT [facility] Hematology/Oncology [address] [place] [address] Abdirashid Anderson MD [address] [place] [address] Harmon 11/10/2024 11:30 AM EDT Office Visit General Surgery [address] [address] [place] [address] [address] [facility] [address] [place] [address] New; increase liver lesion size - ref by Dr. Anderson *schedule on documented as of this encounter Visit Diagnoses Not on filedocumented in this encounter Care Teams Strip Stamp Straightener Relationship Specialty Start Date End Date Kraig Lenz MD [address] [place] [address] PCP - General Family Medicine 11/28/21 Jenn Qureshi, CHRISTOPHER [address] [place] [address] Specialty Loop Tender Hematology/Oncology 05/27/23 Abdirashid Anderson MD [address] [place] [address] Physician Hematology/Oncology 05/27/23 Tamia Martinez APRN.TEXTILE ENGINEER [address] [place] [address] Nurse Practitioner Hematology/Oncology 05/27/23 documented as of this encounter
--- OUTSIDE RECORDS SUMMARY | 2024-10-30 17:54 | XMS_ITS | Encounter Summary ---
Author Organization [employer] [facility] tem Address [id number] [address] [place] [address] Care Team Providers Care Arts Therapist Name Role Phone Kraig Lenz MD Primary Care Provider [phone] Encounter Details Date Type Department Care Team (Late st Contact Info) Description 12/05/2021 [facility]phone [facility] [address] [place] [id number] Deirdre Stanford MA Social History Tobacco Use Types Packs/Day Years [...] have Coronavirus / COVID-19? No / Unsure 11/30/2021 1:52 PM EDT documented as of this encounter Miscellaneous Notes * Telephone Encounter - Deirdre Stanford MA - 12/05/2021 9:49 AM EDT Left message for patient to schedule an appointment with Dr. Marie. Patient does not want to continue care with Dr. Reyes (No error on Dr. Reyes part. Patients choice.) Patient needs a [address] Marie for metastatic disease. documented in this encounter Plan of Treatment Not on file documented as of this encounter Goals Goal Patient Goal Type Associated Problems Recent Progress Patient-Stated? Author home General Yes Yulia Redding, RN Note: Evaluation of progress towards goal: PT/OT consulted for discharge recommendations. Patient may need Home Health Care vs Correction Facility documented as of this encounter Visit Diagnoses Not on filedocumented in this encounter Additional Health Concerns Assessment Noted Time PHQ-9 Depression Total Score: 0 01/04/20 20 1:35 PM EDT documented as of this encounter Care Teams Arts Therapist Relationship Specialty Start Date End Date Kraig Lenz MD PCP - General Family Medicine 09/16/19 documented as of this encounter
--- OUTSIDE RECORDS SUMMARY | 2024-10-30 17:54 | XMS_ITS | Encounter Summary ---
Author Organization [facility] Address [address] [place] [address] Care Team Providers Care Internal Medicine Nurse Practitioner Name Role Phone Kraig Lenz MD Primary Care Provider [phone] Jenn Qureshi RN Unavailable [phone] Abdirashid Anderson MD Unavailable [phone] Tamia Martinez APRN.CARBON SETTER Unavailable [phone] Source Comments In the event this information is protected by the Federal Confidentiality of Alcohol and Drug AbusePatient Records regulations: The Federal rules restrict any use of the information to criminally investigate or prosecute any alcohol or drug abuse patient.[facility] Encounter Details Date Type Department Care Team (Late st Contact Info) Description 02/14/2022 [place] [address] Provider, Ccf Questionnaire Submission Social History Tobacco Use Types Packs/Day Years [...] In the last 10 days, have ashia u been in contact with someone who [...] Contact Info) Description 11/05/2024 11:40 AM EDT [facility] Hematology/Oncology [address] [place] [address] Abdirashid Anderson MD [address] [place] [address] [place] [address] Harmon 11/10/2024 11:30 AM EDT Office Visit General Surgery [address] [facility] [address] [place] [address] [place] [address] [address] [place] [address] New; increase liver lesion size - ref by Dr. Anderson *schedule on documented as of this encounter Visit Diagnoses Not on filedocumented in this encounter Additional Health Concerns Infection Onset Date Last Indicated Resolved Time COVID-19 Rule-Out 10/29/2024 10/29/2024 10/29/2024 9:34 PM EDT documented as of this encounter Care Teams Internal Medicine Nurse Practitioner Relationship Specialty Start Date End Date Kraig Lenz MD [address] [place] [address] PCP - General Family Medicine 11/28/21 Jenn Qureshi, CHRISTOPHER [address] [place] [address] Specialty Wave Guide Assembler Hematology/Oncology 05/27/23 Abdirashid Anderson MD [address] [place] [address] [place] [address] Physician Hematology/Oncology 05/27/23 Tamia Martinez APRN.CARBON SETTER [address] [facility] [place] [address] Nurse Practitioner Hematology/Oncology 05/27/23 documented as of this encounter
--- OUTSIDE RECORDS SUMMARY | 2024-10-30 17:54 | XMS_ITS | Encounter Summary ---
Author Organization [facility] Address [address] [place] [address] Care Team Providers Care Youth Liaison Officer Name Role Phone Kraig Lenz MD Primary Care Provider [phone] Jenn Qureshi RN Unavailable [phone] Abdirashid Anderson MD Unavailable [phone] Tamia Martinez APRN.PRODUCTION ARTIST Unavailable [phone] Source Comments In the event this information is protected by the Federal Confidentiality of Alcohol and Drug AbusePatient Records regulations: The Federal rules restrict any use of the information to criminally investigate or prosecute any alcohol or drug abuse patient.[facility] Encounter Details Date Type Department Care Team (Late st Contact Info) Description 06/04/2023 Patient [facility] HB-3 [address] [place] [address] [place] [address] Selvin approval Social History Tobacco Use Types Packs/Day Years Used Date Smoking Tobacco: Former Cigarettes 1 15 0 12/10/1980 - 12/11/1995 Passive Smoke Exposure: Past Smokeless Tobacco: Never Alcohol Use Standard Drinks/Week Comments No 0 (1 standard drink = 0.6 oz pur e alcohol) Area Deprivation Index Answer Date Jalen rded National Score (1-100), lower number is lower ri sk 81 08/31/2022 State Score (1-10), lower number is lower risk 7 08/31/2022 Data from: https://www.neighborhoodatlas.medicine.[facility]/. Last address used for calculation [address] [...] Contact Info) Description 11/05/2024 11:40 AM EDT [facility] Hematology/Oncology [address] [place] [address] [place] [address] Abdirashid Anderson MD [address] [facility] [address] Harmon 11/10/2024 11:30 AM EDT Office Visit General Surgery [address] [facility] [address] [place] [address] [place] [address] [facility] [address] [place] [address] New; increase liver lesion size - ref by Dr. Anderson *schedule on documented as of this encounter Visit Diagnoses Not on filedocumented in this encounter Additional Health Concerns Infection Onset Date Last Indicated Resolved Time COVID-19 Rule-Out 10/29/2024 10/29/2024 10/29/2024 9:34 PM EDT documented as of this encounter Care Teams Youth Liaison Officer Relationship Specialty Start Date End Date Kraig Lenz MD [address] [place] [address] PCP - General Family Medicine 11/28/21 Jenn Qureshi, CHRISTOPHER [address] [facility] [place] [address] Specialty Denture Finisher Hematology/Oncology 05/27/23 Abdirashid Anderson MD [address] [place] [address] Physician Hematology/Oncology 05/27/23 Tamia Martinez APRN.PRODUCTION ARTIST [address] [facility] [address] [place] [place] [address] Nurse Practitioner Hematology/Oncology 05/27/23 documented as of this encounter
--- OUTSIDE RECORDS SUMMARY | 2024-10-30 17:54 | XMS_ITS | Encounter Summary ---
Author Organization [facility] Address [id number] [address] [place] [address] Care Team Providers Care Manager Wholesale Name Role Phone Kraig Lenz MD Primary Care Provider [phone] Reason for Visit * Reason Comments Med Refill Encounter Details Date Type Department Care Team (Late st Contact Info) Description 10/20/2024 Refill [facility] General Surgery [address] [place] [address]. [address] [place] [address] Kelly Kimball PA [address] [place] [address], [address] [place] [address] Altered bowel habits Social History Tobacco Use Types Packs/Day Years [...] Patient may need Home Health Care vs Senior Living Facility documented as of this encounter Visit Diagnoses Diagnosis Altered bowel habits documented in this encounter Additional Health Concerns Assessment Noted Time PHQ-9 Depression Total Score: 0 01/04/20 20 1:35 PM EDT documented as of this encounter Care Teams Manager Wholesale Relationship Specialty Start Date End Date Kraig Lenz MD PCP - General Family Medicine 09/16/19 documented as of this encounter
--- OUTSIDE RECORDS SUMMARY | 2024-10-30 17:54 | XMS_ITS | Encounter Summary ---
Author Organization [facility] Address [address] [place] [address] Care Team Providers Care Tanker Serviceman Name Role Phone Kraig Lenz MD Primary Care Provider [phone] Jenn Qureshi RN Unavailable [phone] Abdirashid Anderson MD Unavailable [phone] Tamia Martinez APRN.CUSTOMER QUALITY SPECIALIST Unavailable [phone] Source Comments In the event this information is protected by the Federal Confidentiality of Alcohol and Drug AbusePatient Records regulations: The Federal rules restrict any use of the information to criminally investigate or prosecute any alcohol or drug abuse patient.[facility] Encounter Details Date Type Department Care Team (Late st Contact Info) Description 05/30/2023 Patient [facility] [address] [place] [address] [place] [address] Reminder for needed financials Social History Tobacco Use Types Packs/Day Years [...] is lower risk 7 08/31/2022 Data from: https://www.neighborhoodatlas.medicine.[facility]/. Last address used for calculation [...] Contact Info) Description 11/05/2024 11:40 AM EDT [facility] Hematology/Oncology [address] [place] [address] Abdirashid Anderson MD [address] [facility] [place] [address] Harmon 11/10/2024 11:30 AM EDT Office Visit General Surgery [address] [facility] [address] [place] [address] [place] [address] [facility] [address] [place] [address] New; increase liver lesion size - ref by Dr. Anderson *schedule on documented as of this encounter Visit Diagnoses Not on filedocumented in this encounter Additional Health Concerns Infection Onset Date Last Indicated Resolved Time COVID-19 Rule-Out 10/29/2024 10/29/2024 10/29/2024 9:34 PM EDT documented as of this encounter Care Teams Tanker Serviceman Relationship Specialty Start Date End Date Kraig Lenz MD [address] [place] [address] PCP - General Family Medicine 11/28/21 Jenn Qureshi, CHRISTOPHER [address] [place] [address] [place] [address] Specialty Board Liner Operator Hematology/Oncology 05/27/23 Abdirashid Anderson MD [address] [place] [address] [place] [address] Physician Hematology/Oncology 05/27/23 Tamia Martinez APRN.CUSTOMER QUALITY SPECIALIST [address] [place] [address] [place] [address] Nurse Practitioner Hematology/Oncology 05/27/23 documented as of this encounter
--- OUTSIDE RECORDS SUMMARY | 2024-10-30 17:54 | XMS_ITS | Encounter Summary ---
Author Organization [facility] Address [address] [place] [address] Care Team Providers Care Over Hauler Helper Name Role Phone Kraig Lenz MD Primary Care Provider + Jenn Qureshi RN Unavailable [phone] Abdirashid Anderson MD Unavailable [phone] Tamia Martinez SUPERVISOR POULTRY PROCESSING.SPRING TACKER Unavailable [phone] Source Comments In the event this information is protected by the Federal Confidentiality of Alcohol and Drug AbusePatient Records regulations: The Federal rules restrict any use of the information to criminally investigate or prosecute any alcohol or drug abuse patient.[facility] Encounter Details Date Type Department Care Team (Late st Contact Info) Description 10/21/2024 Orders Only Hematology/Oncology [address] [place] [address] Tamia Martinez APRN.SPRING TACKER [address] [place] [address] Social History Tobacco Use Types Packs/Day Years [...] is lower risk 7 08/31/2022 Data from: https://www.neighborhoodatlas.[facility]/. Last address used for calculation [address] [...] Description 11/05/2024 11:40 AM EDT [facility] Hematology/Oncology [address] [facility] [place] [address] Abdirashid Anderson MD [address] [facility] [place] [address] Harmon 11/10/2024 11:30 AM EDT Office Visit General Surgery [address] [place] [address] [place] [address] [place] [address] New; increase liver lesion size - ref by Dr. Anderson *schedule on documented as of this encounter Visit Diagnoses Not on filedocumented in this encounter Care Teams Over Hauler Helper Relationship Specialty Start Date End Date Kraig Lenz MD [address] [place] [address] PCP - General Family Medicine 11/28/21 Jenn Qureshi, CHRISTOPHER [address] [facility] [place] [address] Specialty Resource Room Teacher Hematology/Oncology 05/27/23 Abdirashid Anderson MD [address] [facility] [place] [address] Physician Hematology/Oncology 05/27/23 Tamia Martinez, RAF.SPRING TACKER [address] [facility] [place] [address] Nurse Practitioner Hematology/Oncology 05/27/23 documented as of this encounter
--- OUTSIDE RECORDS SUMMARY | 2024-10-30 17:55 | XMS_ITS | Patient Health Record ---
Author Organization [facility] in [place] Address [address] [place] [address] Care Team Providers Care Coffee Brewer Name Role Phone Shahid Lenz Primary Care Provider Allergies Allergen (clinical drug ingredient) Drug/Non Drug Allergy documented on EMR Reaction Allergy Type Onset Date Status ciprofloxacin Cipro Unknown Drug Allergy Act ely Levaquin Unknown Drug Allergy Active Substance with sulfonamide structure and antibacterial mechanism of action (substance) Sulfa Antibiotics Unknown Drug Allergy Active pravastatin Pravastatin Unknown Drug Allergy Act ely Results Component Value Reference Range Notes FREE T3 Reviewed date:12/11/2023 05:50:32 PM Interpretation: Performing Lab:[facility] ([facility]), [address] [place], [place] [address]., [address] [place] [address]. [address] PH:[phone] Notes/Report: FREE T3 3.30 2.50-3.90 pg/mL PERFORMED AT [address] [place] [address] THYROID PROFILE Reviewed date:12/11/2023 05:50:32 PM Interpretation: Performing Lab:[facility] ([facility]), [address] [place], [place] [address]., [address] [address] PH:[phone] Notes/Report: TSH 0.88 0.49-4.67 uIU/mL FREE T4 1.15 0.61-1.60 ng/dL PERFORMED AT [address] [place] [address] Reason For Referral No Information Medications Medication SIG (Take, Route, Frequency, Duration) Notes Start Date End Date Status Scopolamine HBr - apply .2- .3ml behind ear topical Q8hr for 10 days scopolamine cream .25 mg per 0.1 ml Active Melatonin-Lemon [place] 10-1000 MG-MCG as directed Orally Active Adult Aspirin Regimen 81 MG 1 tablet Orally Once a day Active Ciprofloxacin HCl 500 MG 1 tablet Orally every 12 hrs for 10 days 05/06/2024 Active Rosuvastatin Calcium 5 MG TAKE 1 TABLET BY MOUTH DAILY for 90 Active Metoprolol Tartrate 25 MG TAKE 1 TABLET BY MOUTH TWICE A DAY for 90 days Active Benzonatate 200 MG 1 capsule Orally Three times a day for 7 days 04/22/2023 Active traMADol HCl 50 MG 1 tablet as needed Orally 4 times a day for 7 days G62.9 09/10/2022 Active Levothyroxine Sodium 200 MCG TAKE 1 TABLET BY MOUTH EVERY DAY IN THE MORNING ON AN EMPTY STOMACH FOR 30 DAYS for 90 days Active DULoxetine HCl 60 MG TAKE ONE CAPSULE BY MOUTH DAILY for 90 days Active Vitamin D3 50 MCG (1999 UT) TAKE 1 TABLET BY MOUTH DAILY for 90 Active Lansoprazole 30 MG TAKE 1 CAPSULE BY MOUTH DAILY for 90 days Active tiZANidine HCl 4 MG 2 tablets Orally at bedtime for 90 days 07/26/2022 Active Lynparza 150 MG 2 tablets Orally Twice a day for 30 day(s) 12/10/2023 Active Meclizine HCl 25 MG 1 tablet as needed Orally every 12 hrs Active Xifaxan 550 MG 1 tablet Orally every 8 hrs for 14 04/04/2023 Active Zofran Active Social History Tobacco Use: Social History Observation Description Date Details (start date - stop date) Former Smoker 03/25/1973 - 03/25/1995 Tobacco Use/Smoking Question Answer Notes Patient is a former smoker When did you start smoking? 03/25/1973 When did you stop smoking? 03/25/1995 How long has it been since you last smoked? > 10 years Alcohol Screen (Audit-C) Question Answer Notes Did you have a drink containing alcohol in the p ast year? 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 confirmed Problem Overweight (362493518) Overweight (E66.3) Active confirmed Problem Essential tremor (645402440) Essential tremor (G25.0) Active confirmed Problem Cellulitis of chest wall (14179544) Cellulitis of chest wall (L03.313) Active confirmed Problem 777611075 Unspecified thor acic, thoracolumbar and lumbosacral intervertebral disc disorder (M51.9) Active confirmed Problem Colostomy present (526968795) Colostomy status (Z93.3) Active confirmed Problem Hypertension (02208126) Hypertension (I10) Active confirmed Problem Gastroesophageal reflux disease (285925552) GERD (gastroesophageal reflux disease) (K21.9) Active confirmed Problem Peripheral neuropath y (975217471) Peripheral neuropathy (G62.9) Active confirmed Problem Well adult (930519642) Well adult (Z00.00) Active confirmed Problem Degenerative disc disease (67693783) DDD (degenerative disc disease), lumbar (M51.36) Active confirmed Problem Pyelonephritis (34222666) Pyelonephritis (N12) Active confirmed Problem Bilateral mastectomy (23518358) H/O bilateral mastectomy (Z90.13) Active confirmed Problem Acute bronchiolitis (6373566) Acute bronchiolitis (J21.9) Active confirmed Problem Irritable bowel (10342439) Irritable bowel (K58.9) Active confirmed Problem Kidney mass (429717249) Kidney mass (N28.89) Active confirmed Problem Malignant neoplasm o f female breast (208527245) Invasive ductal carcinoma of breast, left (C50.912) Active confirmed Problem Peripheral vertigo (26307103) Vertigo, peripheral (H81.399) Active confirmed Problem Hypercholesterolemia (40131308) Hypercholesterolemia (E78.00) Active confirmed Problem Biliary anastomotic leak (998962357) Biliary anastomotic leak (K91.89) Active confirmed Problem Partial small bowel obstruction (687082216) Partial small bowel obstruction (K56.600) Active confirmed Problem Intestinal anastomosis present (549679907) Intestinal anastomosis present (Z98.0) Active confirmed Problem Disease caused by Severe acute respiratory syndrome coronavirus 2 (disorder) (336131842) COVID-19 virus infection (U07.1) Active confirmed Problem Cough (finding) (27651294) Cough, unspecified (R05.9) Active confirmed Vital Signs Blood pressure diastolic 72 mm Hg 05/06/2024 Height 64 in 05/06/2024 Blood pressure systolic 120 mm Hg 05/06/2024 Weight 179.60 lbs 05/06/2024 BMI 30.82 kg/m2 05/06/2024 Encounters Encounter Location Date Provider Diagnosis [facility] [address] [facility] [address] 12/11[facility]2023 [facility] [address] [place] [address] 04/30/2024 [facility] [address] [place] [address] 11/15/2023 [facility] [address] [facility] [address] 12/10/2023 [facility] [address] [place] [address] 12/10/2023 Shahid Bowmany Hypothyroidism, unsp ecified E03.9 ; Hair loss L65.9 and Fatigue R53.83 [facility] [address] [place] [address] 12/11/2023 [facility] [address] [facility] [address] 05/06/2024 Shahid Hoy Hypothyroidism, unsp ecified E03.9 ; Hypertension I10 ; Hypercholesterolemia E78.00 ; GERD (gastroesophageal reflux disease) K21.9 and Fatigue R53.83 Assessments Encounter Date Diagnosis (ICD Code) Assessment Notes Treatment Notes Treatment Clinical Notes Section Notes 05/06/2024 Hypothyroidism, unspecified (ICD-10 - E03.9) 05/06/2024 Hypertension (ICD-10 - I10) 12/10/2023 Hypothyroidism, unspecified (ICD-10 - E03.9) 12/10/2023 Hair loss (ICD-10 - L65.9) 12/10/2023 Fatigue (ICD-10 - R53.83) 05/06/2024 Hypercholesterolemia (ICD-10 - E78.00) 05/06/2024 GERD (gastroesophage al reflux disease) (ICD-10 - K21.9) 05/06/2024 Fatigue (ICD-10 - R53.83) Plan Of Treatment Pending Test Test Name Order Date CMP (COMPLETE METABOLIC PANEL) 4 CMP (COMPLETE METABOLIC PANEL) 4 HEMOGLOBIN A1C (GLYCO) 04/04/2023 HEMOGLOBIN A1C (GLYCO) 05/06/2024 IRON, TOTAL 05/06/2024 IRON, TOTAL 04/04/2023 LIPID PANEL (CHOL/TRIG/HDL/LDL) 04/04/19 24 LIPID PANEL (CHOL/TRIG/HDL/LDL) 05/06/19 25 CBC WITH DIFF 05/06/2024 CBC WITH DIFF 04/04/2023 VITAMIN D, 25 LEVEL (TOTAL) 04/04/2023 VITAMIN D, 25 LEVEL (TOTAL) 05/06/2024 T3 FREE, T4 FREE and TSH 08/23/2023 T3 FREE, T4 FREE and TSH 08/27/2023 Insulin Level 05/06/2024 Insulin Level 04/04/2023 STOOL OCCULT BLOOD 04/04/2023 CBC AUTO DIFF 08/23/2023 THYROID PROFILE WITH TSH 08/08/2022 THYROID PANEL (T4/TSH/FREE T3) 4 THYROID PANEL (T4/TSH/FREE T3) 4 THYROID PANEL (T4/TSH/FREE T3) 4 THYROID PANEL (T4/TSH/FREE T3) 5 CMP (COMP MET WING) w/eGFR CKD-EPI 2024 Insurance Providers Payer Name Payer Address Payer Phone Subscriber Number Group Number Insured Name Patient Relationship to Insured Coverage Start Date Coverage End Date [place] [address] [place] [address] [id number] Nicki Valverde Self - patient is the insured [employer] [address] [place] [id number] Nicki Valverde Self - patient is the insured Medications Administered Medication Instructions Date of Administration Dosage Notes Cyanocobalamin 05/06/2024 1 mL Medical (General) History Medical History History ICD Code Overweight E66.3 COVID-19 virus infection U07.1 Cough, unspecified R05.9 H/O bilateral mastectomy Z90.13 Vertigo, peripheral H81.399 Cellulitis of chest wall L03.313 Intestinal anastomosis present Z98.0 Essential tremor G25.0 Peripheral neuropathy G62.9 Gastro-esophageal reflux disease without esophagitis K21.9 Other viral warts B07.8 Kidney mass N28.89 Invasive ductal carcinoma of breast, lef t C50.912 DDD (degenerative disc disease), lumbar M51.36 Well adult Z00.00 Colostomy status Z93.3 Pyelonephritis N12 Partial small bowel obstruction K56.600 Biliary anastomotic leak K91.89 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
--- NOTE | 2024-10-30 18:03 | XR_ITS ---
The [address] [address] Patient Name: RADHIKA AMEZQUITA MRN: [id number] date: 1955 Sex: F Assigned Patient Location: ER Current Patient Location: ED.MAIN Accession/Order Number: [id number] Exam Date: 10/30/2024 18:59 Report Date: 10/30/2024 19:00 At the request of: HEATHER MUNIZ MD Procedure: XR chest 1V PA CHEST: CLINICAL HISTORY: fever, hx liver ca COMPARISON: None Mildly enlarged cardiomediastinal silhouette. Minor perihilar vascular congestion.. Lungs are grossly clear. No effusion or pneumothorax. XR/XR chest 1V IMPRESSION: Negative for acute pleural-parenchymal disease. Impression dictated by: Thanh Cline M.D. 10/30/2024 7:00 PM Dictation Location: [place] [address] Electronically authenticated by: [id number] Y Date: 10/30/2024 19:00
--- NOTE | 2024-10-30 18:05 | ED.GENADUL1 ---
HPI HPI - General Adult General Chief complaint: Fever Stated complaint: FEVER Time Seen by Provider: 10/30/24 17:43 Source: patient Mode of arrival: Wheelchair Limitations: no limitations History of Present Illness HPI narrative: 69-year-old female presents for fever. Began yesterday and she was seen at another emergency department, [facility], last night. She has a history of liver cancer and is on oral chemotherapeutic agent. She was discharged home on 2 antibiotics, Augmentin and Zithromax. She was told by her oncologist today that if her fever persisted that she should be going to the emergency department again today. She has not had any medication for her fever in about 8 hours and she presents with fever. She does not have any specific symptoms such as dysuria or cough. Related Data Home Medications ?Medication ?Instructions ?Recorded ?Confirmed amoxicillin 875 mg-potassium 1 tab PO BID 10/30/24 10/30/24 clavulanate 125 mg tablet azithromycin 250 mg tablet 250 mg PO DAILY 10/30/24 10/30/24 Allergies Allergy/AdvReac Type Severity Reaction Status Date / Time Sulfa (Sulfonamide Allergy Severe icthy Verified 10/30/24 17:45 Antibiotics) Opioid HPI Opioid Management Most Recent Opioid Data: Last Pain Scale 7 Today, 18:26 Review of Systems ROS Narrative A ten point review of systems is negative except as noted above. PFSH PFSH Social History Little interest or pleasure in doing things: not at all Feeling down, depressed, or hopeless: not at all Exam Narrative Exam Narrative: Nurses note and vital signs reviewed and patient is not hypoxic. General: The patient appears well and in no apparent distress. Patient is resting comfortably on cart. Skin: Warm, dry, no pallor noted. There is no rash noted. Head: Normocephalic, atraumatic Eye: Normal conjunctiva, no drainage Ears, Nose, Mouth, and Throat: oral mucosa is moist. Nares patent. Cardiovascular: Regular Rate and Rhythm Respiratory: Patient is in no distress, no accessory muscle use, lungs are clear to auscultation, no wheezing, rales or rhonchi Back: non-tender GI: Soft and nontender Musculoskeletal: The patient has no evidence of calf tenderness, no pitting edema, symmetrical pulses noted bilaterally Neurological: A&O normal speech Psychiatric: Cooperative Constitutional Vital Signs, click to edit/add: Last Vital Signs Temp 102.9 F H 10/30/24 17:47 Pulse 114 H 10/30/24 17:47 Resp 20 10/30/24 17:47 BP 148/60 H 10/30/24 17:47 Pulse Ox 98 10/30/24 18:25 O2 Del Method Room Air 10/30/24 18:25 Course Vital Signs Vital signs: Vital Signs Temperature 102.9 F H 10/30/24 17:47 Pulse Rate 114 H 10/30/24 17:47 Respiratory Rate 20 10/30/24 17:47 Blood Pressure 148/60 H 10/30/24 17:47 Pulse Oximetry 95 10/30/24 17:47 Oxygen Delivery Method Room Air 10/30/24 17:47 Temperature 102.9 F H 10/30/24 17:47 Pulse Rate 114 H 10/30/24 17:47 Respiratory Rate 20 10/30/24 17:47 Blood Pressure 148/60 H 10/30/24 17:47 Pulse Oximetry 98 10/30/24 18:25 Oxygen Delivery Method Room Air 10/30/24 18:25 Medical Decision Making MDM Narrative Medical decision making narrative: Workup is ordered and the patient is signed out to Dr. Allen at change of shift. Differential Diagnosis Differential Diagnosis: Viral illness, pneumonia, UTI Lab Data Lab results reviewed: Yes I reviewed the patient's lab results Labs: Lab Results 10/30/24 10/30/24 Range/Units 18:18 18:22 WBC 4.9 (4.0-11.0) 10^3/uL RBC 2.77 L (4.20-5.40) 10^6/uL Hgb 10.9 L (12.0-16.0) g/dL Hct 30.9 L (36.0-48.0) % MCV 111.6 H (81.0-99.0) fL MCH 39.4 H (26.7-34.0) pg MCHC 35.3 H (29.9-35.2) g/dL RDW 15.8 H (11.0-15.0) % Plt Count 132 L (150-450) 10^3/uL MPV 9.6 (9.5-13.5) fL SARS-CoV-2 Ag (CV2AG) Negative (NEGATIVE) Discharge Plan Discharge Patient Disposition: Still a Patient
[2024-10-30 18:25] VITALS: O2SAT 98
[2024-10-30 18:27] LABS: Hematocrit 30.9 % (36.0-48.0); Hemoglobin 10.9 g/dL (12.0-16.0); Mean Corpuscular HGB Conc 35.3 g/dL (29.9-35.2); Mean Corpuscular Hemoglobin 39.4 pg (26.7-34.0); Mean Corpuscular Volume 111.6 fL (81.0-99.0); Platelet Count 132 10^3/uL (150-450); Red Blood Count 2.77 10^6/uL (4.20-5.40); White Blood Count 4.9 10^3/uL (4.0-11.0)
[2024-10-30 18:39] LABS: SARS-CoV-2 Ag NEGATIVE (NEGATIVE)
[2024-10-30 18:51] LABS: Alanine Aminotransferase 107 U/L (14-59); Albumin Globulin Ratio 0.9; Albumin Level 3.2 g/dL (3.4-5.0); Alkaline Phosphatase 99 U/L (46-116); Amylase 7 U/L (25-115); Anion Gap 10.8; Aspartate Amino Transferase 78 U/L (15-37); Blood Urea Nitrogen 12.0 mg/dL (7.0-18.0); Calcium 8.9 mg/dL (8.5-10.1); Carbon Dioxide 26.8 mmol/L (21.0-32.0); Chloride 103 mmol/L (98-107); Estimated GFR (African America >60 (>=60 mL/min/1.73m^2); Estimated GFR (Non-African Ame >60 (>=60 mL/min/1.73m^2); Globulin 3.4 g/dL; Glucose 156 mg/dL (74-106); Lipase <10.0 U/L (16.0-77.0); Potassium 3.6 mmol/L (3.5-5.1); Sodium 137 mmol/L (136-145); Total Protein 6.6 g/dL (6.4-8.2)
[2024-10-30] MEDS: ACETAMINOPHEN 325 MG TABLET 650 MG PO (19:01)
[2024-10-30 19:02] VITALS: PULSE 118; O2SAT 96
[2024-10-30 19:02] LABS: Lactate/Lactic Acid 2.1 mmol/L (0.4-2.0)
[2024-10-30 19:07] LABS: Anisocytosis 1+; Basophils Abs Manual 0.00 10^3/uL (0.00-0.10); Basophils Percent Manual 0.0 % (0.2-2.0); Eosinophils Absolute Manual 0.00 10^3/uL (0.00-0.70); Eosinophils Percent Manual 0.0 % (0.9-7.0); Lymphocytes Absolute Manual 0.04 10^3/uL (1.20-3.80); Lymphocytes Percent Manual 1.0 % (20.5-60.0); Macrocytosis 2+; Monocytes Absolute Manual 0.14 10^3/uL (0.30-0.80); Monocytes Percent Manual 3.0 % (1.7-12.0); Segmented Neut Absolute Manual 4.70 10^3/uL (1.4-6.5); Segmented Neutrophils % Manual 96.0 (43.0-75.0)
[2024-10-30 19:34] LABS: Glucose Urine UA NEGATIVE (NEGATIVE)
[2024-10-30] MEDS: 0.9 % SODIUM CHLORIDE 1,000 ML 1000 ML IV (19:37)
[2024-10-30] MEDS: HYDROMORPHONE HCL 1 MG/ML CARTRIDGE IV (19:37)
[2024-10-30 19:39] LABS: Cast Seen? NONE SEEN #/LPF (NONE SEEN); Crystals Seen? None Seen #/HPF (None Seen); Urine Culture Indicated NO
[2024-10-30 20:45] VITALS: BP 120/62; PULSE 96; TEMP 37.1; O2SAT 93
[2024-10-30] MEDS: VANCOMYCIN HCL 1,000 MG in 0.9 % SODIUM CHLORIDE 250 ML 250 MG IV (20:47)
[2024-10-30 21:30] LABS: Lactate/Lactic Acid 0.9 mmol/L (0.4-2.0)
--- NOTE | 2024-10-30 21:49 | ED.GENADUL1 ---
HPI HPI - General Adult General Chief complaint: Fever Stated complaint: FEVER Time Seen by Provider: 10/30/24 17:43 Source: patient Mode of arrival: Wheelchair Limitations: no limitations Related Data Home Medications ?Medication ?Instructions ?Recorded ?Confirmed amoxicillin 875 mg-potassium 1 tab PO BID 10/30/24 10/30/24 clavulanate 125 mg tablet azithromycin 250 mg tablet 250 mg PO DAILY 10/30/24 10/30/24 Allergies Allergy/AdvReac Type Severity Reaction Status Date / Time Sulfa (Sulfonamide Allergy Severe icthy Verified 10/30/24 17:45 Antibiotics) Opioid HPI Opioid Management Most Recent Opioid Data: Last Pain Scale 7 Today, 18:26 PFSH PFSH Social History Little interest or pleasure in doing things: not at all Feeling down, depressed, or hopeless: not at all Exam Constitutional Vital Signs, click to edit/add: Last Vital Signs Temp 98.8 F 10/30/24 20:45 Pulse 96 H 10/30/24 20:45 Resp 20 10/30/24 20:45 BP 120/62 10/30/24 20:45 Pulse Ox 93 L 10/30/24 20:45 O2 Del Method Room Air 10/30/24 20:45 Course Vital Signs Vital signs: Vital Signs Temperature 102.9 F H 10/30/24 17:47 Pulse Rate 114 H 10/30/24 17:47 Respiratory Rate 20 10/30/24 17:47 Blood Pressure 148/60 H 10/30/24 17:47 Pulse Oximetry 95 10/30/24 17:47 Oxygen Delivery Method Room Air 10/30/24 17:47 Temperature 98.8 F 10/30/24 20:45 Pulse Rate 96 H 10/30/24 20:45 Respiratory Rate 20 10/30/24 20:45 Blood Pressure 120/62 10/30/24 20:45 Pulse Oximetry 93 L 10/30/24 20:45 Oxygen Delivery Method Room Air 10/30/24 20:45 Medical Decision Making MDM Narrative Medical decision making narrative: Patient was signed out to me by Dr. Toth. Patient has been worked up for fever in the setting of liver cancer on oral chemotherapy. On my assessment of the patient, her vital signs are stable. Her fevers defervesced with oral acetaminophen. Other than complaints of generalized body aches and fatigue, she has no other complaints at this time. Her workup was significant for mild transaminitis and hyperbilirubinemia which is related to her liver cancer most likely. She has a mild lactic acidosis. Her UA was negative for acute infection. Chest x-ray was negative for pneumonia. At this time, I do believe the patient warrants admission to the hospital for fever of unknown origin in the setting of immunocompromised state/cancer/chemotherapy. She was given 1 L bolus normal saline and empirically treated with IV ceftazidime and IV vancomycin. I discussed the patient with her oncologist, Dr. Abdirashid Hyatt, who accepted the patient. I also discussed the patient with [facility] hospitalist, Dr. Vargas, who accepted the patient to his service. Lab Data Labs: Lab Results 10/30/24 10/30/24 10/30/24 Range/Units 18:18 18:22 19:25 WBC 4.9 (4.0-11.0) 10^3/uL RBC 2.77 L (4.20-5.40) 10^6/uL Hgb 10.9 L (12.0-16.0) g/dL Hct 30.9 L (36.0-48.0) % MCV 111.6 H (81.0-99.0) fL MCH 39.4 H (26.7-34.0) pg MCHC 35.3 H (29.9-35.2) g/dL RDW 15.8 H (11.0-15.0) % Plt Count 132 L (150-450) 10^3/uL MPV 9.6 (9.5-13.5) fL Seg Neuts % (Manual) 96.0 H (43.0-75.0) Lymphocytes % (Manual) 1.0 L (20.5-60.0) % Monocytes % (Manual) 3.0 (1.7-12.0) % Eosinophils % (Manual) 0.0 L (0.9-7.0) % Basophils % (Manual) 0.0 L (0.2-2.0) % Neutrophils # (Manual) 4.70 (1.4-6.5) 10^3/uL Lymphocytes # (Manual) 0.04 L (1.20-3.80) 10^3/uL Monocytes # (Manual) 0.14 L (0.30-0.80) 10^3/uL Eosinophils # (Manual) 0.00 (0.00-0.70) 10^3/uL Basophils # (Manual) 0.00 (0.00-0.10) 10^3/uL Anisocytosis 1+ Macrocytosis 2+ Sodium 137 (136-145) mmol/L Potassium 3.6 (3.5-5.1) mmol/L Chloride 103 (98-107) mmol/L Carbon Dioxide 26.8 (21.0-32.0) mmol/L Anion Gap 10.8 BUN 12.0 (7.0-18.0) mg/dL Creatinine 0.82 (0.55-1.02) mg/dL Est GFR ( Amer) >60 (>=60 mL/min/1.73m^2) Est GFR (Non-Af Amer) >60 (>=60 mL/min/1.73m^2) BUN/Creatinine Ratio 14.6 Glucose 156 H (74-106) mg/dL Lactate 2.1 H* (0.4-2.0) mmol/L Calcium 8.9 (8.5-10.1) mg/dL Total Bilirubin 2.6 H (0.2-1.0) mg/dL Direct Bilirubin 1.5 H* (0.0-0.2) mg/dL AST 78 H (15-37) U/L ALT 107 H (14-59) U/L Alkaline Phosphatase 99 (46-116) U/L Total Protein 6.6 (6.4-8.2) g/dL Albumin 3.2 L (3.4-5.0) g/dL Globulin 3.4 g/dL Albumin/Globulin Ratio 0.9 Amylase 7 L (25-115) U/L Lipase <10.0 L (16.0-77.0) U/L Urine Color Dk. yellow (YELLOW) Urine Clarity Clear (CLEAR) Urine pH 7.5 (5.0-9.0) Ur Specific [place] 1.015 (1.005-1.025) Urine Protein 100 A (NEG/TRACE) mg/dL Urine Glucose (UA) Negative (NEGATIVE) mg/dL Urine Ketones Trace A (NEGATIVE) mg/dL Urine Occult Blood Negative (NEGATIVE) Urine Nitrite Negative (NEGATIVE) Urine Bilirubin Moderate A (NEGATIVE) Urine Urobilinogen 1.0 (0.2-1.0) EU/dL Ur Leukocyte Esterase Trace A (NEGATIVE) Urine RBC 0-2 (0-2) #/HPF Urine WBC 0-2 A (NONE SEEN) #/HPF Ur Squamous Epith Cells Few A (NONE/RARE) #/LPF Urine Crystals None seen (None Seen) #/HPF Urine Bacteria Trace A (NONE SEEN) #/HPF Urine Casts None seen (NONE SEEN) #/LPF Urine Mucus Trace A (NONE SEEN) Ur Culture Indicated? No SARS-CoV-2 Ag (CV2AG) Negative (NEGATIVE) 10/30/24 Range/Units 21:08 WBC (4.0-11.0) 10^3/uL RBC (4.20-5.40) 10^6/uL Hgb (12.0-16.0) g/dL Hct (36.0-48.0) % MCV (81.0-99.0) fL MCH (26.7-34.0) pg MCHC (29.9-35.2) g/dL RDW (11.0-15.0) % Plt Count (150-450) 10^3/uL MPV (9.5-13.5) fL Seg Neuts % (Manual) (43.0-75.0) Lymphocytes % (Manual) (20.5-60.0) % Monocytes % (Manual) (1.7-12.0) % Eosinophils % (Manual) (0.9-7.0) % Basophils % (Manual) (0.2-2.0) % Neutrophils # (Manual) (1.4-6.5) 10^3/uL Lymphocytes # (Manual) (1.20-3.80) 10^3/uL Monocytes # (Manual) (0.30-0.80) 10^3/uL Eosinophils # (Manual) (0.00-0.70) 10^3/uL Basophils # (Manual) (0.00-0.10) 10^3/uL Anisocytosis Macrocytosis Sodium (136-145) mmol/L Potassium (3.5-5.1) mmol/L Chloride (98-107) mmol/L Carbon Dioxide (21.0-32.0) mmol/L Anion Gap BUN (7.0-18.0) mg/dL Creatinine (0.55-1.02) mg/dL Est GFR ( Amer) (>=60 mL/min/1.73m^2) Est GFR (Non-Af Amer) (>=60 mL/min/1.73m^2) BUN/Creatinine Ratio Glucose (74-106) mg/dL Lactate 0.9 (0.4-2.0) mmol/L Calcium (8.5-10.1) mg/dL Total Bilirubin (0.2-1.0) mg/dL Direct Bilirubin (0.0-0.2) mg/dL AST (15-37) U/L ALT (14-59) U/L Alkaline Phosphatase (46-116) U/L Total Protein (6.4-8.2) g/dL Albumin (3.4-5.0) g/dL Globulin g/dL Albumin/Globulin Ratio Amylase (25-115) U/L Lipase (16.0-77.0) U/L Urine Color (YELLOW) Urine Clarity (CLEAR) Urine pH (5.0-9.0) Ur Specific [place] (1.005-1.025) Urine Protein (NEG/TRACE) mg/dL Urine Glucose (UA) (NEGATIVE) mg/dL Urine Ketones (NEGATIVE) mg/dL Urine Occult Blood (NEGATIVE) Urine Nitrite (NEGATIVE) Urine Bilirubin (NEGATIVE) Urine Urobilinogen (0.2-1.0) EU/dL Ur Leukocyte Esterase (NEGATIVE) Urine RBC (0-2) #/HPF Urine WBC (NONE SEEN) #/HPF Ur Squamous Epith Cells (NONE/RARE) #/LPF Urine Crystals (None Seen) #/HPF Urine Bacteria (NONE SEEN) #/HPF Urine Casts (NONE SEEN) #/LPF Urine Mucus (NONE SEEN) Ur Culture Indicated? SARS-CoV-2 Ag (CV2AG) (NEGATIVE) Discharge Plan Discharge Chief Complaint: Fever Clinical Impression: Fever of unknown origin Patient Disposition: [facility] Time of Disposition Decision: 21:53 Discharge Location: [facility] Condition: Fair Mode of Transportation: EMS
[2024-10-30] MEDS: DEXAMETHASONE SOD PHOS 4 MG/ML VIAL IV (21:52)
[2024-10-31 00:35] VITALS: BP 123/65; PULSE 88; O2SAT 93
[2024-10-31 00:37] VITALS: TEMP 36.8
--- NOTE | 2024-10-31 00:39 | PC.NURSE ---
[facility] arrives for transport to [facility].
== END 2024-10-31 00:45 | disposition short-term general hospital (02) ==
PROVIDERS: Emergency Medicine; Emergency Provider Student in an Organized Health Care Education/Training Program; PCP Family Medicine
DX: R50.9 Fever, unspecified (principal); R53.83 Other fatigue
CPT/HCPCS: 36415; 71045; 80048; 80076; 81001; 82150; 83605; 83690; 85007; 85027; 87040; 87811; 96365; 96367; 96375; 99285; J0713; J1100; J1171; J2405; J3373